=== PATIENT | female | born 1960 | race Asian ===

== ENCOUNTER 2016-10-27 13:00 | Inpatient (IN) | payer MEDICARE, OTHER ==
[~2016-10-27] VITALS: Ht 160 cm; Wt 74.8 kg
--- NOTE | 2016-10-27 13:10 | NUR ---
RICARDO FROM HOME DT CHEST TIGHTNESS/ PRESSURE LIKE- 09/22 SINCE THIS MORNING. PATIENT RECEIVED AA04. APPEARS IN NO APPARENT DISTRESS, RESPIRATION EVEN AND UNLABORED. PATIENT'S SKIN IS WARM TO TOUCH AND NON DIAPHORETIC. PATIENT IS AFEBRILE. VSS
[2016-10-27 13:18] LABS: BASOPHILS # (AUTO) 0.2 /CMM (0.0-0.2); BASOPHILS % (AUTO) 2.6 % (0.0-2.0); EOSINOPHILS # (AUTO) 0.3 /CMM (0.0-0.7); EOSINOPHILS % (AUTO) 4.9 % (0.0-6.0); HEMATOCRIT 38 % (33-45); HEMOGLOBIN 12.6 g/dL (11.5-14.8); LYMPHOCYTES # (AUTO) 1.3 /CMM (0.8-4.8); LYMPHOCYTES % (AUTO) 22.8 % (20.0-44.0); MEAN CORPUSCULAR HEMOGLOBIN 33 PG (26.0-33.0); MEAN CORPUSCULAR HGB CONC 33 g/dl (31.0-36.0); MEAN CORPUSCULAR VOLUME 98 fL (82-100); MONOCYTES # (AUTO) 0.3 /CMM (0.1-1.30); MONOCYTES % (AUTO) 5.7 % (2.0-12.0); NEUTROPHILS # (AUTO) 3.7 /CMM (1.8-8.9); PLATELET COUNT (AUTO) 95 /CMM (150-450); RDW COEFFICIENT OF VARIATION 13.3 (11.5-15.0); RED BLOOD CELL COUNT(AUTO) 3.86 MIL/uL (4.0-5.2); WHITE BLOOD COUNT (AUTO) 5.8 K/uL (4.3-11.0)
--- NOTE | 2016-10-27 13:20 | NUR ---
PATIENT WAS TAKEN TO CT
[2016-10-27 13:27] LABS: CALCIUM, SERUM 8.6 mg/dL (8.5-10.1); CARBON DIOXIDE 28 mmol/L (21-32); CHLORIDE 106 mmol/L (98-107); CREATININE 1.3 mg/dL (0.6-1.3); GLUCOSE 181 mg/dL (74-106); POTASSIUM 4.1 mmol/L (3.5-5.1); SODIUM SERUM 140 mmol/L (136-145); UREA NITROGEN, BLOOD 19 mg/dL (7-18)
[2016-10-27] MEDS ORDERED: IV NS 0.9% 500 ML BAG IV ONE (13:30)
--- NOTE | 2016-10-27 13:30 | NUR ---
PT IS BACK FROM CT
[2016-10-27 13:32] LABS: INR 1.06 (0.87-1.13)
[2016-10-27 13:34] LABS: TROPONIN I < 0.017 ng/mL (0.00-0.056)
[2016-10-27 13:38] LABS: ALANINE AMINOTRANSFERASE 55 U/L (12-78); ALBUMIN 2.5 g/dL (3.4-5.0); ALKALINE PHOSPHATASE 128 U/L (46-116); ASPARTATE AMINOTRANSFERASE 84 U/L (15-37); BILIRUBIN,DIRECT 0.3 mg/dL (0.0-0.2); BILIRUBIN,TOTAL 0.9 mg/dL (0.2-1.0); LIPASE 225 U/L (73-393); TOTAL PROTEIN, SERUM 6.9 g/dL (6.4-8.2)
--- NOTE | 2016-10-27 13:52 | NUR ---
PATIENT WILL BE ADMITTED INTO ROOM 312-2.
--- NOTE | 2016-10-27 14:15 | NUR ---
REPORT GIVEN TO EVELYN ALBERTO FOR CONTINUITY OF CARE
[2016-10-27 14:17] LABS: APPEARANCE,URINE Clear (CLEAR); BILIRUBIN,URINE Negative (NEGATIVE); BLOOD, URINE Moderate Ery/uL (NEGATIVE); COLOR,URINE Yellow (YELLOW); KETONES,URINE Negative (NEGATIVE); LEUKOCYTE ESTERASE ,URINE Negative (NEGATIVE); NITRITE, URINE Negative (NEGATIVE); PROTEIN,URINE >=300 mg/dl (NEGATIVE); UGLUCOSE Negative (NEGATIVE)
[2016-10-27 14:23] LABS: BACTERIA,URINE Rare /HPF (None Seen); SQUAMOUS EPITHELIAL CELL,UR Moderate /HPF (None Seen)
--- NOTE | 2016-10-27 14:23 | NUR ---
CALLED [employer], BUTTON DECORATING MACHINE OPERATOR WAS PAGED.
[2016-10-27] MEDS ORDERED: DULO30CA2 PO (14:42)
[2016-10-27] MEDS ORDERED: TOPI50TA21 PO (14:42)
[2016-10-27] MEDS ORDERED: GABA-534 PO (14:42)
[2016-10-27] MEDS ORDERED: FLUT16SP BNOSTRILS (14:42)
[2016-10-27] MEDS ORDERED: CARV3.122 PO (14:42)
[2016-10-27] MEDS ORDERED: TEMA30CA PO (14:42)
[2016-10-27] MEDS ORDERED: FURO40TA5 PO (14:42)
[2016-10-27] MEDS ORDERED: AMLO2.5T PO (14:42)
[2016-10-27] MEDS ORDERED: INSU3INS6 SQ (14:42)
[2016-10-27] MEDS ORDERED: ROSU10TA PO (14:42)
[2016-10-27] MEDS ORDERED: SUCR1TAB PO (14:42)
[2016-10-27] MEDS ORDERED: LIRA0.6P SQ (14:42)
[2016-10-27] MEDS ORDERED: LORA1TAB PO (14:42)
[2016-10-27] MEDS ORDERED: ESOM40CA PO (14:42)
[2016-10-27] MEDS ORDERED: CALC667C6 PO (14:42)
[2016-10-27] MEDS ORDERED: FLUT1BLS IH (14:42)
[2016-10-27] MEDS ORDERED: FEBU40TA PO (14:42)
[2016-10-27] MEDS ORDERED: LEVO5TAB13 PO (14:42)
[2016-10-27] MEDS ORDERED: METRONIDAZOLE 500MG/ NS 100ML 100 ML IV ONE ×2 (14:58→15:00)
[2016-10-27] MEDS ORDERED: LEVOFLOXACIN 750 MG /D5W 150ML 150 ML IV ONE ×2 (14:58→15:00)
[2016-10-27] MEDS ORDERED: ASPIRIN 325 MG TABLET PO ONE (15:00)
[2016-10-27] MEDS ORDERED: FLUTICASONE PROPIONATE 16 GM BOTTLE NS PRN (15:00)
[2016-10-27] MEDS ORDERED: Z GUARD REMEDY 2 OZ OINT TP PRN (15:00)
[2016-10-27] MEDS ORDERED: ZOLPIDEM TARTRATE 5 MG TABLET PO PRN (15:00)
[2016-10-27] MEDS ORDERED: LORAZEPAM 1 MG TABLET PO PRN (15:00)
[2016-10-27] MEDS ORDERED: ACETAMINOPHEN 325 MG TABLET PO PRN (15:00)
[2016-10-27] MEDS ORDERED: MAG HYDROX/AL HYDROX/SIMETH 30 ML UDC PO PRN (15:00)
[2016-10-27] MEDS ORDERED: HYDROMORPHONE INJ 2 MG/ML DISP.SYRIN IV PRN (15:00)
[2016-10-27] MEDS ORDERED: MAGNESIUM HYDROXIDE 30 ML UDC PO PRN (15:00)
[2016-10-27] MEDS ORDERED: ASPIRIN 325 MG TABLET ONE (15:11)
--- NOTE | 2016-10-27 15:23 | NUR ---
PT TRANSPORTED TO [address] [place] [address]
[2016-10-27 15:30] VITALS: BP 166/95
--- NOTE | 2016-10-27 15:30 | NUR ---
APPLIANCE REPAIR TECHNICIAN NOTES 55 YEARS OLD BROUGHT IN FROM ER, ADMITTED FOR CHEST PAIN FROM HOME. PATIENT IS A/O X4, AMBULATORY. IV IN LEFT HAND G20. MADE COMFORTABLE IN BED, LEADS APPLIED. V/S TAKEN AND RECORDED. PATIENT IS COOPERATIVE. LEVAQUIN 750MG IV AND METRONIDAZOLE 500MG CURRENTLY INFUSING DURING TRANSFERRED FROM ER, NO S/S OF ADVERSE REACTION. PLACE CALL LIGHT WITHIN REACH. WILL CONT TO MONITOR.
[2016-10-27 15:48] LABS: BAND % (MANUAL) 2 % (0.0-5.0); LYMPHOCYTES % (MANUAL) 17 % (16-48); MONOCYTES % (MANUAL) 3 % (0-11.0); NEUTROPHILS % (MANUAL) 78 (42-76)
[2016-10-27 16:00] VITALS: BP 153/94
[2016-10-27] MEDS: IV NS 0.9% 1,000 ML IV PRN (16:21)
--- NOTE | 2016-10-27 16:52 | NUR ---
PATIENT IS REQUESTING DILAUDID MEDICATION, PATIENT IS ON TYLENOL PO PRN. LISTED PATIENT ALLERGY TO MORPHINE. PATIENT STATED SHE IS TAKING DILAUDID WITHOUT PROBLEM OR ANY SIDE EFFECT, WITNESSED BY SHARATH. NOTIFIED DR. BAEZ, ORDERED DILAUDID 0.5MG IV Q 6HR PRN, NOTED AND ACKNOWLEDGED.
--- NOTE | 2016-10-27 17:22 | NUR ---
ELEVATED LACTIC ACID 2.[address] BAEZ.
[2016-10-27] MEDS: HYDROMORPHONE 1 MG/1 ML DISP.SYRIN IV PRN (18:21)
--- NOTE | 2016-10-27 18:49 | NUR ---
ARCHITECTURAL REPRESENTATIVE CLOSING NOTES PATIENT IN BED, ON ROOM AIR, NO SOB. ON TELE MONITOR SINUS RHYTHM WITH BBB HR 91. NO EPISODE OF CHEST PAIN DURING THE SHIFT. APPEARS COMFORTABLE IN BED. IV IN LEFT HAND G20 PATENT AND INTACT, IV NS INFUSING AT 75ML/HR. CALL LIGHT WITHIN REACH. WILL ENDORSE TO PERFUMER RN FOR CONTINUITY OF CARE.
--- NOTE | 2016-10-27 19:30 | NUR ---
MS CHRISTOPHER INITIAL NOTES GOT REPORT FROM AN NURSE DOLLY. SEEN PT IN BED AWAKE AND ALERT WATCHING TV WITH IV INFUSING AT THIS TIME. DENIES ANY PAIN OR ANY DISCOMFORT.TELE SR PER MONITOR. SHE ALSO WITH DVT PUMP ON BILATERAL LOWER LEGS . NO EDEMA NOTED. ENCOURAGE HER TO USED THE CALL LIGHT SYSTEM IF SHE NEEDS SOME HELP OR ASSISTANCE WILL CONTINUE TO MONITOR. PLACE CALL LIGHT AT REACH.
[2016-10-27 20:04] VITALS: BP 136/80
--- NOTE | 2016-10-27 20:11 | NUR ---
MANAGER BRAND/CLOSING NOTES' ENDORSE TO ANOTHER NURSE FOR CONTINUITY OF CARE.
--- NOTE | 2016-10-27 20:12 | NUR ---
RN NOTES RECEIVED PT AWAKE, HOB ELEVATED, NO SOB, NOT IN DISTRESS, ON ROOM AIR AND TOLERATED WELL. PT ALERT AND ORIENTED X4, DENIES PAIN, NAUSEA AND VOMITING AT THIS TIME. TELE MONITOR READS SINUS RHYTHM WITH HEART RATE AT 90. IV ACCESS ON LEFT HAND PATENT AND INTACT WITH ONGOING IVF INFUSING WELL. DVT PUMP ON AND TOLERATED WELL. KEPT COMFORTABLE AND ATTENDED. KEPT BED IN THE LOWEST POSITION, LOCKED, SIDE RAILS X2 UP WITH CALL LIGHT WITH IN REACH. WILL CONTINUE TO MONITOR PT.
[2016-10-27 22:00] VITALS: BP 136/80
[2016-10-27] MEDS: GABAPENTIN 300 MG CAPSULE PO SCH (22:09)
[2016-10-27] MEDS: INSULIN DETEMIR 100 UNIT/ML CARTRIDGE SQ SCH (22:10)
[2016-10-27] MEDS: TEMAZEPAM 15 MG CAPSULE PO PRN (22:11)
[2016-10-27] MEDS: ONDANSETRON HCL/PF 4 MG/2 ML VIAL IVP PRN (22:12)
--- NOTE | 2016-10-27 22:12 | NUR ---
RN NOTES PT VERBALIZED DIFFICULTY IN SLEEPING AND FEELS NAUSEATED. RESTORIL 30 MGS TAB AND ZOFRAN 4 MG IV GIVEN. WILL CONTINUE TO MONITOR PT.
--- NOTE | 2016-10-27 23:15 | NUR ---
RN NOTES RECEIVED NEW ORDER FROM DR BAEZ, PT FOR FNA OF ABDOMINAL FLUID WITH US GUIDANCE AND US GUIDED CYST ASPIRATION. PT MADE AWARE AND WILL PLACE PT ON NPO AFTER MIDNIGHT. PT WILL SIGN CONSENT IN AM.
[2016-10-27] MEDS ORDERED: PIPERACILLIN /TAZOBACTAM 2.25 G VIAL IV ONE (23:49)
[2016-10-28] VITALS (9 sets, daily range): BP systolic 136–157; BP diastolic 75–99
[2016-10-28] MEDS: HYDROMORPHONE 1 MG/1 ML DISP.SYRIN IV PRN ×3 (00:16→16:50)
--- NOTE | 2016-10-28 00:16 | NUR ---
RN NOTES PT COMPLAINS OF ABDOMINAL PAIN 10/23, DILAUDID 0.5 MG GIVEN IV. WILL CONTINUE TO MONITOR.
[2016-10-28] MEDS: PIPERACILLIN /TAZOBACTAM 4.5 G in IV D5W 50 ML IV SCH ×2 (00:25→05:31)
[2016-10-28] MEDS: ONDANSETRON HCL/PF 4 MG/2 ML VIAL IVP PRN ×2 (04:56→13:42)
--- NOTE | 2016-10-28 04:56 | NUR ---
RN NOTES PT FEELS NAUSEATED, ZOFRAN 4 MG GIVEN IV. WILL CONTINUE TO MONITOR PT.
[2016-10-28] MEDS ORDERED: PIPERACILLIN /TAZOBACTAM 2.25 G VIAL IV ONE ×2 (05:13→05:17)
[2016-10-28] MEDS: IV NS 0.9% 1,000 ML IV PRN (05:20)
--- NOTE | 2016-10-28 06:39 | NUR ---
RN NOTES PT AWAKE, NO SOB, NOT IN DISTRESS ON ROOM AIR WITH GOOD SATURATION. VITAL SIGNS STABLE, AFEBRILE. TELEMONITOR READS SINUS RHYTHM WITH HEART RATE AT 90. NO COMPLAIN OF CHEST PAIN, NO EPISODE OF VOMITING, NAUSEATED X2 CONTROLLED BY ZOFRAN IV. PT FOR FNA OF ABDOMINAL FLUID WITH ULTRASOUND GUIDANCE AND ULTRA SOUND GUIDED CYST ASPIRATION. PLACED PT ON NPO SINCE MIDNIGHT. KEPT PAIN AT TOLERABLE LEVEL. ALL NEEDS ATTENDED. WILL ENDORSE TO MORNING RN FOR CONTINUITY OF CARE.
[2016-10-28 07:00] LABS: BASOPHILS % (AUTO) 0.5 % (0.0-2.0); EOSINOPHILS # (AUTO) 0.6 /CMM (0.0-0.7); EOSINOPHILS % (AUTO) 11.5 % (0.0-6.0); HEMATOCRIT 35 % (33-45); HEMOGLOBIN 12.1 g/dL (11.5-14.8); LYMPHOCYTES # (AUTO) 1.6 /CMM (0.8-4.8); LYMPHOCYTES % (AUTO) 29.6 % (20.0-44.0); MEAN CORPUSCULAR HEMOGLOBIN 34 PG (26.0-33.0); MEAN CORPUSCULAR HGB CONC 34 g/dl (31.0-36.0); MEAN CORPUSCULAR VOLUME 98 fL (82-100); MONOCYTES # (AUTO) 0.4 /CMM (0.1-1.30); MONOCYTES % (AUTO) 7.2 % (2.0-12.0); NEUTROPHILS # (AUTO) 2.8 /CMM (1.8-8.9); NEUTROPHILS % (AUTO) 51.2 % (43.0-81.0); RDW COEFFICIENT OF VARIATION 14.4 (11.5-15.0); RED BLOOD CELL COUNT(AUTO) 3.59 MIL/uL (4.0-5.2); WHITE BLOOD COUNT (AUTO) 5.5 K/uL (4.3-11.0)
[2016-10-28 07:17] LABS: CALCIUM, SERUM 8.1 mg/dL (8.5-10.1); CREATININE 1.1 mg/dL (0.6-1.3); MAGNESIUM 1.7 mg/dL (1.8-2.4); PHOSPHORUS 3.9 mg/dL (2.5-4.9); POTASSIUM 4.1 mmol/L (3.5-5.1)
[2016-10-28 07:43] LABS: PLATELET COUNT (AUTO) 40 /CMM (150-450)
--- NOTE | 2016-10-28 08:00 | NUR ---
AUTOMOBILE RELOCATION ENGINEER AM NOTES RECEIVED PT AWAKE, HOB ELEVATED, NO SOB, NOT IN DISTRESS, ON ROOM AIR AND TOLERATED WELL. PT ALERT AND ORIENTED X4, DENIES PAIN, NAUSEA AND VOMITING AT THIS TIME. TELE MONITOR READS SINUS RHYTHM WITH HEART RATE AT 73. IV ACCESS ON LEFT HAND PATENT AND INTACT WITH ONGOING IVF INFUSING WELL TO RFA. DVT PUMP ON AND TOLERATED WELL. KEPT COMFORTABLE AND ATTENDED. KEPT BED IN THE LOWEST POSITION, LOCKED, SIDE RAILS X2 UP WITH CALL LIGHT WITH IN REACH. WILL CONTINUE TO MONITOR PT.
[2016-10-28 08:13] LABS: EOSINOPHILS % (MANUAL) 15 % (0-4); LYMPHOCYTES % (MANUAL) 33 % (16-48); MONOCYTES % (MANUAL) 7 % (0-11.0); NEUTROPHILS % (MANUAL) 45 (42-76)
[2016-10-28] MEDS: ATORVASTATIN 10 MG TABLET PO SCH (09:00)
[2016-10-28] MEDS ORDERED: LEVOCETIRIZINE DIHYDROCHLORIDE 5 MG PO PRN (09:00)
[2016-10-28] MEDS: DULOXETINE HCL 30 MG CAPSULE.DR PO SCH (09:00)
[2016-10-28] MEDS ORDERED: FLUTICASONE/VILANTEROL 1 EACH BLST.W.DEV IH PRN (09:00)
[2016-10-28] MEDS: TOPIRAMATE 25 MG TABLET PO SCH (09:00)
[2016-10-28] MEDS: SUCRALFATE 1 G TABLET PO SCH (09:00)
[2016-10-28] MEDS: Magnesium 1GM/D5W 100ML PREMIX 100 ML IV SCH ×4 (09:54→17:54)
--- NOTE | 2016-10-28 10:17 | NUR ---
WOUND CARE CONSULT: PT PRESENTS WITH INTACT SKIN AND SOME STAINING OF SKIN AT COCCYX AREA WITH BLANCHABLE REDNESS AND SMALL SCAR. PT ABLE TO TURN AND REPOSITION HERSELF IN BED. PT IS CONTINENT. YOSEPH SCORE IS 19. WILL SEE PRN. Addendum: 10/28/16 at 1019 by FRITZ JAMES WNDNU Amended: Links added.
[2016-10-28] MEDS ORDERED: FEE PK DOSING 1 MIN EA MC ONE (10:32)
--- NOTE | 2016-10-28 11:30 | NUR ---
PT WAS BROUGHT DOWN FOR HIDA SCAN PROCEDURE.STABLE V/S DENYING PAIN OR DISTRESS.
[2016-10-28 13:17] LABS: THYROID STIMULATING HORMONE 2.114 uIU/mL (0.358-3.74); URIC ACID 6.7 mg/dL (2.6-7.2)
--- NOTE | 2016-10-28 13:24 | NUR ---
PT CAME BACK FROM HIDA SCAN PROCEDURE.
[2016-10-28] MEDS: AMLODIPINE BESYLATE 2.5 MG TABLET PO SCH (13:50)
[2016-10-28] MEDS: CARVEDILOL 3.125 MG TABLET PO SCH (13:51)
[2016-10-28] MEDS: PANTOPRAZOLE 40 MG TABLET.DR PO SCH (13:51)
[2016-10-28] MEDS: FUROSEMIDE 40 MG TABLET PO SCH (13:52)
[2016-10-28] MEDS: VANCOMYCIN 1 GM in IV D5W 250 ML IV SCH ×2 (13:53→23:04)
[2016-10-28] MEDS: PIPERACILLIN /TAZOBACTAM 3.375 G in IV D5W 50 ML IV SCH ×2 (15:18→18:00)
[2016-10-28] MEDS: BOOST GLUCOSE CONTROL VANILLA 237 ML BOX PO SCH (17:54)
--- NOTE | 2016-10-28 18:00 | NUR ---
ZOSYN IV SCHEDULED FOR 1800 HELD DUE TO BEING JUST ADMINISTERED 3 HRS AGO BECAUSE OF THE HIDA SCAN PROCEDURE DELAYING THE ADMINISTRATION OF ZOSYN IV. NOTIFIED THE PHARMACIST WHO STATED TO HOLD THE 1800 DOSE SINCE IT'S TOO SOON.
[2016-10-28] MEDS: ONDANSETRON HCL/PF 4 MG/2 ML VIAL IV PRN ×2 (18:08→23:31)
[2016-10-28] MEDS ORDERED: IV NS 0.9% 250 ML IV ONE (19:05)
[2016-10-28] MEDS ORDERED: IOHEXOL-300 100 ML VIAL IV ONE (19:05)
[2016-10-28] MEDS ORDERED: BARIUM SULFATE SUSP 450 ML BOTTLE PO ONE (19:06)
--- NOTE | 2016-10-28 19:20 | NUR ---
RN NOTES RECEIVED PT AWAKE, HOB ELEVATED, NO SOB, NOT IN DISTRESS, ON ROOM AIR AND TOLERATED WELL. PT ALERT AND ORIENTED X4, DENIES PAIN, NAUSEA AND VOMITING AT THIS TIME. TELE MONITOR READS SINUS RHYTHM WITH HEART RATE AT 78. IV ACCESS ON LEFT HAND PATENT AND INTACT WITH ONGOING IVF INFUSING WELL. DVT PUMP ON AND TOLERATED WELL. KEPT COMFORTABLE AND ATTENDED. KEPT BED IN THE LOWEST POSITION, LOCKED, SIDE RAILS X2 UP WITH CALL LIGHT WITH IN REACH. WILL CONTINUE TO MONITOR PT.
--- NOTE | 2016-10-28 19:23 | NUR ---
FORESTRY TECHNICAL OFFICER ATTEMPTED TO ADMINISTER ORAL CONTRAST FOR CT PELVIS/ABD SCAN. PATIENT UNABLE TO KEEP ORAL CONTRAST IN AND VOMITED THE CONTRAST. NOTIFIED VARSHA RETIREMENT ASSISTANT AND LEFT AND MESSAGE IN VOICEMAIL ABOUT SITUATION. AWAITING CALL BACK.
--- NOTE | 2016-10-28 19:30 | NUR ---
RN NOTES PT FOR CT OF ABDOMEN AND PELVIS WITH PO AND IV CONTRAST. UNABLE TO DO CT WITH PO BECAUSE PT FEELS NAUSEATED WITH THE CONTRAST. NEW IV ACCESS STARTED ON RIGHT WRIST WITH GAUGE [address] WITH IV CONTRAST. PT WAS PICKED UP FOR CT OF ABDOMEN WITH IV CONTRAST IN STABLE CONDITION.
[2016-10-28] MEDS: GABAPENTIN 300 MG CAPSULE PO SCH (22:53)
--- NOTE | 2016-10-28 22:53 | NUR ---
RN NOTES PT FEELS ANXIOUS, PT IS VERBALIZING REGARDING HEALTH CONDITION. ATIVAN 1 MG TAB GIVEN PO AND TOLERATED WELL. WILL CONTINUE TO MONITOR PT.
[2016-10-28] MEDS: INSULIN DETEMIR 100 UNIT/ML CARTRIDGE SQ SCH (23:03)
--- NOTE | 2016-10-28 23:03 | NUR ---
RN NOTES BLOOD SUGAR CHECKED 215MG/DL, LEVEMIR 20 UNITS GIVEN SUBCU. WILL CONTINUE TO MONITOR PT.
--- NOTE | 2016-10-28 23:31 | NUR ---
RN NOTES PT FEELS NAUSEATED, ZOFRAN 4 MG GIVEN IV. WILL CONTINUE TO MONITOR PT.
[2016-10-29] VITALS (13 sets, daily range): BP systolic 113–162; BP diastolic 59–97
[2016-10-29] MEDS: PIPERACILLIN /TAZOBACTAM 3.375 G in IV D5W 50 ML IV SCH ×5 (00:38→23:19)
--- NOTE | 2016-10-29 03:00 | NUR ---
RN NOTES CALLED BLOOD BANK TO FOLLOW UP FOR THE PLATELET 2 UNITS THAT WAS ORDERED, PER QA LEAD ITS READY BUT IT NEEDS TO BE PROCESSED. WILL CALL WHEN ITS READY.
--- NOTE | 2016-10-29 04:15 | NUR ---
RN NOTES 1ST UNIT OF PLATELET TAKEN BUT UNABLE TO SCAN, IT SAYS SCANNED PRODUCT DOES NOT MATCH THE SELECTED UNIT, TRIED SEVERAL TIMES BUT UNABLE TO GO THROUGH. CALLED BLOOD BANK, PER MACHINE MAINTENANCE REPAIRER RETURN THE PLATELET AND WILL TRY TO RESOLVE THE PROBLEM.
--- NOTE | 2016-10-29 05:00 | NUR ---
RN NOTES ON HAND PLATELET BAG RETURNED TO BLOOD BANK, TRIED TO RESOLVE THE PROBLEM BY THE BIOINFORMATICS ASSISTANT BUT UNABLE TO DO SO. PER BIOINFORMATICS ASSISTANT TO COME BACK AT 0530 FOR THE OTHER BIOINFORMATICS ASSISTANT TO RESOLVE THE PROBLEM.
--- NOTE | 2016-10-29 05:30 | NUR ---
RN NOTES CAME BACK TO BLOOD BANK, ANOTHER INSTRUCTIONAL COACH TRIED TO RESOLVE THE ISSUE. IT WAS FOUND OUT THAT THE PLATELET UNIT THAT WAS ISSUED IS THE 2ND BAG. TRIED TO RESOLVE THE PROBLEM IN THE SYSTEM BUT UNABLE TO DO SO. IT NEEDS THE IT TO RESET IT IN THE SYSTEM. I ASK FOR THE OTHER UNIT OF PLATELET SO IT CAN BE TRANSFUSE TO THE PT WHILE RESOLVING THE ISSUE.
--- NOTE | 2016-10-29 06:05 | NUR ---
RN NOTES FIRST UNIT OF PLATELET STARTED. VITAL SIGNS STABLE. PT DENIES ANY DISCOMFORT. WILL CONTINUE TO MONITOR PT.
--- NOTE | 2016-10-29 06:35 | NUR ---
RN NOTES FIRST UNIT ABOUT TO FINISH, WENT TO BLOOD BANK TO GET THE SECOND UNIT BUT ITS NOT FIXED YET IN THE SYSTEM. IT WAS PLACED A PRIORITY FOR THE IT TO FIXED AND WILL GIVE A CALL WHEN ITS READY. CHARGE NURSE MADE AWARE.
--- NOTE | 2016-10-29 06:39 | NUR ---
RN NOTES FIRST UNIT OF PLATELET TRANSFUSED. VITAL SIGNS STABLE. PT DENIES ANY DISCOMFORT. WILL CONTINUE TO MONITOR PT.
--- NOTE | 2016-10-29 07:20 | NUR ---
RN NOTES PT AWAKE, NO SOB, NOT IN DISTRESS, ON ROOM AIR AND TOLERATED WELL. VITAL SIGNS STABLE, AFEBRILE. DENIES CHEST PAIN, NO EPISODE OF VOMITING. HAD 1 EPISODE OF NAUSEA. PLACED ON NPO AFTER MIDNIGHT FOR TODAY'S PROCEDURE. NO REACTION TO PLATELET TRANSFUSION. TELEMONITOR READS SINUS RHYTHM AT 78. ALL NEEDS ATTENDED. ENDORSED TO MORNING RN TO FOLLOW UP WITH BLOOD BANK FOR THE SECOND UNIT OF PLATELET AND FOR CONTINUITY OF CARE.
[2016-10-29] MEDS: PANTOPRAZOLE 40 MG TABLET.DR PO SCH (07:30)
--- NOTE | 2016-10-29 08:00 | NUR ---
HOST/HOSTESS AM NOTES: RECEIVED PATIENT AWAKE IN BED. LOC X4. NO DISTRESS NOTED. PATIENT NPO PRIOR TO SURGERY. AMBULATORY. ON 2L NC SATING AT 99%. NO SOB NOTED. NO PAIN NOTED. VS STABLE. RESTING IN BED COMFORTABLY. CALL LIGHT WITHIN REACH.
[2016-10-29] MEDS: ONDANSETRON HCL/PF 4 MG/2 ML VIAL IV PRN (08:19)
[2016-10-29] MEDS: DULOXETINE HCL 30 MG CAPSULE.DR PO SCH (09:00)
[2016-10-29] MEDS: SUCRALFATE 1 G TABLET PO SCH (09:00)
[2016-10-29] MEDS: ATORVASTATIN 10 MG TABLET PO SCH (09:00)
[2016-10-29] MEDS: BOOST GLUCOSE CONTROL VANILLA 237 ML BOX PO SCH ×3 (09:00→15:50)
[2016-10-29] MEDS: TOPIRAMATE 25 MG TABLET PO SCH (09:00)
[2016-10-29 09:16] LABS: BASOPHILS % (AUTO) 0.3 % (0.0-2.0); EOSINOPHILS # (AUTO) 0.9 /CMM (0.0-0.7); HEMATOCRIT 36 % (33-45); HEMOGLOBIN 12.1 g/dL (11.5-14.8); LYMPHOCYTES # (AUTO) 1.4 /CMM (0.8-4.8); LYMPHOCYTES % (AUTO) 22.5 % (20.0-44.0); MEAN CORPUSCULAR HEMOGLOBIN 33 PG (26.0-33.0); MEAN CORPUSCULAR HGB CONC 34 g/dl (31.0-36.0); MEAN CORPUSCULAR VOLUME 98 fL (82-100); MONOCYTES # (AUTO) 0.5 /CMM (0.1-1.30); MONOCYTES % (AUTO) 7.3 % (2.0-12.0); NEUTROPHILS # (AUTO) 3.6 /CMM (1.8-8.9); NEUTROPHILS % (AUTO) 55.9 % (43.0-81.0); PLATELET COUNT (AUTO) 99 /CMM (150-450); RDW COEFFICIENT OF VARIATION 13.9 (11.5-15.0); RED BLOOD CELL COUNT(AUTO) 3.65 MIL/uL (4.0-5.2); WHITE BLOOD COUNT (AUTO) 6.4 K/uL (4.3-11.0)
--- NOTE | 2016-10-29 09:25 | NUR ---
PLATELETS VERIFIED WITH CO-RN WITH PROBLEM IN SCANNER,CALLED AND CLARIFIED WITH BLOOD BANK AND SPOKE TO TANYA WHO STATED THAT THEY ARE HAVING A PROBLEM WITH THE COMPUTER SYSTEM AND STATED THAT THE BLOOD PRODUCT(PLATELETS) IS MADE TO GO AND IS OK TO BE TRANSFUSED.
[2016-10-29 09:30] LABS: CALCIUM, SERUM 8.4 mg/dL (8.5-10.1); CREATININE 1.3 mg/dL (0.6-1.3); PHOSPHORUS 3.6 mg/dL (2.5-4.9); POTASSIUM 3.7 mmol/L (3.5-5.1)
[2016-10-29] MEDS ORDERED: NALOXONE PREFILLED SYRINGE 2 MG/2 ML SYRINGE IV ONE (09:30)
[2016-10-29] MEDS ORDERED: MIDAZOLAM HCL 5MG/ML VIAL 25 MG/5 ML VIAL IV ONE (09:30)
[2016-10-29] MEDS ORDERED: FENTANYL PF 250MCG/5ML AMPUL IV ONE (09:30)
--- NOTE | 2016-10-29 09:31 | NUR ---
STARTED PLATELETS TRANSFUSION AT 0931. PATIENT STABLE. NO DISTRESS NOTED. VS STABLE. MONITORING FOR ANY ADVERSE REACTIONS. STARTED PLATELETS AFTER VERIFYING WITH ANOTHER RN.
[2016-10-29 09:36] LABS: INR 1.09 (0.87-1.13); PROTHROMBIN TIME 11.7 SECS (9.5-12.7)
--- NOTE | 2016-10-29 09:46 | NUR ---
REASSESSED PATIENT VS AFTER 15MINTUES OF STARTING TRANSFUSION. NO DISTRESS NOTED. NO PAIN NOTED. NO SOB NOTED. NO ADVERSE REACTIONS NOTED. VS STABLE. IV LINE PATENT. WILL CONTINUE TO MONITOR.
[2016-10-29 09:50] LABS: EOSINOPHILS % (MANUAL) 9 % (0-4); LYMPHOCYTES % (MANUAL) 22 % (16-48); MONOCYTES % (MANUAL) 5 % (0-11.0); NEUTROPHILS % (MANUAL) 64 (42-76)
[2016-10-29] MEDS ORDERED: LIDOCAINE HCL/PF 1% 30 ML SDV ONE (09:56)
--- NOTE | 2016-10-29 10:00 | NUR ---
AT 1000 PATIENT TRANSFERRED VIA BED TO RADIOLOGY FOR CT SCAN AND DRAINAGE OF ADALBERTO-RENAL FLUID. PLATELETS INFUSION CONTINUED. PATIENT STABLE UPON TRANSFER.
--- NOTE | 2016-10-29 10:30 | NUR ---
PLATELET UNIT #2 COMPLETED. VSS. NO EVIDENCE OF ANY ADVERSE REACTIONS.,
--- NOTE | 2016-10-29 10:30 | NUR ---
PT TAKEN TO RADIOLOGY DEPT FOR A PROCEDURE, RT PERCUTANEOUS DRAINAGE (ADALBERTO-RENAL). CONSENT WAS SIGNED BY PT AFTER MD EXPLAINED PROCEDURE WITNESSED BY PRIMARY NURSE.PT VERBALIZED UNDERSTANDIN. PT HAS BEEN NPO SINCE MIDNITE. VSS. AIRWAY PATENT.
--- NOTE | 2016-10-29 10:51 | NUR ---
TIME OUT INITIATED AND COMPLETED WITH (DR BOOKER) AND RN INTO WHICH ALL CONCURRED , VERIFICATIONS CHECKED OUT. PT ON MONITOR WITH 02 VIA [employer].
--- NOTE | 2016-10-29 11:00 | NUR ---
MD AT BEDSIDE PREPPING SITE WITH COMPLETE STERILE TECHNIQUE/ FIELD OBSERVED.
--- NOTE | 2016-10-29 11:05 | NUR ---
VERSED ADMINSITERED. PT REMAINS ON MONITOR, AIRWAY PATENT AND PROTECTED WITH VISIBLE CHEST RISE/FALL.
--- NOTE | 2016-10-29 11:10 | NUR ---
NO CHANGE IN MENTAL STATUS. VSS REMAINS STABLE WITH SP02 100% , VISIBLE CHEST RIST/FALL.
--- NOTE | 2016-10-29 11:15 | NUR ---
STERILE FIELD/TECHNIQUE BEING MAINTAINED BY
--- NOTE | 2016-10-29 11:30 | NUR ---
AIRWAY REMAINS PATENT AND PROTECTED. VISIBLE CHEST RISE/FALL. VSS.
--- NOTE | 2016-10-29 11:38 | NUR ---
MENTAL STATUS REMAINS INTACT, DENIES PAIN. REPORTS SHE IS COMFORTABLE.
--- NOTE | 2016-10-29 11:47 | NUR ---
PROCEDURE STILL IN PROGRESS WITH APPROX 5 ML BRB ASPIRATED. NO CHANGE IN CONDITION. PT CONT TO DENY PAIN.
--- NOTE | 2016-10-29 11:51 | NUR ---
PROCEDURE COMPLETED. NO BREAK IN STERILFE FIELD/TECHNIQUE OBSERVED. AIRWAY REMAINS PATENT AND PROTECTED.
--- NOTE | 2016-10-29 12:08 | NUR ---
PT BACK INTO HER ROOM. SBAR TO PRIMARY RN.NO COMPLICATIONS FROM PROCEDURE.
--- NOTE | 2016-10-29 12:20 | NUR ---
POST OP CT ADALBERTO-RENAL DRAINAGE NOTE: PATIENT RETURNED FROM RADIOLOGY POST CT ADALBERTO-RENAL DRAINAGE. VS UPON ARRIVAL 158/86, PULSE 84, RR20, TEMP 98.4, O2 100% ON 2L NC. PATIENT PLATELETS TRANSFUSION CONTINUED AND COMPLETED DURING PROCEDURE. NO DISTRESS NOTED. NO PAIN NOTED. NO SOB. NO N/V NOTED AFTER ATE LUNCH IN ROOM. ADMINISTERED ALL MEDICATIONS ORDERED. RESTING COMFORTABLY IN BED. CALL LIGHT WITHIN REACH. WILL CONTINUE TO MONITOR.
[2016-10-29] MEDS: VANCOMYCIN 1 GM in IV D5W 250 ML IV SCH (12:38)
[2016-10-29] MEDS: IV NS 0.9% 1,000 ML IV PRN (12:39)
[2016-10-29] MEDS: FUROSEMIDE 40 MG TABLET PO SCH (12:47)
[2016-10-29] MEDS: AMLODIPINE BESYLATE 2.5 MG TABLET PO SCH (12:47)
[2016-10-29] MEDS: CARVEDILOL 3.125 MG TABLET PO SCH (12:47)
--- NOTE | 2016-10-29 13:10 | NUR ---
NARCAN IV,SUBLIMAZE IV AND VERSED IV MEDS WERE GIVEN IN RADIOLOGY DURING CT PERCUTANEOUS DRAINAGE OF RT PERIRENAL FLUID COLLECTION PROCEDURE.
[2016-10-29 14:16] LABS: *SPE A/G RATIO 0.8 (0.7-1.7); *SPE ALBUMIN 2.6 g/dL (2.9-4.4); *SPE ALPHA-1-GLOBULIN 0.2 g/dL (0.0-0.4); *SPE ALPHA-2-GLOBULIN 0.4 g/dL (0.4-1.0); *SPE BETA GLOBULIN 0.8 g/dL (0.7-1.3); *SPE GLOBULIN, TOTAL 3.4 g/dL (2.2-3.9); *SPE M-SPIKE Not Observed g/dL (Not Observed); *SPEGAMMA GLOBULIN 2.1 g/dL (0.4-1.8)
--- NOTE | 2016-10-29 17:43 | NUR ---
CREW DISPATCHER CLOSING NOTE: PATIENT A&OX4. PT STABLE. NO DISTRESS NOTED. NO PAIN NOTED. ADMINISTERED ALL MEDICATIONS. NO ADVERSE REACTIONS NOTED. NO SOB NOTED. ON 2L NC. SAT AT 99%. ATE DINNER IN ROOM DURING SHIFT. NO N/V NOTED. RESTING COMFORTABLY IN BED. CALL LIGHT WITHIN REACH.
[2016-10-29] MEDS: ALPRAZOLAM 0.25 MG TABLET PO PRN (18:04)
--- NOTE | 2016-10-29 19:00 | NUR ---
MS TELE NOTES RECEIVED PT IN BED, A/O X3, NOT IN ACUTE DISTRESS, IV SITE INTACT NO S/S OF INFILTRATION. CALL LIGHT WITHIN REACH. SAFETY MEASURES IN PLACE, ON LOW BED, WILL CONTINUE TO MONITOR PT.
[2016-10-29] MEDS: GABAPENTIN 300 MG CAPSULE PO SCH (21:22)
[2016-10-29] MEDS: INSULIN DETEMIR 100 UNIT/ML CARTRIDGE SQ SCH (21:23)
[2016-10-29] MEDS: TEMAZEPAM 15 MG CAPSULE PO PRN (21:28)
[2016-10-29] MEDS: VANCOMYCIN 0.75 GM in IV D5W 250 ML IV SCH (23:00)
--- NOTE | 2016-10-29 23:21 | NUR ---
VANCO ON HOLD PER LEVEL HOLD DOSE IF LEVEL IS > 20MCG/ML PHARMACY WILL CONTINUE TO FOLLOW DAILY AND ADJUST DOSE NEEDED
[2016-10-30] MEDS: IV NS 0.9% 1,000 ML IV PRN (05:04)
[2016-10-30] MEDS: PIPERACILLIN /TAZOBACTAM 3.375 G in IV D5W 50 ML IV SCH ×3 (05:04→17:26)
--- NOTE | 2016-10-30 06:38 | NUR ---
MS RN NOTES PATIENT COMFORTABLY ASLEEP AND EASILY AWAKEN, A/O X3, HEAD OF BED ELEVATED FOR BETTER LUNG EXPANSION. TOLERATING ROOM AIR 02 SAT 98%, IV SITE NO S/S OF INFILTRATED PATENT AND FLUSHED, NOT IN ACUTE DISTRESS. RESPIRATIONS EVEN AND UNLABORED, NURSING CARE RENDERED, NEEDS ATTENDED AND ANTICIPATED, KEPT CLEAN AND DRY AND COMFORTABLE, GOOD SKIN CARE PROVIDED. FREQUENT VISUAL CHECK DONE FOR SAFETY EVERY 2 HOURS. NO S/S OF BLEEDING NOTED. SAFE HAZARD FREE ENVIRONMENT PROVIDED. CALL LIGHT WITHIN EASY TO REACH, ON LOW BED AT ALL TIMES TO ENSURE SAFETY, WILL ENDORSE TO THE NEXT SHIFT CONTINUE PLAN OF CARE.
[2016-10-30 08:00] VITALS: BP_SYST 121; BP_SYST 148; BP_DIAS 52; BP_DIAS 78
--- NOTE | 2016-10-30 08:00 | NUR ---
RECEIVED PT A&O X3. NO DISTRESS NOTED. NO SOB NOTED. SLIGHT PAIN IN ABDOMEN AREA DUE TO POST SURGERY. SITE CLEAR. CARDIAC DIET. ATTACHED TO 0.9NS RUNNING AT 75ML/HR. IV SITE CLEAR. PATENT. NO REDNESS. NO INFILTRATION NOTED. ATE BREAKFAST IN ROOM. NO N/V NOTED. RESTING COMFORTABLY IN BED. CALL LIGHT WITHIN REACH.
[2016-10-30 08:23] LABS: CALCIUM, SERUM 8.4 mg/dL (8.5-10.1); CREATININE 1.6 mg/dL (0.6-1.3); PHOSPHORUS 3.4 mg/dL (2.5-4.9); POTASSIUM 4.4 mmol/L (3.5-5.1)
[2016-10-30] MEDS: PANTOPRAZOLE 40 MG TABLET.DR PO SCH (09:05)
[2016-10-30] MEDS: SUCRALFATE 1 G TABLET PO SCH (09:05)
[2016-10-30] MEDS: AMLODIPINE BESYLATE 2.5 MG TABLET PO SCH (09:05)
[2016-10-30] MEDS: DULOXETINE HCL 30 MG CAPSULE.DR PO SCH (09:05)
[2016-10-30] MEDS: TOPIRAMATE 25 MG TABLET PO SCH (09:05)
[2016-10-30] MEDS: FUROSEMIDE 40 MG TABLET PO SCH (09:05)
[2016-10-30] MEDS: ATORVASTATIN 10 MG TABLET PO SCH (09:05)
[2016-10-30] MEDS: CARVEDILOL 3.125 MG TABLET PO SCH (09:06)
[2016-10-30] MEDS: BOOST GLUCOSE CONTROL VANILLA 237 ML BOX PO SCH ×3 (09:10→17:23)
[2016-10-30] MEDS: HYDROMORPHONE 1 MG/1 ML DISP.SYRIN IV PRN (09:51)
[2016-10-30] MEDS ORDERED: IV NS 0.9% 1,000 ML IV PRN (10:30)
[2016-10-30] MEDS: ONDANSETRON HCL/PF 4 MG/2 ML VIAL IV PRN (10:58)
[2016-10-30] MEDS: VANCOMYCIN 0.75 GM in IV D5W 250 ML IV SCH ×2 (11:00→18:15)
--- NOTE | 2016-10-30 11:00 | NUR ---
CONTACTED PHARMACY DUE TO A HIGH LEVEL OF TROPH OF 23. PHARMACY STATED TO HOLD VANCOMYCIN AND A NEW ORDER/ DOSAGE WILL BE SENT FOR THE NEXT DOSE. VANCOMYCIN HELD.
[2016-10-30 16:00] VITALS: BP 112/70
[2016-10-30 16:37] VITALS: BP 112/90
--- NOTE | 2016-10-30 17:52 | NUR ---
EVELYN FOREMAN [facility] NOTE: PT A&OX3. NO DISTRESS NOTED. PAIN MEDICATIONS ADMINISTERED FOR PAIN CONTROL. NO SOB NOTED. ATE LUNCH AND DINNER IN ROOM. NO N/V NOTED. REFUSED SOME MORNING AND EVENING MEDICATIONS. ALL RISKS AND BENEFITS EXPLAINED. RESIDENT IS NON-COMPLIANT. NO CHANGES IN CONDITIONS. RESTING COMFORTABLY IN BED. CALL LIGHT WITHIN REACH. Addendum: 10/30/16 at 1807 by PATRICIA HERNANDEZ RN DISCARD NOTE. DOCUMENTED THE WRONG PT.
--- NOTE | 2016-10-30 17:55 | NUR ---
RN MED SURGE NOTE: PT A&OX3. NO DISTRESS NOTED. NO PAIN NOTED. NO SOB NOTED. ATE LUNCH AND DINNER IN ROOM. SLIGHT NAUSEA NOTED. NO EMESIS. ADMINISTERED ZOFRAN X1. NO N/V AT THIS TIME. TOOK ALL MEDICATIONS ON TIME. NO ADVERSE REACTIONS NOTED. INFUSING 0.9% NS RUNNING AT 75ML/HR. ADMINISTERED IV ZOSYN ATB X2. NO ADVERSE REACTIONS NOTED. RESTING COMFORTABLY IN BED. CALL LIGHT WITHIN REACH.
[2016-10-30] MEDS: ALPRAZOLAM 0.25 MG TABLET PO PRN (18:16)
--- NOTE | 2016-10-30 19:00 | NUR ---
DIRECTOR OF CATH LAB NOTES RECEIVED PT IN BED, A/O X3, PATIENT NOT IN ACUTE DISTRESS, IV SITE INTACT NO S/S OF INFILTRATION. CALL LIGHT WITHIN REACH. SAFETY MEASURES IN PLACE, ON LOW BED, WILL CONTINUE TO MONITOR PT.
[2016-10-30 20:00] VITALS: BP 129/77
[2016-10-30 20:33] VITALS: BP 129/77
[2016-10-30 20:41] LABS: CREATININE, URINE 96.2 MG/DL (30.0-125.0)
[2016-10-30] MEDS: GABAPENTIN 300 MG CAPSULE PO SCH (21:28)
[2016-10-30] MEDS: TEMAZEPAM 15 MG CAPSULE PO PRN (21:29)
[2016-10-30] MEDS: INSULIN DETEMIR 100 UNIT/ML CARTRIDGE SQ SCH (21:35)
[2016-10-31] MEDS: IV NS 0.9% 1,000 ML IV PRN ×2 (00:15→16:01)
[2016-10-31] MEDS: PIPERACILLIN /TAZOBACTAM 3.375 G in IV D5W 50 ML IV SCH ×5 (00:16→23:46)
--- NOTE | 2016-10-31 06:36 | NUR ---
MS RN CLOSING NOTES PATIENT COMFORTABLY ASLEEP AND EASILY AWAKEN, A/O X 4, HEAD OF BED ELEVATED FOR BETTER LUNG EXPANSION. TOLERATING ROOM AIR 02 SAT 98%, IV SITE NO S/S OF INFILTRATED PATENT AND FLUSHED, NS AT 75CC/HR RUNNING AND TOLERATED WELL, ON ATB WITH NO A/R NOTED. NOT IN ACUTE DISTRESS. RESPIRATIONS EVEN AND UNLABORED, NURSING CARE RENDERED, NEEDS ATTENDED AND ANTICIPATED, KEPT CLEAN AND DRY AND COMFORTABLE, GOOD SKIN CARE PROVIDED. FREQUENT VISUAL CHECK DONE FOR SAFETY EVERY 2 HOURS. NO COMPLAINS OF CHEST PAIN THROUGHOUT THE 12 HOUR SHIFT. SAFE HAZARD FREE ENVIRONMENT PROVIDED. CALL LIGHT WITHIN EASY TO REACH, ON LOW BED AT ALL TIMES TO ENSURE SAFETY, WILL ENDORSE TO THE NEXT SHIFT CONTINUE PLAN OF CARE.
[2016-10-31 07:15] LABS: HEMATOCRIT 35 % (33-45); HEMOGLOBIN 11.9 g/dL (11.5-14.8); MEAN CORPUSCULAR HEMOGLOBIN 34 PG (26.0-33.0); MEAN CORPUSCULAR HGB CONC 35 g/dl (31.0-36.0); MEAN CORPUSCULAR VOLUME 98 fL (82-100); PLATELET COUNT (AUTO) 79 /CMM (150-450); RDW COEFFICIENT OF VARIATION 13.9 (11.5-15.0); RED BLOOD CELL COUNT(AUTO) 3.53 MIL/uL (4.0-5.2); WHITE BLOOD COUNT (AUTO) 6.3 K/uL (4.3-11.0)
[2016-10-31 07:16] LABS: BASOPHILS % (AUTO) 0.7 % (0.0-2.0); EOSINOPHILS # (AUTO) 0.7 /CMM (0.0-0.7); EOSINOPHILS % (AUTO) 11.5 % (0.0-6.0); LYMPHOCYTES # (AUTO) 1.5 /CMM (0.8-4.8); LYMPHOCYTES % (AUTO) 23.4 % (20.0-44.0); MONOCYTES # (AUTO) 0.4 /CMM (0.1-1.30); MONOCYTES % (AUTO) 5.8 % (2.0-12.0); NEUTROPHILS # (AUTO) 3.7 /CMM (1.8-8.9); NEUTROPHILS % (AUTO) 58.6 % (43.0-81.0)
--- NOTE | 2016-10-31 07:16 | NUR ---
MS RN NOTES RECEIVED PT AWAKE IN BED IN NO ACUTE SIGNS OF DISTRESS. A/O X3, NO C/O PAIN OR DISCOMFORTS AT THIS TIME. ON ROOM AIR, RESPIRATION EVEN AND UNLABORED. MIDLINE ON REN INTACT AND PATENT WITH NS @ 75ML/HR, NO SIGNS OF INFILTRATION OR PHLEBITIS TO SITE NOTED. ATTACHED TO 0.9NS RUNNING AT 75ML/HR. BED LOW AND LOCKED WITH SIDE-RAILS UPX2. CALL LIGHT WITHIN REACH. WILL MAINTAIN ALL SAFETY MEASURES AND WILL CONTINUE TO MONITOR PT ACCORDINGLY.
[2016-10-31 07:56] LABS: CREATININE 1.4 mg/dL (0.6-1.3); MAGNESIUM 1.7 mg/dL (1.8-2.4); PHOSPHORUS 2.9 mg/dL (2.5-4.9)
[2016-10-31 08:00] VITALS: BP 144/82
[2016-10-31] MEDS: PANTOPRAZOLE 40 MG TABLET.DR PO SCH (08:12)
[2016-10-31] MEDS: SUCRALFATE 1 G TABLET PO SCH (08:12)
[2016-10-31] MEDS: TOPIRAMATE 25 MG TABLET PO SCH (08:12)
[2016-10-31] MEDS: AMLODIPINE BESYLATE 2.5 MG TABLET PO SCH (08:13)
[2016-10-31] MEDS: DULOXETINE HCL 30 MG CAPSULE.DR PO SCH (08:13)
[2016-10-31] MEDS: CARVEDILOL 3.125 MG TABLET PO SCH (08:14)
[2016-10-31] MEDS: ATORVASTATIN 10 MG TABLET PO SCH (08:14)
[2016-10-31] MEDS: ONDANSETRON HCL/PF 4 MG/2 ML VIAL IV PRN ×2 (08:20→13:17)
[2016-10-31] MEDS: BOOST GLUCOSE CONTROL VANILLA 237 ML BOX PO SCH ×3 (08:20→16:03)
[2016-10-31 08:37] LABS: EOSINOPHILS % (MANUAL) 13 % (0-4); LYMPHOCYTES % (MANUAL) 26 % (16-48); MONOCYTES % (MANUAL) 5 % (0-11.0); NEUTROPHILS % (MANUAL) 56 (42-76)
[2016-10-31] MEDS: Magnesium 1GM/D5W 100ML PREMIX 100 ML IV SCH ×2 (10:59→11:50)
[2016-10-31] MEDS: VANCOMYCIN 0.75 GM in IV D5W 250 ML IV SCH (12:10)
--- NOTE | 2016-10-31 13:24 | NUR ---
RN NOTES PATIENT NOTED WITH LOW MG LEVEL OF 1.7 TODAY, REPLACED WITH 1GM/100ML D5W X2 BAGS. WILL CONTINUE TO MONITOR.
[2016-10-31 15:40] VITALS: BP 141/87
[2016-10-31 16:00] VITALS: BP 141/87
[2016-10-31] MEDS: ALPRAZOLAM 0.25 MG TABLET PO PRN (17:21)
--- NOTE | 2016-10-31 18:53 | NUR ---
MS RN CLOSING NOTES PT IN BED AWAKE, A/O X3, NO C/O PAIN THROUGHOUT THE DAY. ON ROOM AIR, BREATHING EVEN AND UNLABORED WITH NO SOB NOTED. MIDLINE ON REN INTACT AND PATENT WITH NS @ 75ML/HR, NO SIGNS OF INFILTRATION NOTED. BED LOW AND LOCKED WITH SIDE-RAILS UPX2. CALL LIGHT WITHIN REACH. ALL DUE MEDS GIVEN ORDERED AND TOLERATED. ALL NEEDS AND CARE ATTENDED WELL. WILL ENDORSED TO INDUSTRIAL EDITOR NURSE FOR NILSA. .
--- NOTE | 2016-10-31 19:30 | NUR ---
MS RN OPENING NOTES: PATIENT IN BED, AOX4, ON O2 AT 2 LPM VIA NC, BREATHING EVEN AND UNLABORED. BREATH SOUNDS CLEAR TO AUSCULTATION. PATIENT APPEARS CALM AND IN NO DISTRESS AT THIS TIME, ALTHOUGH PATIENT STATED THAT SHE ASKED FOR XANAX EARLIER BECAUSE OF ANXIETY, BUT IT HAS SINCE BEEN RELIEVED. SHE DOES COMPLAIN OF 9/10 PAIN OVER HER R ABDOMINAL INCISION SITE AND IS ASKING FOR PAIN MEDICATION. REN MIDLINE INTACT AND PATENT, INFUSING WELL WITH NS RUNNING AT 75 ML/HR. PROVIDED FOR COMFORT AND SAFETY. WILL CONT TO MONITOR.
[2016-10-31] MEDS: HYDROMORPHONE 1 MG/1 ML DISP.SYRIN IV PRN (19:46)
--- NOTE | 2016-10-31 19:52 | NUR ---
RN NOTES: PATIENT COMPLAINED OF 9/10 PAIN OVER THE INCISION SITE OVER HER R ANTERIOR ABDOMEN. ADMINISTERED DILAUDID 0.5 MG IV PRN. WILL CONT TO MONITOR.
[2016-10-31 20:00] VITALS: BP_SYST 128; BP_SYST 131; BP_DIAS 72; BP_DIAS 76
[2016-10-31] MEDS: GABAPENTIN 300 MG CAPSULE PO SCH (21:02)
[2016-10-31] MEDS: INSULIN DETEMIR 100 UNIT/ML CARTRIDGE SQ SCH (21:03)
[2016-10-31] MEDS: TEMAZEPAM 15 MG CAPSULE PO PRN (23:46)
[2016-11-01] MEDS: VANCOMYCIN 0.75 GM in IV D5W 250 ML IV SCH (04:47)
[2016-11-01] MEDS: PIPERACILLIN /TAZOBACTAM 3.375 G in IV D5W 50 ML IV SCH ×2 (06:17→11:50)
--- NOTE | 2016-11-01 06:44 | NUR ---
MS RN CLOSING NOTES: PATIENT IN BED, AOX4, ON O2 AT 2 LPM VIA NC, BREATHING EVEN AND UNLABORED. APPEARS CALM AND IN NO DISTRESS. DENIES ABDOMINAL PAIN AT THIS TIME. REN MIDLINE INTACT AND INFUSING WELL WITH NS RUNNING AT 75 ML/HR. NO ACUTE CHANGE IN CONDITION NOTED THROUGH SHIFT. DUE MEDS GIVEN. PROVIDED FOR COMFORT AND SAFETY. BED IN LOWEST AND LOCKED POSITION, SIDERAILS UP X3. CALL LIGHT WITHIN REACH. WILL ENDORSE TO AM RN FOR NILSA.
[2016-11-01 07:09] LABS: CALCIUM, SERUM 8.1 mg/dL (8.5-10.1); CREATININE 1.3 mg/dL (0.6-1.3); POTASSIUM 3.8 mmol/L (3.5-5.1)
--- NOTE | 2016-11-01 07:35 | NUR ---
RN OPENING NOTES RECEIVED PT. IN BED A&OX4. BREATHING UNLABORED ON OXYGEN 2L/MIN WITH NASAL CANNULA. NO S/S OF ACUTE DISTRESS. IV FLUIDS RUNNING AT 75 ML/HR. BED IS IN LOW POSITION, 2 SIDE RAILS UP, AND INSTRUCTED PT. TO USE CALL LIGHT FOR ASSISTANCE..
[2016-11-01 08:00] VITALS: BP 130/70
[2016-11-01] MEDS: PANTOPRAZOLE 40 MG TABLET.DR PO SCH (08:09)
[2016-11-01] MEDS: BOOST GLUCOSE CONTROL VANILLA 237 ML BOX PO SCH ×3 (08:10→17:52)
[2016-11-01] MEDS: DULOXETINE HCL 30 MG CAPSULE.DR PO SCH (09:00)
[2016-11-01] MEDS: ATORVASTATIN 10 MG TABLET PO SCH (09:01)
[2016-11-01] MEDS: SUCRALFATE 1 G TABLET PO SCH (09:01)
[2016-11-01] MEDS: CARVEDILOL 3.125 MG TABLET PO SCH (09:02)
[2016-11-01] MEDS: TOPIRAMATE 25 MG TABLET PO SCH (09:02)
[2016-11-01] MEDS: AMLODIPINE BESYLATE 2.5 MG TABLET PO SCH (09:03)
[2016-11-01] MEDS: HYDROMORPHONE 1 MG/1 ML DISP.SYRIN IV PRN (09:34)
--- NOTE | 2016-11-01 09:41 | NUR ---
RN NOTES SILVANA CHARGE NURSE WITNESSED MEDICATION DILAUDID 0.5MG BEING WASTED.
[2016-11-01] MEDS ORDERED: CEPH-570 PO (10:13)
[2016-11-01] MEDS ORDERED: HYDR-552 PO (10:13)
[2016-11-01] MEDS: IV NS 0.9% 1,000 ML IV PRN (11:50)
[2016-11-01 16:00] VITALS: BP 101/62
--- NOTE | 2016-11-01 17:49 | NUR ---
RN NOTES DISCHARGE INSTRUCTIONS PT. IS IN MEDICALLY STABLE CONDITION. PROVIDED DISCHARGE INSTRUCTIONS, AND MEDICATION EDUCATION, PT. VERBALIZED UNDERSTANDING. BELONGINGS LIST WAS CHECKED AND SIGNED BY PT. AND NURSE. IV RIGHT UPPER MIDLINE REMOVED WITHOUT COMPLICATIONS, AND ID BAND REMOVED.
--- NOTE | 2016-11-01 17:52 | NUR ---
PICTURES TAKEN BEFORE DISCHARGE.
--- NOTE | 2016-11-01 18:08 | NUR ---
HOLE DIGGER OPERATOR PT. LEFT SOH IN WHEELCHAIR IN MEDICALLY STABLE CONDITION WITH FAMILY. PT. LEFT WITH DISCHARGE PACKET AND HER BELONGINGS.
== END 2016-11-01 17:50 | disposition home or self-care (01) | DRG 871 ==
LOC: ER 13:02 → TELE 14:25 → MED 10-29 10:37
PROVIDERS: ADMIT Internal Medicine; ATTEND Internal Medicine
PROC: 0W9G3ZZ Drainage of Peritoneal Cavity, Percutaneous Approach (ICD-10-PCS; 2016-10-29)
PROC: 30233R1 Transfusion of Nonautologous Platelets into Peripheral Vein, Percutaneous Approach (ICD-10-PCS; 2016-10-29)
PROC: 05H933Z Insertion of Infusion Device into Right Brachial Vein, Percutaneous Approach (ICD-10-PCS; principal; 2016-10-30)
DX: A41.9 Sepsis, unspecified organism (principal); N17.0 Acute kidney failure with tubular necrosis; E87.2 Acidosis; I13.0 Hypertensive heart and chronic kidney disease with heart failure and stage 1 through stage 4 chronic kidney disease, or unspecified chronic kidney disease; I50.32 Chronic diastolic (congestive) heart failure; D69.6 Thrombocytopenia, unspecified; E11.22 Type 2 diabetes mellitus with diabetic chronic kidney disease; K57.92 Diverticulitis of intestine, part unspecified, without perforation or abscess without bleeding; B19.10 Unspecified viral hepatitis B without hepatic coma; E83.51 Hypocalcemia; I25.10 Atherosclerotic heart disease of native coronary artery without angina pectoris; E78.5 Hyperlipidemia, unspecified; K21.9 Gastro-esophageal reflux disease without esophagitis; I70.90 Unspecified atherosclerosis; E66.9 Obesity, unspecified; Z68.29 Body mass index [BMI] 29.0-29.9, adult; B19.20 Unspecified viral hepatitis C without hepatic coma; N18.2 Chronic kidney disease, stage 2 (mild); Z95.1 Presence of aortocoronary bypass graft; K74.60 Unspecified cirrhosis of liver; K57.90 Diverticulosis of intestine, part unspecified, without perforation or abscess without bleeding; F41.9 Anxiety disorder, unspecified; E86.9 Volume depletion, unspecified
CPT/HCPCS: 36415; 36569; 71010-TC; 71250-TC; 75989-TC; 76942-TC; 78226; 80048-TC; 80061-TC; 80074; 80076-TC; 80202-TC; 81000-TC; 82306; 82378; 82570-TC; 82728-TC; 82962-TC; 83540-TC; 83605-TC; 83615-TC; 83690-TC; 83735-TC; 84100-TC; 84155; 84165; 84300-TC; 84443-TC; 84484-TC; 84550-TC; 85025-TC; 85045-TC; 85610-TC; 85730-TC; 86850-TC; 87040-TC; 87070-TC; 87081-TC; 89051-TC; 93307-TC; A4606; A9537; J1170; J1815; J1956; J2250; J2310; J2405; J2543; J3010; J3370; J3475; J3490; J7030; J7040; J7050; J7060; P9016-BL; P9034-BL; Q9967; Z7610

== ENCOUNTER 2016-11-10 09:56 | Emergency (ER) | payer MEDICARE, OTHER ==
[~2016-11-10] VITALS: Ht 160 cm; Wt 81.6 kg
[~2016-11-10 09:56] MED LIST: AMLO2.5T PO; CALC667C6 PO; CARV3.122 PO; CEPH-570 PO; DULO30CA2 PO; ESOM40CA PO; FEBU40TA PO; FLUT16SP BNOSTRILS; FLUT1BLS IH; FURO40TA5 PO; GABA-534 PO; HYDR-552 PO; INSU3INS6 SQ; LEVO5TAB13 PO; LIRA0.6P SQ; LORA1TAB PO; ROSU10TA PO; SUCR1TAB PO; TEMA30CA PO; TOPI50TA21 PO
--- NOTE | 2016-11-10 10:08 | NUR ---
AAOX3, CAME TO ER C/O RL ABD PAIN WITH NAUSEA AND VOMITING SINCE YESTERDAY. SKIN IS WARM AND DRY. RESP IS EVEN AND UNLABORED WITH NAD NOTED. AWAITING MD FOR EVAL.
--- NOTE | 2016-11-10 10:15 | NUR ---
PATIENT PRESENTS TO ER C/O ABOMDINAL PAIN AND NAUSEA AND VOMTING SINCE YESTERDAY. PATIENT IS BREATHING EVEN AND UNLABORED ON ROOM AIR. NO SOB. VITALS STABLE. SAFETY AND COMFORT MEASURES IN PLACE. AWAITING MD ORDERS.
[2016-11-10 10:33] LABS: BASOPHILS # (AUTO) 0.1 /CMM (0.0-0.2); BASOPHILS % (AUTO) 0.8 % (0.0-2.0); EOSINOPHILS # (AUTO) 0.3 /CMM (0.0-0.7); EOSINOPHILS % (AUTO) 4.6 % (0.0-6.0); HEMATOCRIT 41 % (33-45); HEMOGLOBIN 13.7 g/dL (11.5-14.8); LYMPHOCYTES # (AUTO) 1.8 /CMM (0.8-4.8); LYMPHOCYTES % (AUTO) 27.9 % (20.0-44.0); MEAN CORPUSCULAR HEMOGLOBIN 32 PG (26.0-33.0); MEAN CORPUSCULAR HGB CONC 33 g/dl (31.0-36.0); MEAN CORPUSCULAR VOLUME 97 fL (82-100); MONOCYTES # (AUTO) 0.5 /CMM (0.1-1.30); NEUTROPHILS # (AUTO) 3.9 /CMM (1.8-8.9); NEUTROPHILS % (AUTO) 58.7 % (43.0-81.0); PLATELET COUNT (AUTO) 79 /CMM (150-450); RED BLOOD CELL COUNT(AUTO) 4.22 MIL/uL (4.0-5.2); WHITE BLOOD COUNT (AUTO) 6.6 K/uL (4.3-11.0)
[2016-11-10 10:41] LABS: CALCIUM, SERUM 8.6 mg/dL (8.5-10.1); CREATININE 1.3 mg/dL (0.6-1.3)
[2016-11-10 10:46] LABS: ALBUMIN 2.7 g/dL (3.4-5.0); BILIRUBIN,DIRECT 0.3 mg/dL (0.0-0.2); BILIRUBIN,TOTAL 1.1 mg/dL (0.2-1.0); TOTAL PROTEIN, SERUM 7.2 g/dL (6.4-8.2)
[2016-11-10 11:00] LABS: APPEARANCE,URINE Hazy (CLEAR); BILIRUBIN,URINE MODERATE (NEGATIVE); BLOOD, URINE Moderate Ery/uL (NEGATIVE); COLOR,URINE Dark Yellow (YELLOW); KETONES,URINE Trace (NEGATIVE); LEUKOCYTE ESTERASE ,URINE Negative (NEGATIVE); NITRITE, URINE Negative (NEGATIVE); PH,URINE 5.5 (5.0-8.0); PROTEIN,URINE >=300 mg/dl (NEGATIVE); UGLUCOSE Negative (NEGATIVE)
[2016-11-10] MEDS ORDERED: HYDROMORPHONE 1 MG/1 ML DISP.SYRIN IV ONE (11:00)
[2016-11-10] MEDS ORDERED: ONDANSETRON HCL/PF - ER 4 MG/2 ML VIAL IV ONE (11:00)
[2016-11-10] MEDS ORDERED: HYDROMORPHONE 1 MG/1 ML DISP.SYRIN ONE (11:09)
[2016-11-10] MEDS ORDERED: ONDANSETRON HCL/PF 4 MG/2 ML VIAL ONE (11:09)
[2016-11-10 11:11] LABS: BACTERIA,URINE None seen /HPF (None Seen); MUCUS,URINE Few /LPF (None Seen); SQUAMOUS EPITHELIAL CELL,UR Few /HPF (None Seen)
--- NOTE | 2016-11-10 11:15 | NUR ---
PATIENT MEDICATED PER MD ORDERS.
[2016-11-10] MEDS ORDERED: IV NS 0.9% 250 ML IV ONE (11:20)
[2016-11-10] MEDS ORDERED: IOHEXOL-300 100 ML VIAL IV ONE (11:20)
--- NOTE | 2016-11-10 11:20 | NUR ---
PATIENT TAKEN TO CT VIA STRETCHER
[2016-11-10 11:23] LABS: EOSINOPHILS % (MANUAL) 4 % (0-4); LYMPHOCYTES % (MANUAL) 26 % (16-48); MONOCYTES % (MANUAL) 2 % (0-11.0); NEUTROPHILS % (MANUAL) 68 (42-76)
--- NOTE | 2016-11-10 11:35 | NUR ---
PATIENT RETURNED FROM CT.
[2016-11-10 12:33] VITALS: BP 128/85
--- NOTE | 2016-11-10 12:45 | NUR ---
Patient discharged to home in stable condition. Written and verbal after care instructions given. Patient verbalizes understanding of instruction.
== END 2016-11-10 12:45 | disposition home or self-care (01) ==
LOC: ER 09:57
DX: T81.9XXA Unspecified complication of procedure, initial encounter (principal); K76.9 Liver disease, unspecified; D69.6 Thrombocytopenia, unspecified; I11.0 Hypertensive heart disease with heart failure; I50.9 Heart failure, unspecified; E78.5 Hyperlipidemia, unspecified; E11.9 Type 2 diabetes mellitus without complications; E66.9 Obesity, unspecified; I25.10 Atherosclerotic heart disease of native coronary artery without angina pectoris; Z79.4 Long term (current) use of insulin; Z90.49 Acquired absence of other specified parts of digestive tract; Z90.6 Acquired absence of other parts of urinary tract; Z95.1 Presence of aortocoronary bypass graft; Z88.6 Allergy status to analgesic agent; Y92.89 Other specified places as the place of occurrence of the external cause
CPT/HCPCS: 36415; 80048-TC; 80076-TC; 81000-TC; 85025-TC; A4606; J1170; J2405; J7050; Q9967; Z7610

== ENCOUNTER 2016-11-19 15:01 | Inpatient (IN) | payer MEDICARE, OTHER ==
[~2016-11-19] VITALS: Ht 160 cm; Wt 81.6 kg
--- NOTE | 2016-11-19 15:01 | NUR ---
PT ALERT ORIENTED C/O CHEST PAIN STARTED 2 HRS EXTENDED DAY TEACHER, NO IMPROVEMENT WITH DILAUDID PO. GOWNED PT. PLACED ON MONITOR.
--- NOTE | 2016-11-19 15:25 | NUR ---
RAC #18 IV ACCESS. BLOOD SMAPLE COLLECTED SENT TO LAB
[2016-11-19] MEDS ORDERED: ASPIRIN 325 MG TABLET PO ONE (15:30)
[2016-11-19] MEDS ORDERED: ONDANSETRON HCL/PF 4 MG/2 ML VIAL IV ONE (15:30)
[2016-11-19] MEDS ORDERED: NITROGLYCERIN 0.4 MG/TAB BOTTLE SL ONE (15:30)
--- NOTE | 2016-11-19 15:30 | NUR ---
FRONT FACER AT BEDSIDE
[2016-11-19 15:34] LABS: BASOPHILS % (AUTO) 0.6 % (0.0-2.0); EOSINOPHILS # (AUTO) 0.3 /CMM (0.0-0.7); EOSINOPHILS % (AUTO) 3.9 % (0.0-6.0); HEMATOCRIT 45 % (33-45); HEMOGLOBIN 14.9 g/dL (11.5-14.8); LYMPHOCYTES # (AUTO) 1.4 /CMM (0.8-4.8); LYMPHOCYTES % (AUTO) 21.7 % (20.0-44.0); MEAN CORPUSCULAR HEMOGLOBIN 32 PG (26.0-33.0); MEAN CORPUSCULAR HGB CONC 34 g/dl (31.0-36.0); MEAN CORPUSCULAR VOLUME 97 fL (82-100); MONOCYTES # (AUTO) 0.4 /CMM (0.1-1.30); MONOCYTES % (AUTO) 6.2 % (2.0-12.0); NEUTROPHILS # (AUTO) 4.4 /CMM (1.8-8.9); NEUTROPHILS % (AUTO) 67.6 % (43.0-81.0); PLATELET COUNT (AUTO) 72 /CMM (150-450); RDW COEFFICIENT OF VARIATION 12.9 (11.5-15.0); RED BLOOD CELL COUNT(AUTO) 4.61 MIL/uL (4.0-5.2); WHITE BLOOD COUNT (AUTO) 6.5 K/uL (4.3-11.0)
[2016-11-19] MEDS ORDERED: NITROGLYCERIN 0.4 MG/TAB BOTTLE ONE (15:34)
[2016-11-19] MEDS ORDERED: ASPIRIN 325 MG TABLET ONE (15:34)
[2016-11-19] MEDS ORDERED: ONDANSETRON HCL/PF 4 MG/2 ML VIAL ONE (15:34)
[2016-11-19 15:42] LABS: CALCIUM, SERUM 9.1 mg/dL (8.5-10.1); CARBON DIOXIDE 30 mmol/L (21-32); CHLORIDE 104 mmol/L (98-107); CREATININE 1.3 mg/dL (0.6-1.3); GLUCOSE 130 mg/dL (74-106); POTASSIUM 4.1 mmol/L (3.5-5.1); SODIUM SERUM 139 mmol/L (136-145); UREA NITROGEN, BLOOD 23 mg/dL (7-18)
[2016-11-19 15:47] LABS: INR 1.06 (0.87-1.13)
[2016-11-19 15:51] LABS: TROPONIN I < 0.017 ng/mL (0.00-0.056)
[2016-11-19] MEDS ORDERED: ALPR2TAB2 PO (16:30)
[2016-11-19] MEDS ORDERED: ZOLP10TA2 PO (16:30)
--- NOTE | 2016-11-19 16:43 | NUR ---
ASSIGNED TELE BED 114-2. GIVE REPORT TO EVELYN TRINH
--- NOTE | 2016-11-19 16:57 | NUR ---
GAVE REPORT TO BLAZE RIVAS TELE ACUTE CHEST PAIN DR BAEZ. PLACED ON MONITOR. ACLS TRANSPORT
[2016-11-19] MEDS ORDERED: ACETAMINOPHEN 325 MG TABLET PO PRN (17:00)
[2016-11-19] MEDS ORDERED: MAGNESIUM HYDROXIDE 30 ML UDC PO PRN (17:00)
[2016-11-19] MEDS ORDERED: MAG HYDROX/AL HYDROX/SIMETH 30 ML UDC PO PRN (17:00)
[2016-11-19] MEDS ORDERED: Z GUARD REMEDY 2 OZ OINT TP PRN (17:00)
[2016-11-19 17:33] VITALS: BP 131/73
[2016-11-19 17:33] LABS: NEUTROPHILS % (MANUAL) 70 (42-76)
[2016-11-19 17:34] LABS: EOSINOPHILS % (MANUAL) 4 % (0-4); LYMPHOCYTES % (MANUAL) 21 % (16-48); MONOCYTES % (MANUAL) 5 % (0-11.0)
--- NOTE | 2016-11-19 17:50 | NUR ---
The patient, Jewell Estrada, 55 y/o,female admitted by GARETH BAEZ MD, was given written information regarding hospital policies, unit procedures and contact persons. Valuables were checked and inventoried. Belongings at bedside. Lower dentures left at home.
--- NOTE | 2016-11-19 18:38 | NUR ---
Patient says she takes IV dilauded for pain and something for nausea with it each time. Wants MD to prescribe. Says claude makes her nauseated.
[2016-11-19] MEDS: HYDROCODONE/APAP 5/325MG 1 EACH TABLET PO PRN (18:41)
--- NOTE | 2016-11-19 19:11 | NUR ---
Handoff report to night nurse.
[2016-11-19 20:00] VITALS: BP 109/75
[2016-11-19] MEDS: ONDANSETRON HCL/PF 4 MG/2 ML VIAL IVP PRN (21:25)
[2016-11-19] MEDS: FLUTICASONE/VILANTEROL 1 EACH BLST.W.DEV IH SCH (21:30)
[2016-11-19] MEDS ORDERED: FLUTICASONE PROPIONATE 16 GM BOTTLE NS PRN (21:30)
[2016-11-19] MEDS ORDERED: DEXTROSE 50%-WATER 50 ML DISP.SYRIN IV PRN (21:30)
[2016-11-19 22:00] VITALS: BP 109/75
[2016-11-19] MEDS: GABAPENTIN 300 MG CAPSULE PO SCH (22:00)
[2016-11-19] MEDS ORDERED: GABAPENTIN 300 MG CAPSULE ONE (22:41)
[2016-11-19] MEDS: BLOOD SUGAR DIAGNOSTIC 1 EACH STRIP VI SCH (23:04)
[2016-11-20] VITALS (7 sets, daily range): BP systolic 93–148; BP diastolic 52–95
[2016-11-20] MEDS ORDERED: HYDROMORPHONE INJ 2 MG/ML DISP.SYRIN ONE (00:18)
[2016-11-20] MEDS ORDERED: PIPERACILLIN /TAZOBACTAM 2.25 G VIAL IV ONE (00:54)
[2016-11-20] MEDS: PIPERACILLIN /TAZOBACTAM 4.5 G in IV D5W 50 ML IV SCH ×2 (01:16→05:00)
[2016-11-20] MEDS: HYDROMORPHONE 1 MG/1 ML DISP.SYRIN IV PRN (01:17)
[2016-11-20 03:19] LABS: BASOPHILS % (AUTO) 0.5 % (0.0-2.0); EOSINOPHILS # (AUTO) 0.2 /CMM (0.0-0.7); EOSINOPHILS % (AUTO) 4.4 % (0.0-6.0); HEMATOCRIT 40 % (33-45); HEMOGLOBIN 13.5 g/dL (11.5-14.8); LYMPHOCYTES # (AUTO) 1.7 /CMM (0.8-4.8); MEAN CORPUSCULAR HEMOGLOBIN 33 PG (26.0-33.0); MEAN CORPUSCULAR HGB CONC 34 g/dl (31.0-36.0); MEAN CORPUSCULAR VOLUME 98 fL (82-100); MONOCYTES # (AUTO) 0.4 /CMM (0.1-1.30); MONOCYTES % (AUTO) 7.3 % (2.0-12.0); NEUTROPHILS % (AUTO) 55.8 % (43.0-81.0); PLATELET COUNT (AUTO) 68 /CMM (150-450); RDW COEFFICIENT OF VARIATION 13.5 (11.5-15.0); RED BLOOD CELL COUNT(AUTO) 4.09 MIL/uL (4.0-5.2); WHITE BLOOD COUNT (AUTO) 5.4 K/uL (4.3-11.0)
[2016-11-20 03:37] LABS: CALCIUM, SERUM 8.4 mg/dL (8.5-10.1); CREATININE 1.4 mg/dL (0.6-1.3); MAGNESIUM 1.7 mg/dL (1.8-2.4); PHOSPHORUS 4.1 mg/dL (2.5-4.9); POTASSIUM 4.2 mmol/L (3.5-5.1)
[2016-11-20 03:43] LABS: EOSINOPHILS % (MANUAL) 3 % (0-4); LYMPHOCYTES % (MANUAL) 33 % (16-48); MONOCYTES % (MANUAL) 7 % (0-11.0); NEUTROPHILS % (MANUAL) 57 (42-76)
[2016-11-20] MEDS: ONDANSETRON HCL/PF 4 MG/2 ML VIAL IVP PRN (03:55)
--- NOTE | 2016-11-20 05:12 | NUR ---
RN NOTE ZOSYN NOT GIVEN BECAUSE LAST DOSE WAS AT 0030 AND IT WOULD BE TOO CLOSE. ZOSYN IS Q8H
--- NOTE | 2016-11-20 06:00 | NUR ---
DROP WIRE HANGER NOTES PATIENT STILL WITH C/O FEELING N/V. PER PATIENT SHE CAN'T KEEP ANYTHING DOWN AND ZOFRAN ONLY WORKS FOR HER FOR A COUPLE HOURS. NOTED WITH MG LEVEL OF 1.7. DR. SPRING PAGED. WILL CONTINUE TO MONITOR.
--- NOTE | 2016-11-20 06:09 | NUR ---
ROLLER LEVELER OPERATOR NOTES INFORMED DR. SANDOVAL REGARDING LACTIC ACID RESULT AND MAGNESIUM RESULT. ALSO INFORMED REGARDING PATIENTS COMPLAINT OF STILL FEELING NAUSEATED AND PactSHERLYN WORKS ONLY FOR A COUPLE HOURS. NEW ORDERS RECEIVED FOR REGLAN 10MG Q8 PRN, AND 2GM OF MAGNESIUM. NOTED, PRIMARY NURSE INFORMED.
[2016-11-20] MEDS ORDERED: METOCLOPRAMIDE HCL 10 MG/2 ML VIAL ONE (06:11)
[2016-11-20] MEDS ORDERED: Magnesium 1GM/D5W 100ML PREMIX 100 ML IV ONE (06:12)
[2016-11-20] MEDS ORDERED: METOCLOPRAMIDE HCL 10 MG/2 ML VIAL IV PRN (06:30)
[2016-11-20] MEDS ORDERED: Magnesium 1GM/D5W 100ML PREMIX PIGGYBACK IV ONE (06:30)
[2016-11-20] MEDS: Magnesium 1GM/D5W 100ML PREMIX 100 ML IV SCH ×2 (06:52→08:30)
--- NOTE | 2016-11-20 07:00 | NUR ---
RN NOTES RECEIVED PT ON BED, RESPIRATION EVEN AND UNLABORED, ON 2L 02 N/C FOR COMFORT, ON TELE SR IN 80'S, PT C/O ANXIETY AND PT STATED TAKES XANAX 2 MG TWICE A DAY AT HOME , DR BAEZ PAGED BY NIGHT RN, WAITING FOR CALL BACK , L FA AND R AC IV SITES CDI, SR UP x3, CALL LIGHT WITHIN EASY REACH, CONTINUITY TO MONITOR PT CLOSELY AND FOLLOW MDS ORDER
[2016-11-20] MEDS: BLOOD SUGAR DIAGNOSTIC 1 EACH STRIP VI SCH ×4 (07:11→21:41)
--- NOTE | 2016-11-20 07:51 | NUR ---
RN CLOSING NOTE PT HAD SLIGHT ANXIETY AT END OF SHIFT. SPOKE WITH DR BAEZ AND RECEIVED ORDERS FOR 1MG ATIVAN IV ONE TIME DOSE AND 10MG PO REGLAN TID. READBACK ORDERS PERFORMED. ENDORSED TO AM RN FOR CONTINUITY OF CARE.
[2016-11-20] MEDS ORDERED: ALPRAZOLAM 1 MG TABLET PO PRN (08:00)
[2016-11-20] MEDS ORDERED: LORAZEPAM INJ 2 MG/ML VIAL IV PRN (08:00)
[2016-11-20] MEDS: SUCRALFATE 1 G TABLET PO SCH (08:31)
[2016-11-20] MEDS: AMLODIPINE BESYLATE 2.5 MG TABLET PO SCH (08:31)
[2016-11-20] MEDS: PANTOPRAZOLE 40 MG TABLET.DR PO SCH (08:31)
[2016-11-20] MEDS: METOCLOPRAMIDE HCL 10 MG TABLET PO SCH ×3 (08:34→17:39)
[2016-11-20] MEDS ORDERED: FUROSEMIDE 40 MG TABLET PO SCH (09:00)
[2016-11-20] MEDS: FLUTICASONE/VILANTEROL 1 EACH BLST.W.DEV IH SCH (09:00)
--- NOTE | 2016-11-20 09:00 | NUR ---
RN NOTES PT MEDICATED PER MD FOR ANXIETY, PT RESTING WELL , STATED FEELS BETTER , CONTINUE TO MONITOR .
[2016-11-20] MEDS: CARVEDILOL 6.25 MG TABLET PO SCH ×2 (10:25→21:00)
[2016-11-20 10:43] LABS: ALBUMIN 2.6 g/dL (3.4-5.0); BILIRUBIN,DIRECT 0.3 mg/dL (0.0-0.2); TOTAL PROTEIN, SERUM 6.8 g/dL (6.4-8.2)
--- NOTE | 2016-11-20 12:00 | NUR ---
RN NOTES VSS STABLE , RESPIRATION EVEN AND UNLABORED, MARY ANY DISTRESS AT THIS TIME .
[2016-11-20] MEDS: PIPERACILLIN /TAZOBACTAM 2.25 G in IV D5W 50 ML IV SCH ×2 (12:04→17:41)
[2016-11-20] MEDS: INSULIN REGULAR, HUMAN 100 UNIT/ML 3 ML VIAL SQ PRN (12:05)
--- NOTE | 2016-11-20 18:22 | NUR ---
RN NOTES VSS STABLE , NO DISTRESS NOTED, SR UP x3, CALL LIGHT WITHIN EASY REACH, TOLERATING CLEAR LIQUID DIET WELL, NO SIGNIFICANT CHANGES NOTED ON THIS SHIFT .
[2016-11-20 18:23] LABS: APPEARANCE,URINE CLEAR (CLEAR); BILIRUBIN,URINE NEGATIVE (NEGATIVE); BLOOD, URINE 2+ Ery/uL (NEGATIVE); COLOR,URINE YELLOW (YELLOW); KETONES,URINE NEGATIVE (NEGATIVE); LEUKOCYTE ESTERASE ,URINE NEGATIVE (NEGATIVE); NITRITE, URINE NEGATIVE (NEGATIVE); PH,URINE 5.5 (5.0-8.0); PROTEIN,URINE 2+ mg/dl (NEGATIVE); UGLUCOSE NEGATIVE (NEGATIVE); UROBILINOGEN,URINE 0.2 EU/dL (0.2)
[2016-11-20 18:36] LABS: BACTERIA,URINE None seen /HPF (None Seen); SQUAMOUS EPITHELIAL CELL,UR Few /HPF (None Seen); WBC,URINE 0-2 /HPF (0-3)
--- NOTE | 2016-11-20 19:20 | NUR ---
RN INITIAL NOTE RECEIVED PT IN NO ACUTE DISTRESS IN BED. PT IS A/O X 4 AND ABLE TO MAKE NEEDS KNOWN. PT IS ON RA AND TOLERATING WELL WITH O2 SAT @ 98%. PT IS ON TELE WITH SR ON THE MONITOR. PT NOT C/O ANY SOB DIFFICULTY BREATHING OR PAIN AT THIS TIME. WILL CONTINUE TO MONITOR. PT NOT C/O ANY NAUSEA OR VOMITING CURRENTLY. PT HAS LFA 22G THAT IS CLEAN DRY INTACT AND PATENT WITH NS @ TKO. PT HAS RAC 18G THAT IS CLEAN DRY INTACT AND PATENT WITH SALINE FLUSH. BED IN LOW LOCK POSITION WITH RIALS UP X 2 WITH CALL LIGHT WITHIN REACH. ALL NEEDS MET ALL ORDERS CARRIED OUT. WILL CONTINUE TO MONITOR FOR ANY CHANGES IN CONDITION.
[2016-11-20] MEDS: GABAPENTIN 300 MG CAPSULE PO SCH (21:38)
[2016-11-20] MEDS: INSULIN DETEMIR 100 UNIT/ML CARTRIDGE SQ SCH (21:41)
[2016-11-20] MEDS ORDERED: ROSUVASTATIN CALCIUM 10 MG PO SCH (22:00)
[2016-11-21] VITALS (7 sets, daily range): BP systolic 96–132; BP diastolic 67–77
[2016-11-21] MEDS: PIPERACILLIN /TAZOBACTAM 2.25 G in IV D5W 50 ML IV SCH ×5 (00:57→23:28)
[2016-11-21] MEDS ORDERED: HYDROMORPHONE INJ 2 MG/ML DISP.SYRIN ONE (04:23)
--- NOTE | 2016-11-21 04:25 | NUR ---
RN NOTE OMNICELL CURRENTLY OUT OF 1MG DILAUDID IV. CHARGE NURSE OMERO PULLED 2MG DILAUDID IV BY OVERRIDING ON OMNICELL.
[2016-11-21] MEDS: ONDANSETRON HCL/PF 4 MG/2 ML VIAL IVP PRN (04:31)
[2016-11-21] MEDS: HYDROMORPHONE 1 MG/1 ML DISP.SYRIN IV PRN (04:32)
--- NOTE | 2016-11-21 06:25 | NUR ---
RN CLOSING NOTE PT REMAINS IN NO ACUTE DISTRESS IN BED. PT DID NOT HAVE ANY SIGNIFICANT CHANGE IN CONDITION DURING SHIFT. ALL NEEDS MET, ALL ORDERS CARRIED OUT. WILL ENDORSE CARE TO AM RN FOR CONTINUITY OF CARE.
[2016-11-21 06:39] LABS: CALCIUM, SERUM 8.5 mg/dL (8.5-10.1); CREATININE 1.7 mg/dL (0.6-1.3); POTASSIUM 4.1 mmol/L (3.5-5.1)
[2016-11-21] MEDS: BLOOD SUGAR DIAGNOSTIC 1 EACH STRIP VI SCH ×4 (06:39→22:20)
[2016-11-21 06:59] LABS: BASOPHILS % (AUTO) 0.4 % (0.0-2.0); EOSINOPHILS # (AUTO) 0.2 /CMM (0.0-0.7); EOSINOPHILS % (AUTO) 4.5 % (0.0-6.0); HEMATOCRIT 40 % (33-45); HEMOGLOBIN 13.5 g/dL (11.5-14.8); LYMPHOCYTES # (AUTO) 1.4 /CMM (0.8-4.8); MEAN CORPUSCULAR HEMOGLOBIN 33 PG (26.0-33.0); MEAN CORPUSCULAR HGB CONC 34 g/dl (31.0-36.0); MEAN CORPUSCULAR VOLUME 98 fL (82-100); MONOCYTES # (AUTO) 0.4 /CMM (0.1-1.30); MONOCYTES % (AUTO) 7.8 % (2.0-12.0); NEUTROPHILS # (AUTO) 2.9 /CMM (1.8-8.9); NEUTROPHILS % (AUTO) 59.3 % (43.0-81.0); RDW COEFFICIENT OF VARIATION 13.4 (11.5-15.0); WHITE BLOOD COUNT (AUTO) 4.9 K/uL (4.3-11.0)
[2016-11-21 07:04] LABS: PLATELET COUNT (AUTO) 36 /CMM (150-450)
[2016-11-21 07:29] LABS: BILIRUBIN,DIRECT 0.4 mg/dL (0.0-0.2); PHOSPHORUS 4.2 mg/dL (2.5-4.9)
[2016-11-21 07:30] LABS: ALBUMIN 2.4 g/dL (3.4-5.0); MAGNESIUM 2.1 mg/dL (1.8-2.4); TOTAL PROTEIN, SERUM 6.5 g/dL (6.4-8.2)
[2016-11-21] MEDS: CARVEDILOL 6.25 MG TABLET PO SCH ×2 (08:32→21:08)
[2016-11-21] MEDS: PANTOPRAZOLE 40 MG TABLET.DR PO SCH (08:32)
[2016-11-21] MEDS: SUCRALFATE 1 G TABLET PO SCH (08:32)
[2016-11-21] MEDS: METOCLOPRAMIDE HCL 10 MG TABLET PO SCH ×3 (08:33→17:33)
[2016-11-21] MEDS: AMLODIPINE BESYLATE 2.5 MG TABLET PO SCH (08:33)
[2016-11-21] MEDS: FLUTICASONE/VILANTEROL 1 EACH BLST.W.DEV IH SCH (08:34)
[2016-11-21] MEDS: IV NS 0.9% 1,000 ML IV PRN ×3 (08:40→21:06)
[2016-11-21 09:14] LABS: EOSINOPHILS % (MANUAL) 3 % (0-4); LYMPHOCYTES % (MANUAL) 19 % (16-48); MONOCYTES % (MANUAL) 6 % (0-11.0); NEUTROPHILS % (MANUAL) 72 (42-76)
[2016-11-21] MEDS: FEBUXOSTAT 40 MG PO SCH (13:06)
--- NOTE | 2016-11-21 20:00 | NUR ---
SECURITIES TELLER NOTES RECEIVED PTS ON BED AWAKE ALERT AND RESPONSIVE , AMBULATORY , ON TELE SR ON THE MONITOR , NO SOB NO DISTRESS , NO COMPLAIN OF PAIN AT THIS TIME . V/S STABLE AFEBRILE ,ALL DUE MEDS GIVEN ORDERED. ALL NEEDS ATTENDED TOO CALL LIGHT WITHIN REACH KEPT PTS CLEAN DRY AND COMFORTABLE .
[2016-11-21] MEDS: HYDROMORPHONE INJ 2 MG/ML DISP.SYRIN IV PRN (20:24)
[2016-11-21] MEDS: GABAPENTIN 300 MG CAPSULE PO SCH (21:09)
[2016-11-21] MEDS: ATORVASTATIN 10 MG TABLET PO SCH (21:13)
[2016-11-21] MEDS ORDERED: ATORVASTATIN 10 MG TABLET PO SCH (22:00)
--- NOTE | 2016-11-21 22:00 | NUR ---
WING SCORER NOTES BLOOD SUGAR FOR 10PM IS 119 MG/DL NO COVERAGE GIVEN FOR SLIDING SCALE BUT LEVEMIR 20 UNITS SQ GIVEN ORDERED. PTS ON PO DIET, OFFER SNACK , WILL CHECK BS AGAIN AT 730AM
[2016-11-21] MEDS: INSULIN DETEMIR 100 UNIT/ML CARTRIDGE SQ SCH (22:19)
[2016-11-21] MEDS: *INSULIN REGULAR(HUMULIN R)HUM 100 UNIT/ML VIAL SQ PRN (22:20)
[2016-11-22] VITALS: BP 105/49
[2016-11-22] MEDS: IV NS 0.9% 1,000 ML IV PRN (02:43)
[2016-11-22 04:00] VITALS: BP 126/74
[2016-11-22] MEDS: PIPERACILLIN /TAZOBACTAM 2.25 G in IV D5W 50 ML IV SCH (05:59)
[2016-11-22] MEDS: HYDROMORPHONE INJ 2 MG/ML DISP.SYRIN IV PRN (06:18)
[2016-11-22] MEDS: ONDANSETRON HCL/PF 4 MG/2 ML VIAL IVP PRN ×3 (06:19→20:14)
[2016-11-22 06:37] LABS: BASOPHILS % (AUTO) 0.7 % (0.0-2.0); EOSINOPHILS # (AUTO) 0.3 /CMM (0.0-0.7); EOSINOPHILS % (AUTO) 8.3 % (0.0-6.0); HEMATOCRIT 38 % (33-45); HEMOGLOBIN 12.9 g/dL (11.5-14.8); LYMPHOCYTES # (AUTO) 1.1 /CMM (0.8-4.8); LYMPHOCYTES % (AUTO) 31.8 % (20.0-44.0); MEAN CORPUSCULAR HEMOGLOBIN 33 PG (26.0-33.0); MEAN CORPUSCULAR HGB CONC 34 g/dl (31.0-36.0); MEAN CORPUSCULAR VOLUME 98 fL (82-100); MONOCYTES # (AUTO) 0.4 /CMM (0.1-1.30); MONOCYTES % (AUTO) 10.2 % (2.0-12.0); NEUTROPHILS # (AUTO) 1.7 /CMM (1.8-8.9); RDW COEFFICIENT OF VARIATION 13.3 (11.5-15.0); RED BLOOD CELL COUNT(AUTO) 3.92 MIL/uL (4.0-5.2); WHITE BLOOD COUNT (AUTO) 3.5 K/uL (4.3-11.0)
[2016-11-22 06:46] LABS: APPEARANCE,URINE CLEAR (CLEAR); BILIRUBIN,URINE NEGATIVE (NEGATIVE); BLOOD, URINE TRACE-INTA Ery/uL (NEGATIVE); COLOR,URINE YELLOW (YELLOW); KETONES,URINE NEGATIVE (NEGATIVE); LEUKOCYTE ESTERASE ,URINE NEGATIVE (NEGATIVE); NITRITE, URINE NEGATIVE (NEGATIVE); PH,URINE 5.5 (5.0-8.0); PROTEIN,URINE NEGATIVE (NEGATIVE); UGLUCOSE NEGATIVE (NEGATIVE)
[2016-11-22 06:54] LABS: BACTERIA,URINE Rare /HPF (None Seen); SQUAMOUS EPITHELIAL CELL,UR 0-2 /HPF (None Seen); WBC,URINE 0-2 /HPF (0-3)
[2016-11-22 06:58] LABS: ALBUMIN 2.4 g/dL (3.4-5.0); BILIRUBIN,TOTAL 0.6 mg/dL (0.2-1.0); CALCIUM, SERUM 7.8 mg/dL (8.5-10.1); CREATININE 1.5 mg/dL (0.6-1.3); MAGNESIUM 1.7 mg/dL (1.8-2.4); PHOSPHORUS 2.8 mg/dL (2.5-4.9); POTASSIUM 3.7 mmol/L (3.5-5.1); TOTAL PROTEIN, SERUM 6.5 g/dL (6.4-8.2)
[2016-11-22 06:59] LABS: CREATININE, URINE 25.3 MG/DL (30.0-125.0); URINE TOTAL PROTEIN 24.6 mg/dL (0-11.9)
--- NOTE | 2016-11-22 07:06 | NUR ---
technician telecommunication systems notes pts in bed awake and responsive v/s astable afebrile no significant change noted ,will endorse to rn day shift for continuity of care.
--- NOTE | 2016-11-22 07:30 | NUR ---
RN NOTES RECEIVED PATIENT IN BED ALERT, AWAKE, ORIENTED X3 WITH BREATHING NORMAL, EVEN AND UNLABORED. NO SOB NOTED. NO ACUTE DISTRESS NOTED. ON ROOM AIR, SATURATING WELL. NO ACUTE DISTRESS NOTED. IV IS PATENT AND INTACT, NO INFILTRATION NOTED. BOWEL SOUND PRESENT. PULSES PRESENT. KEPT CLEAN, DRY AND COMFORTABLE. ALL NEEDS ATTENDED. SAFETY MEASURE OBSERVED. CALL LIGHT WITH IN REACH. WILL CONT TO MONITOR.
[2016-11-22 07:44] LABS: PLATELET COUNT (AUTO) 45 /CMM (150-450)
[2016-11-22] MEDS ORDERED: Magnesium 1GM/D5W 100ML PREMIX 100 ML IV SCH ×3 (07:45→09:37)
--- NOTE | 2016-11-22 07:45 | NUR ---
RN NOTES RELAYED PLATELETS RESULTS TO DR BAEZ WITH NNO. WILL CONT TO MONITOR.
[2016-11-22 07:54] LABS: BAND % (MANUAL) 2 % (0.0-5.0); EOSINOPHILS % (MANUAL) 7 % (0-4); LYMPHOCYTES % (MANUAL) 30 % (16-48); MONOCYTES % (MANUAL) 6 % (0-11.0); NEUTROPHILS % (MANUAL) 55 (42-76)
[2016-11-22 08:00] VITALS: BP 124/67
[2016-11-22] MEDS: FEBUXOSTAT 40 MG PO SCH (08:15)
[2016-11-22] MEDS: PANTOPRAZOLE 40 MG TABLET.DR PO SCH (08:15)
[2016-11-22] MEDS: METOCLOPRAMIDE HCL 10 MG TABLET PO SCH ×3 (08:15→17:13)
[2016-11-22] MEDS: BLOOD SUGAR DIAGNOSTIC 1 EACH STRIP VI SCH ×4 (08:18→21:31)
[2016-11-22] MEDS: AMLODIPINE BESYLATE 2.5 MG TABLET PO SCH (08:19)
[2016-11-22] MEDS: CARVEDILOL 6.25 MG TABLET PO SCH ×2 (08:19→20:16)
[2016-11-22] MEDS: FLUTICASONE/VILANTEROL 1 EACH BLST.W.DEV IH SCH (09:11)
[2016-11-22 09:15] LABS: EOSINOPHIL,URINE None Seen
[2016-11-22] MEDS: SUCRALFATE 1 G TABLET PO SCH (09:45)
[2016-11-22 16:00] VITALS: BP 121/75
--- NOTE | 2016-11-22 16:34 | NUR ---
RN NOTES PER DR BAEZ NO D/C TODAY, AWAIT FOR GI CONSULT. PATIENT MADE AWARE BY DR BAEZ.
--- NOTE | 2016-11-22 18:56 | NUR ---
RN NOTES PATIENT ENDORSED TO NEXT SHIFT IN STABLE CONDITION WITH BREATHING NORMAL, EVEN AND UNLABORED. NO SOB NOTED. NO ACUTE DISTRESS NOTED. KEPT CLEAN, DRY AND COMFORTABLE. ALL NEEDS ATTENDED. SAFETY MEASURE OBSERVED. CALL LIGHT WITH IN REACH. WILL CONT TO MONITOR.
[2016-11-22 20:00] VITALS: BP 124/69
[2016-11-22] MEDS: ZOLPIDEM TARTRATE 5 MG TABLET PO PRN ×2 (20:15→21:30)
[2016-11-22] MEDS: LORAZEPAM 1 MG TABLET PO PRN (20:15)
--- NOTE | 2016-11-22 20:23 | NUR ---
RN NOTES RECEIVED PATIENT SLEEPING WITH NO DISTRESS NOTED, WOKE UP AND COMPLAINED OF NAUSEA AND ANXIOUSNESSS. GAVE ZOFRAN 4MG AND ATIVAN 1.5MG, WITH RELIEF. ALERT AND ORIENTED. AMBULATING TO THE BATHROOM. COMPLAINED OF PAIN BUT DOES NOT WANT TO TAKE NORCO. WANTS SLEEPING PILLS. GAVE AMBIEN 5MG, WITH HELP. KEPT CLEAN AND DRY. WILL CONTINUE TO MONITOR.
[2016-11-22] MEDS: ATORVASTATIN 10 MG TABLET PO SCH (21:04)
[2016-11-22] MEDS: GABAPENTIN 300 MG CAPSULE PO SCH (21:05)
[2016-11-22] MEDS: INSULIN DETEMIR 100 UNIT/ML CARTRIDGE SQ SCH (21:12)
[2016-11-22] MEDS: *INSULIN REGULAR(HUMULIN R)HUM 100 UNIT/ML VIAL SQ PRN (21:31)
[2016-11-23 04:00] VITALS: BP 128/62
[2016-11-23] MEDS: ONDANSETRON HCL/PF 4 MG/2 ML VIAL IVP PRN ×4 (05:56→20:42)
--- NOTE | 2016-11-23 06:42 | NUR ---
rn closing notes AWAKE, IN BED. FEELS NAUSEAUS, ADMINISTERED ZOFRAN 4MG, WITH RELIEF. ALERT AND ORIENTED. VERBALLY ABLE TO COMMUNICATE NEED. REMAINS AFEBRILE. VITAL SIGNS WNL. KEPT CLEAN AND DRY. WILL ENDORSE TO AM SHIFT FOR CONTINUITY OF CARE
[2016-11-23 06:47] LABS: ALBUMIN 2.2 g/dL (3.4-5.0); BILIRUBIN,TOTAL 0.6 mg/dL (0.2-1.0); CALCIUM, SERUM 8.2 mg/dL (8.5-10.1); CREATININE 1.2 mg/dL (0.6-1.3); MAGNESIUM 1.9 mg/dL (1.8-2.4); PHOSPHORUS 2.3 mg/dL (2.5-4.9)
[2016-11-23 07:03] LABS: BASOPHILS % (AUTO) 0.6 % (0.0-2.0); EOSINOPHILS # (AUTO) 0.2 /CMM (0.0-0.7); EOSINOPHILS % (AUTO) 5.6 % (0.0-6.0); HEMATOCRIT 36 % (33-45); LYMPHOCYTES # (AUTO) 1.4 /CMM (0.8-4.8); LYMPHOCYTES % (AUTO) 33.4 % (20.0-44.0); MEAN CORPUSCULAR HEMOGLOBIN 33 PG (26.0-33.0); MEAN CORPUSCULAR HGB CONC 34 g/dl (31.0-36.0); MEAN CORPUSCULAR VOLUME 97 fL (82-100); MONOCYTES # (AUTO) 0.3 /CMM (0.1-1.30); MONOCYTES % (AUTO) 7.9 % (2.0-12.0); NEUTROPHILS # (AUTO) 2.1 /CMM (1.8-8.9); NEUTROPHILS % (AUTO) 52.5 % (43.0-81.0); RDW COEFFICIENT OF VARIATION 13.3 (11.5-15.0); RED BLOOD CELL COUNT(AUTO) 3.66 MIL/uL (4.0-5.2); WHITE BLOOD COUNT (AUTO) 4.1 K/uL (4.3-11.0)
[2016-11-23 07:09] LABS: PLATELET COUNT (AUTO) 40 /CMM (150-450)
[2016-11-23] MEDS: BLOOD SUGAR DIAGNOSTIC 1 EACH STRIP VI SCH ×4 (07:30→21:09)
--- NOTE | 2016-11-23 07:34 | NUR ---
RN NOTES RECEIVED PT FROM UPHOLSTERY HANDLER IN STABLE CONDITION. A&OX3 ON ROOM AIR NO SOB OR DISTRESS NOTED. LFA 22 GAUGE IV SITE DRY AND INTACT NO IVF RUNNING. CALL LIGHT WITHIN REACH, SIDE RAILS UPX3, BED LOCKED AND IN LOWEST POSITION, BED ALARM ON WILL CONT TO MONITOR
[2016-11-23 08:00] VITALS: BP 134/73
--- NOTE | 2016-11-23 08:00 | NUR ---
RN NOTES MILK ROUTE DELIVERER RN RECEIVED CRITICAL LAB RESULT PLATELET OF 40. DR BAEZ NOTIFIED NO FURTHER ORDERS.
[2016-11-23 08:22] LABS: EOSINOPHILS % (MANUAL) 6 % (0-4); LYMPHOCYTES % (MANUAL) 24 % (16-48); MONOCYTES % (MANUAL) 7 % (0-11.0); NEUTROPHILS % (MANUAL) 63 (42-76)
[2016-11-23] MEDS: SUCRALFATE 1 G TABLET PO SCH (08:26)
[2016-11-23] MEDS: METOCLOPRAMIDE HCL 10 MG TABLET PO SCH ×3 (08:27→16:03)
[2016-11-23] MEDS: AMLODIPINE BESYLATE 2.5 MG TABLET PO SCH (08:27)
[2016-11-23] MEDS: PANTOPRAZOLE 40 MG TABLET.DR PO SCH (08:27)
[2016-11-23] MEDS: CARVEDILOL 6.25 MG TABLET PO SCH ×2 (08:27→20:55)
[2016-11-23] MEDS: FLUTICASONE/VILANTEROL 1 EACH BLST.W.DEV IH SCH (08:28)
[2016-11-23] MEDS: FEBUXOSTAT 40 MG PO SCH (08:28)
--- NOTE | 2016-11-23 10:45 | NUR ---
RN NOTES DR SMITH AT BEDSIDE SPOKE WITH PT, ORDERED EGD FOR TOMORROW. CONSENT OBTAINED.
[2016-11-23] MEDS: INSULIN REGULAR, HUMAN 100 UNIT/ML 3 ML VIAL SQ PRN ×2 (12:05→21:12)
--- NOTE | 2016-11-23 13:20 | NUR ---
RN NOTES PT IV SITE PAINFUL AND SWOLLEN SO TAKEN OUT. CHARGE NURSE MARTÍN TRIED TO START IV, UNSUCCESSFUL. MIDLINE ORDERED PLACED BY ROHIT RIVAS.
[2016-11-23] MEDS: HYDROCODONE/APAP 5/325MG 1 EACH TABLET PO PRN (14:42)
[2016-11-23 16:00] VITALS: BP 149/86
--- NOTE | 2016-11-23 18:45 | NUR ---
RN NOTES PT RESTING COMFORTABLY IN BED, NPO AFTER MIDNIGHT SIGN POSTED ON DOOR. ALL NEEDS MET, NO SIGNIFICANT CHANGES THROUGHOUT MY SHIFT. CONSENT FOR EGD IN CHART. MIDLINE DRESSING DRY AND INTACT. CALL LIGHT WITHIN REACH, SIDE RAILS UPX3, WILL ENDORSE TO ONCOMING SHIFT.
[2016-11-23 20:00] VITALS: BP 116/71
[2016-11-23] MEDS: LORAZEPAM 1 MG TABLET PO PRN (21:13)
[2016-11-23] MEDS: GABAPENTIN 300 MG CAPSULE PO SCH (21:14)
[2016-11-23] MEDS: ATORVASTATIN 10 MG TABLET PO SCH (21:14)
[2016-11-23] MEDS: ZOLPIDEM TARTRATE 5 MG TABLET PO PRN (21:14)
[2016-11-23] MEDS: INSULIN DETEMIR 100 UNIT/ML CARTRIDGE SQ SCH (22:00)
--- NOTE | 2016-11-23 22:00 | NUR ---
RN NOTES IN BED, AWAKE NO COMPLAINT OF PAIN, NO DISTRESS NOTED. BREATHING EVEN AND UNLABORED. ON ROOM AIR WITH O2SAT OF 96-98%. COMPLAINED OF NAUSEA AND ANXIETY. GAVE ATIVAN 1.5MG AND ZOFRAN 4MG WITH HELP. NPO AFTER MIDNIGHT WITH PROCEDURE EGD IN AM. INSTRUCTED PATIENT NOT EAT ANYTHING AFTER MIDNIGHT, PATIENT VERBALIZES UNDERSTANDING. COMPLAINED OF SLEEPLESSNESS, AMBIEN GIVEN FOR SLEEP WITH HELP. KEPT CLEAN AND DRY AND COMFORTABLE. WILL CONTINUE TO MONITOR.
[2016-11-24 04:00] VITALS: BP 105/48
--- NOTE | 2016-11-24 06:16 | NUR ---
RN NOTES AWAKE IN BED, TALKING OVER THE PHONE. NO DISTRESS NOTED. READY FOR PROCEDURE EGD. CONSENT IN THE CHART. NO COMPLAINT OF PAIN. ALERT AND ORIENTED. NPO MIDNIGHT. WILL ENDORSE TO AM SHIFT FOR CONTINUITY OF CARE
[2016-11-24 06:35] LABS: BASOPHILS % (AUTO) 0.3 % (0.0-2.0); EOSINOPHILS # (AUTO) 0.2 /CMM (0.0-0.7); EOSINOPHILS % (AUTO) 6.4 % (0.0-6.0); HEMATOCRIT 36 % (33-45); HEMOGLOBIN 12.3 g/dL (11.5-14.8); LYMPHOCYTES # (AUTO) 1.2 /CMM (0.8-4.8); LYMPHOCYTES % (AUTO) 31.5 % (20.0-44.0); MEAN CORPUSCULAR HEMOGLOBIN 33 PG (26.0-33.0); MEAN CORPUSCULAR HGB CONC 35 g/dl (31.0-36.0); MEAN CORPUSCULAR VOLUME 96 fL (82-100); MONOCYTES # (AUTO) 0.3 /CMM (0.1-1.30); MONOCYTES % (AUTO) 7.3 % (2.0-12.0); NEUTROPHILS # (AUTO) 2.1 /CMM (1.8-8.9); NEUTROPHILS % (AUTO) 54.5 % (43.0-81.0); RDW COEFFICIENT OF VARIATION 13.1 (11.5-15.0); RED BLOOD CELL COUNT(AUTO) 3.69 MIL/uL (4.0-5.2); WHITE BLOOD COUNT (AUTO) 3.9 K/uL (4.3-11.0)
[2016-11-24 06:39] LABS: PLATELET COUNT (AUTO) 34 /CMM (150-450)
--- NOTE | 2016-11-24 06:55 | NUR ---
RN NOTES LAB CALLED FOR PLATELET COUNT OF 34 @ 6:45. RELAYED TO DR. CUELLAR WITH NO NEW ORDER.
[2016-11-24 06:56] LABS: CALCIUM, SERUM 8.1 mg/dL (8.5-10.1); CREATININE 1.2 mg/dL (0.6-1.3); MAGNESIUM 1.5 mg/dL (1.8-2.4); PHOSPHORUS 2.8 mg/dL (2.5-4.9)
[2016-11-24] MEDS: PANTOPRAZOLE 40 MG TABLET.DR PO SCH (07:30)
--- NOTE | 2016-11-24 07:30 | NUR ---
RN NOTES Received pt. in bed.no c/o pain,no s/s of distress,breathing even and unlabored.on NPO status for EGD procedure.pt is aware of this and complies well.i.v cdi and patent.will continue to monitor for changes.
[2016-11-24 08:00] VITALS: BP 146/76
[2016-11-24] MEDS: BLOOD SUGAR DIAGNOSTIC 1 EACH STRIP VI SCH ×4 (08:23→22:17)
[2016-11-24] MEDS: CARVEDILOL 6.25 MG TABLET PO SCH ×2 (09:00→22:26)
[2016-11-24] MEDS: FLUTICASONE/VILANTEROL 1 EACH BLST.W.DEV IH SCH (09:00)
[2016-11-24] MEDS: METOCLOPRAMIDE HCL 10 MG TABLET PO SCH ×3 (09:00→17:00)
[2016-11-24] MEDS: SUCRALFATE 1 G TABLET PO SCH (09:00)
[2016-11-24] MEDS: FEBUXOSTAT 40 MG PO SCH (09:00)
[2016-11-24] MEDS: AMLODIPINE BESYLATE 2.5 MG TABLET PO SCH (09:00)
[2016-11-24] MEDS: LORAZEPAM 1 MG TABLET PO PRN ×2 (10:33→22:15)
[2016-11-24] MEDS: Magnesium 1GM/D5W 100ML PREMIX 100 ML IV SCH ×2 (10:33→11:50)
[2016-11-24] MEDS: ONDANSETRON HCL/PF 4 MG/2 ML VIAL IVP PRN ×2 (10:34→20:27)
[2016-11-24 12:00] VITALS: BP 146/76
[2016-11-24] MEDS: HEPARIN SODIUM, PORCINE 5000 UNITS/1 ML VIAL SQ SCH ×2 (13:05→22:12)
[2016-11-24 16:00] VITALS: BP 151/97
--- NOTE | 2016-11-24 19:05 | NUR ---
MS RN OPENING NOTES RECEIVED REPORT FROM GRIFFIN RIVAS. PATIENT A/A/O X3-4. BREATHING EVEN AND UNLABORED, ON ROOM AIR. DENIES SOB OR DIFFICULTY BREATHING. PULSES PRESENT. SKIN WARM TO TOUCH. BOWEL SOUNDS PRESENT IN ALL QUADRANTS. LEFT UPPER ARM MIDLINE INTACT AND PATENT W/ DRESSING CDI, ON TKO. DENIES ANY PAIN OR DISCOMFORT @ THIS TIME. AMBULATORY W/ BATHROOM PRIVILEGES. SAFETY MEASURES IN PLACE W/ SIDE RAILS UP, BED LOCKED IN LOWEST POSITION, CALL LIGHT WITHIN REACH. WILL CONTINUE TO MONITOR.
[2016-11-24 20:00] VITALS: BP 143/82
[2016-11-24] MEDS: ATORVASTATIN 10 MG TABLET PO SCH (22:11)
[2016-11-24] MEDS: INSULIN DETEMIR 100 UNIT/ML CARTRIDGE SQ SCH (22:13)
[2016-11-24] MEDS: GABAPENTIN 300 MG CAPSULE PO SCH (22:14)
[2016-11-24] MEDS: ZOLPIDEM TARTRATE 5 MG TABLET PO PRN (22:14)
[2016-11-24] MEDS: *INSULIN REGULAR(HUMULIN R)HUM 100 UNIT/ML VIAL SQ PRN (22:14)
[2016-11-24] MEDS ORDERED: HEPARIN SODIUM, PORCINE 5000 UNITS/1 ML VIAL ONE (22:30)
--- NOTE | 2016-11-24 23:56 | NUR ---
RN NOTES PATIENT C/O ITCHING ALL OVER HER BODY AND REQUESTS FOR ANTI-ITCH MEDICINE. CALLED [facility] AND SPOKE W/ DR SPRING. RECEIVED ORDER FOR BENADRYL 25 MG PO Q6H PRN. ORDER CARRIED OUT.
[2016-11-25] VITALS (9 sets, daily range): BP systolic 97–156; BP diastolic 54–84
[2016-11-25] MEDS ORDERED: diphenhydrAMINE HCL 25 MG CAPSULE PO PRN
[2016-11-25] MEDS ORDERED: diphenhydrAMINE HCL 25 MG CAPSULE ONE (00:26)
--- NOTE | 2016-11-25 00:45 | NUR ---
RN NOTES 1ST UNIT OF PLATELETS STARTED. CHECKED AND VERIFIED W/ 2ND RN. NO INITIAL REACTIONS NOTED.
--- NOTE | 2016-11-25 01:56 | NUR ---
RN NOTES 1ST UNIT OF PLATELETS TRANSFUSED. NO ADVERSE REACTIONS NOTED. PATIENT TOLERATED WELL.
--- NOTE | 2016-11-25 03:23 | NUR ---
RN NOTES 2ND UNIT OF PLATELETS STARTED. NO INITIAL REACTIONS NOTED.
[2016-11-25] MEDS: ONDANSETRON HCL/PF 4 MG/2 ML VIAL IVP PRN (05:03)
[2016-11-25] MEDS: HYDROCODONE/APAP 5/325MG 1 EACH TABLET PO PRN (05:03)
[2016-11-25 06:10] LABS: *SPE A/G RATIO 0.9 (0.7-1.7); *SPE ALBUMIN 2.8 g/dL (2.9-4.4); *SPE ALPHA-1-GLOBULIN 0.2 g/dL (0.0-0.4); *SPE ALPHA-2-GLOBULIN 0.4 g/dL (0.4-1.0); *SPE BETA GLOBULIN 0.7 g/dL (0.7-1.3); *SPE GLOBULIN, TOTAL 3.1 g/dL (2.2-3.9); *SPE M-SPIKE Not Observed g/dL (Not Observed); *SPE PROTEIN TOTAL 5.9 g/dL (6.0-8.5); *SPEGAMMA GLOBULIN 1.8 g/dL (0.4-1.8)
[2016-11-25 06:34] LABS: BASOPHILS % (AUTO) 0.2 % (0.0-2.0); EOSINOPHILS % (AUTO) 0.9 % (0.0-6.0); HEMATOCRIT 36 % (33-45); HEMOGLOBIN 12.2 g/dL (11.5-14.8); LYMPHOCYTES # (AUTO) 0.2 /CMM (0.8-4.8); LYMPHOCYTES % (AUTO) 7.2 % (20.0-44.0); MEAN CORPUSCULAR HEMOGLOBIN 33 PG (26.0-33.0); MEAN CORPUSCULAR HGB CONC 34 g/dl (31.0-36.0); MEAN CORPUSCULAR VOLUME 97 fL (82-100); MONOCYTES % (AUTO) 0.4 % (2.0-12.0); NEUTROPHILS # (AUTO) 2.8 /CMM (1.8-8.9); NEUTROPHILS % (AUTO) 91.3 % (43.0-81.0); RDW COEFFICIENT OF VARIATION 13.1 (11.5-15.0); RED BLOOD CELL COUNT(AUTO) 3.71 MIL/uL (4.0-5.2); WHITE BLOOD COUNT (AUTO) 3.1 K/uL (4.3-11.0)
[2016-11-25 06:50] LABS: PLATELET COUNT (AUTO) 31 /CMM (150-450)
[2016-11-25 06:53] LABS: CALCIUM, SERUM 8.1 mg/dL (8.5-10.1); CREATININE 1.3 mg/dL (0.6-1.3); MAGNESIUM 1.4 mg/dL (1.8-2.4); PHOSPHORUS 2.2 mg/dL (2.5-4.9); POTASSIUM 3.6 mmol/L (3.5-5.1)
[2016-11-25] MEDS: FEBUXOSTAT 40 MG PO SCH (08:12)
[2016-11-25] MEDS: SUCRALFATE 1 G TABLET PO SCH (08:13)
[2016-11-25] MEDS: CARVEDILOL 6.25 MG TABLET PO SCH (08:13)
[2016-11-25] MEDS: AMLODIPINE BESYLATE 2.5 MG TABLET PO SCH (08:13)
[2016-11-25] MEDS: METOCLOPRAMIDE HCL 10 MG TABLET PO SCH ×3 (08:13→16:41)
[2016-11-25] MEDS: PANTOPRAZOLE 40 MG TABLET.DR PO SCH (08:13)
[2016-11-25] MEDS: BLOOD SUGAR DIAGNOSTIC 1 EACH STRIP VI SCH ×2 (08:14→12:39)
[2016-11-25] MEDS: FLUTICASONE/VILANTEROL 1 EACH BLST.W.DEV IH SCH (08:14)
[2016-11-25] MEDS: HEPARIN SODIUM, PORCINE 5000 UNITS/1 ML VIAL SQ SCH (08:22)
[2016-11-25 08:34] LABS: BAND % (MANUAL) 5 % (0.0-5.0); EOSINOPHILS % (MANUAL) 1 % (0-4); LYMPHOCYTES % (MANUAL) 5 % (16-48); MONOCYTES % (MANUAL) 3 % (0-11.0); NEUTROPHILS % (MANUAL) 86 (42-76)
[2016-11-25] MEDS: Magnesium 1GM/D5W 100ML PREMIX 100 ML IV SCH ×3 (11:31→13:47)
[2016-11-25] MEDS ORDERED: IV NS 0.9% 250 ML BAG IV PRN (12:00)
[2016-11-25] MEDS ORDERED: POTASSIUM PHOSPHATE MM 15 MMOL in IV D5W 250 ML IV SCH (13:00)
[2016-11-25] MEDS ORDERED: Magnesium 1GM/D5W 100ML PREMIX 100 ML IV SCH (13:00)
[2016-11-25] MEDS: INSULIN REGULAR, HUMAN 100 UNIT/ML 3 ML VIAL SQ PRN ×2 (13:31→17:25)
[2016-11-25] MEDS ORDERED: POTASSIUM PHOSPHATE MM 7.5 MMOL in IV D5W 100 ML IV SCH (14:00)
[2016-11-25 14:15] LABS: PTH, INTACT 50 pg/mL (15-65)
--- NOTE | 2016-11-25 18:38 | NUR ---
RN CLOSING NOTE PATIENT DISCHARGED HOME. PAPERWORK COMPLETED AND SIGNED. IV SITE AND ID BAND REMOVED. PATIENT TRANSPORTED [facility]IA WHEELCHAIR TO [facility]
== END 2016-11-25 18:32 | disposition home or self-care (01) | DRG 441 ==
LOC: ER 15:02 → TELE1 17:16 → MEDSG1 11-22 08:36
PROVIDERS: ADMIT Internal Medicine; ATTEND Internal Medicine
PROC: 30233R1 Transfusion of Nonautologous Platelets into Peripheral Vein, Percutaneous Approach (ICD-10-PCS; principal; 2016-11-23)
PROC: 05H633Z Insertion of Infusion Device into Left Subclavian Vein, Percutaneous Approach (ICD-10-PCS; 2016-11-23)
DX: B19.10 Unspecified viral hepatitis B without hepatic coma (principal); N17.0 Acute kidney failure with tubular necrosis; E11.22 Type 2 diabetes mellitus with diabetic chronic kidney disease; D69.6 Thrombocytopenia, unspecified; I13.0 Hypertensive heart and chronic kidney disease with heart failure and stage 1 through stage 4 chronic kidney disease, or unspecified chronic kidney disease; I50.32 Chronic diastolic (congestive) heart failure; E83.42 Hypomagnesemia; R07.9 Chest pain, unspecified; N18.2 Chronic kidney disease, stage 2 (mild); E78.5 Hyperlipidemia, unspecified; E86.9 Volume depletion, unspecified; F41.9 Anxiety disorder, unspecified; I25.10 Atherosclerotic heart disease of native coronary artery without angina pectoris; K21.9 Gastro-esophageal reflux disease without esophagitis; K27.9 Peptic ulcer, site unspecified, unspecified as acute or chronic, without hemorrhage or perforation; K74.60 Unspecified cirrhosis of liver; K57.30 Diverticulosis of large intestine without perforation or abscess without bleeding; Z79.4 Long term (current) use of insulin; Z79.899 Other long term (current) drug therapy; Z83.3 Family history of diabetes mellitus; Z95.1 Presence of aortocoronary bypass graft; Z90.49 Acquired absence of other specified parts of digestive tract; Z88.5 Allergy status to narcotic agent; E66.9 Obesity, unspecified; Z68.31 Body mass index [BMI] 31.0-31.9, adult; B19.20 Unspecified viral hepatitis C without hepatic coma; D73.2 Chronic congestive splenomegaly; I35.8 Other nonrheumatic aortic valve disorders; M77.9 Enthesopathy, unspecified; M48.00 Spinal stenosis, site unspecified; M25.78 Osteophyte, vertebrae
CPT/HCPCS: 36415; 36569; 71010-TC; 71250-TC; 80048-TC; 80053-TC; 80076-TC; 81000-TC; 82550-TC; 82570-TC; 82962-TC; 83605-TC; 83735-TC; 83970; 84100-TC; 84155; 84155-TC; 84165; 84300-TC; 84484-TC; 85025-TC; 85730-TC; 86850-TC; 87081-TC; 88305-TC; 88313-TC; 88342; 93970-TC; A4606; J1170; J1644; J1815; J2060; J2405; J2543; J2765; J3475; J3490; J7030; J7050; J7060; J8597; P9016-BL; P9034-BL; Q0163; Z7610

== ENCOUNTER → 2017-03-20 | Emergency (ER) | payer MEDICARE, OTHER ==
[~2017-03-20] VITALS: Ht 160 cm; Wt 75.7 kg
[~2017-03-20] MED LIST changes: +ALPR2TAB2 PO; -CALC667C6 PO; -CARV3.122 PO; -CEPH-570 PO; -DULO30CA2 PO; -HYDR-552 PO; -LORA1TAB PO; -TEMA30CA PO; -TOPI50TA21 PO; +ZOLP10TA2 PO
[2017-03-20 15:00] VITALS: BP 175/89
[2017-03-20 17:14] LABS: BASOPHILS % (AUTO) 0.7 % (0.0-2.0); EOSINOPHILS # (AUTO) 0.3 /CMM (0.0-0.7); EOSINOPHILS % (AUTO) 5.1 % (0.0-6.0); HEMATOCRIT 38 % (33-45); HEMOGLOBIN 13.3 g/dL (11.5-14.8); LYMPHOCYTES # (AUTO) 1.5 /CMM (0.8-4.8); LYMPHOCYTES % (AUTO) 30.2 % (20.0-44.0); MEAN CORPUSCULAR HEMOGLOBIN 33 PG (26.0-33.0); MEAN CORPUSCULAR HGB CONC 35 g/dl (31.0-36.0); MEAN CORPUSCULAR VOLUME 96 fL (82-100); MONOCYTES # (AUTO) 0.3 /CMM (0.1-1.30); MONOCYTES % (AUTO) 6.9 % (2.0-12.0); NEUTROPHILS # (AUTO) 2.9 /CMM (1.8-8.9); NEUTROPHILS % (AUTO) 57.1 % (43.0-81.0); PLATELET COUNT (AUTO) 55 /CMM (150-450); RDW COEFFICIENT OF VARIATION 12.4 (11.5-15.0); RED BLOOD CELL COUNT(AUTO) 4.01 MIL/uL (4.0-5.2)
[2017-03-20 17:22] LABS: CALCIUM, SERUM 8.5 mg/dL (8.5-10.1); CREATININE 1.3 mg/dL (0.6-1.3); POTASSIUM 4.7 mmol/L (3.5-5.1)
[2017-03-20 17:27] LABS: INR 0.93 (0.87-1.13); PROTHROMBIN TIME 9.7 SECS (9.5-12.7)
[2017-03-20 17:29] LABS: ALBUMIN 2.1 g/dL (3.4-5.0); BILIRUBIN,DIRECT 0.2 mg/dL (0.0-0.2); BILIRUBIN,TOTAL 0.7 mg/dL (0.2-1.0); TOTAL PROTEIN, SERUM 6.7 g/dL (6.4-8.2)
[2017-03-20 18:08] LABS: BAND % (MANUAL) 2 % (0.0-5.0); LYMPHOCYTES % (MANUAL) 24 % (16-48); NEUTROPHILS % (MANUAL) 66 (42-76)
[2017-03-20 18:09] LABS: EOSINOPHILS % (MANUAL) 2 % (0-4); MONOCYTES % (MANUAL) 6 % (0-11.0)
== END | disposition home or self-care (01) ==
LOC: ER 14:41
DX: E88.09 Other disorders of plasma-protein metabolism, not elsewhere classified (principal); R18.8 Other ascites; K72.90 Hepatic failure, unspecified without coma; I11.0 Hypertensive heart disease with heart failure; I50.9 Heart failure, unspecified; E11.9 Type 2 diabetes mellitus without complications; Z90.49 Acquired absence of other specified parts of digestive tract; Z88.6 Allergy status to analgesic agent; Z79.4 Long term (current) use of insulin; Z79.899 Other long term (current) drug therapy
CPT/HCPCS: 36415; 71045; 76700; 80048; 80076; 83690; 85025; 85730; 99285; A4606; Z7610

== ENCOUNTER 2017-08-24 15:33 | Emergency (ER) | payer MEDICARE, OTHER ==
[~2017-08-24] VITALS: Ht 160 cm; Wt 89.4 kg
[~2017-08-24 15:33] MED LIST changes: -AMLO2.5T PO; +AMLO2.5T3 PO
--- NOTE | 2017-08-24 15:58 | NUR ---
PATIENT TO ED DT RIGHT SIDE FLANK PAIN, DIARRHEA, NAUSEA x 3 DAYS. VSS
[2017-08-24] MEDS ORDERED: hydrOXYzine HCL INJ 50 MG/ML VIAL IM ONE (16:00)
[2017-08-24 16:03] LABS: BASOPHILS % (AUTO) 0.6 % (0.0-2.0); HEMATOCRIT 42 % (33-45); HEMOGLOBIN 14.5 g/dL (11.5-14.8); LYMPHOCYTES # (AUTO) 1.7 /CMM (0.8-4.8); LYMPHOCYTES % (AUTO) 33.9 % (20.0-44.0); MEAN CORPUSCULAR HGB CONC 35 g/dl (31.0-36.0); MEAN CORPUSCULAR VOLUME 92 fL (82-100); MONOCYTES # (AUTO) 0.2 /CMM (0.1-1.30); NEUTROPHILS # (AUTO) 2.9 /CMM (1.8-8.9); NEUTROPHILS % (AUTO) 56.5 % (43.0-81.0); PLATELET COUNT (AUTO) 53 /CMM (150-450); RDW COEFFICIENT OF VARIATION 12.3 (11.5-15.0); RED BLOOD CELL COUNT(AUTO) 4.59 MIL/uL (4.0-5.2)
[2017-08-24 16:11] LABS: CALCIUM, SERUM 8.9 mg/dL (8.5-10.1); CREATININE 2.1 mg/dL (0.6-1.3); POTASSIUM 3.4 mmol/L (3.5-5.1)
[2017-08-24 16:15] LABS: INR 0.97 (0.85-1.15)
--- NOTE | 2017-08-24 16:15 | NUR ---
VISTARIL 25 IM - NOT GIVEN- CANCELLED BY NON DESTRUCTIVE EVALUATION MANAGER DUE TO MEDS NOT CARRIED BY YULIYA
[2017-08-24 16:17] LABS: ALBUMIN 2.4 g/dL (3.4-5.0); BILIRUBIN,DIRECT 0.3 mg/dL (0.0-0.2); TOTAL PROTEIN, SERUM 6.7 g/dL (6.4-8.2)
[2017-08-24] MEDS ORDERED: hydrOXYzine 10 MG TABLET ONE (16:39)
[2017-08-24 16:44] LABS: LYMPHOCYTES % (MANUAL) 38 % (16-48); MONOCYTES % (MANUAL) 5 % (0-11.0); NEUTROPHILS % (MANUAL) 57 (42-76)
[2017-08-24] MEDS ORDERED: HYDROMORPHONE INJ 2 MG/ML DISP.SYRIN ONE ×2 (16:53→18:10)
[2017-08-24] MEDS ORDERED: ONDANSETRON HCL/PF 4 MG/2 ML VIAL ONE (16:53)
[2017-08-24] MEDS ORDERED: ONDANSETRON HCL/PF 4 MG/2 ML VIAL IV ONE (17:00)
[2017-08-24] MEDS ORDERED: hydrOXYzine 10 MG TABLET PO ONE (17:00)
[2017-08-24] MEDS ORDERED: HYDROMORPHONE 1 MG/1 ML DISP.SYRIN IV ONE ×2 (17:00→18:00)
[2017-08-24] MEDS ORDERED: IV NS 0.9% 500 ML BAG IV ONE (17:00)
[2017-08-24 17:04] LABS: APPEARANCE,URINE CLEAR (CLEAR); BILIRUBIN,URINE 1+ (NEGATIVE); BLOOD, URINE 3+ Ery/uL (NEGATIVE); COLOR,URINE YELLOW (YELLOW); KETONES,URINE NEGATIVE (NEGATIVE); LEUKOCYTE ESTERASE ,URINE NEGATIVE (NEGATIVE); NITRITE, URINE NEGATIVE (NEGATIVE); PH,URINE 5.5 (5.0-8.0); PROTEIN,URINE 3+ mg/dl (NEGATIVE); UGLUCOSE 2+ mg/dL (NEGATIVE)
[2017-08-24 17:14] LABS: BACTERIA,URINE Moderate /HPF (None Seen); HYALINE CASTS, URINE Few /LPF (None Seen); RBC,URINE 21-50 /HPF (0-2); SQUAMOUS EPITHELIAL CELL,UR Many /HPF (None Seen)
[2017-08-24] MEDS ORDERED: diphenhydrAMINE HCL 50 MG/ML VIAL IV ONE (18:00)
[2017-08-24] MEDS ORDERED: diphenhydrAMINE HCL 50 MG/ML VIAL ONE (18:10)
[2017-08-24] MEDS ORDERED: METOCLOPRAMIDE HCL 10 MG/2 ML VIAL ONE (18:30)
[2017-08-24] MEDS ORDERED: METOCLOPRAMIDE HCL 10 MG/2 ML VIAL IV ONE (18:30)
[2017-08-24] MEDS ORDERED: MAGN400T6 PO (18:35)
[2017-08-24] MEDS ORDERED: ONDA4TAB5 PO (18:35)
[2017-08-24] MEDS ORDERED: PREG75CA PO (18:35)
[2017-08-24] MEDS ORDERED: MULT-213 PO (18:35)
[2017-08-24] MEDS ORDERED: LOSA50TA21 PO (18:35)
[2017-08-24] MEDS ORDERED: URSO500T9 PO (18:35)
[2017-08-24] MEDS ORDERED: TOPI50TA PO (18:35)
[2017-08-24] MEDS ORDERED: OMEP40CA37 PO (18:35)
[2017-08-24] MEDS ORDERED: POTA20TA83 PO (18:35)
[2017-08-24] MEDS ORDERED: TENO25TA PO (18:35)
[2017-08-24] MEDS ORDERED: MECL-102 PO (18:35)
[2017-08-24] MEDS ORDERED: HYDR-3028 PO (18:35)
[2017-08-24] MEDS ORDERED: CLON0.5T12 PO (18:35)
[2017-08-24] MEDS ORDERED: CARV3.122 PO (18:35)
[2017-08-24] MEDS ORDERED: CALC667C6 PO (18:35)
[2017-08-24] MEDS ORDERED: PROC10TA13 PO (18:35)
[2017-08-24] MEDS ORDERED: SPIR50TA5 PO (18:35)
--- NOTE | 2017-08-24 18:55 | NUR ---
REPORT GIVEN TO SILVANA RIVAS FOR CONT OF CARE.
--- NOTE | 2017-08-24 19:03 | NUR ---
CALLED [employer] SCRUFF WORKER WAS PAGED.
--- NOTE | 2017-08-24 19:13 | NUR ---
assumed care. received report from am shift rn shira. pt asleep, no acute distress noted, resp even and unlabored. no acute distress noted, resp even and unlabored. er MEDICATION TECHNICIAN spoke to jackelyn kidd dnp regarding pt admission.
[2017-08-24] MEDS ORDERED: hydrOXYzine HCL INJ 50 MG/ML VIAL IM STA (21:07)
[2017-08-24] MEDS ORDERED: DEXAMETHASONE SOD PHOSPHATE 10 MG/ML VIAL ONE (21:15)
[2017-08-24] MEDS ORDERED: CHOLESTYRAMINE/ASPARTAME 4 G/PKT PACKET PO ONE (21:30)
[2017-08-24] MEDS ORDERED: DEXAMETHASONE SOD PHOSPHATE 4 MG/ML VIAL IM ONE (21:30)
--- NOTE | 2017-08-24 21:38 | NUR ---
IV removed. Catheter intact and site benign. Pressure and 4x4 applied to site. No bleeding noted. Patient discharged to home in stable condition. Written and verbal after care instructions given. Patient verbalizes understanding of instruction. ambulatory with a steady gait noted. pt aaox4 no acute distres noted, resp even and unlabored.
--- NOTE | 2017-08-24 21:38 | NUR ---
pt family members at bedside to take pt home.
[2017-08-24 21:39] VITALS: BP 132/79
== END 2017-08-24 21:39 | disposition home or self-care (01) ==
LOC: ER 15:37 → TELE 19:11 → UNDOADMIN 19:11 → TELE 19:51 → ER 21:39
DX: D69.6 Thrombocytopenia, unspecified (principal); N28.9 Disorder of kidney and ureter, unspecified; R31.9 Hematuria, unspecified; K74.60 Unspecified cirrhosis of liver; I11.0 Hypertensive heart disease with heart failure; I50.9 Heart failure, unspecified; Z95.1 Presence of aortocoronary bypass graft; Z88.6 Allergy status to analgesic agent; Z98.890 Other specified postprocedural states; Z90.49 Acquired absence of other specified parts of digestive tract; Z79.4 Long term (current) use of insulin
CPT/HCPCS: 36415; 71045-TC; 76770-TC; 80048-TC; 80076-TC; 81000-TC; 83690-TC; 84484-TC; 85025-TC; 85730-TC; 87081-TC; 87086-TC; A4606; J1100; J1170; J1200; J2405; J2765; J3410; J7040; Q0177; Z7610

== ENCOUNTER 2018-09-20 13:19 | Emergency (ER) | payer MEDICARE, OTHER ==
[~2018-09-20] VITALS: Ht 160 cm; Wt 102.3 kg
[~2018-09-20 13:19] MED LIST changes: -ALPR2TAB2 PO; -AMLO2.5T3 PO; +AMLO2.5T4 PO; +CALC667C6 PO; +CARV3.122 PO; +CLON0.1T PO; +CLON0.5T12 PO; +COLC0.6T67 PO; +DOCU250C89 PO; -ESOM40CA PO; -FLUT16SP BNOSTRILS; +HYDR-4077 PO; +LOSA50TA39 PO; +MAGN400T6 PO; +MECL-102 PO; +MULT-213 PO; +OMEP40CA37 PO; +ONDA4TAB5 PO; +POTA20TA83 PO; +PREG75CA PO; +PROC10TA13 PO; -ROSU10TA PO; +ROSU10TA2 PO; +SPIR50TA5 PO; -SUCR1TAB PO; +TENO25TA PO; +TOPI50TA PO; +TRAM50TA2 PO; +URSO500T10 PO
--- NOTE | 2018-09-20 13:30 | NUR ---
BIBSELF FOR ABD PAIN RAD TO BACK x 2 DAYS, ALSO C/O NAUSEA, GENERALIZED ITCH AND RASHES. PATIENT A/OX4, BREATHING EVEN AND UNLABORED, NO SOB NOTED, NO EPISODE OF VOMITING AT THIS TIME. NEEDS ATTENDED. ATTACHED TO THE MONITOR.
[2018-09-20] MEDS ORDERED: FAMOTIDINE/PF INJ 20 MG/2 ML VIAL IV ONE (14:00)
[2018-09-20] MEDS ORDERED: IV NS 0.9% 1,000 ML BAG IV ONE ×2 (14:00→15:00)
[2018-09-20] MEDS ORDERED: ONDANSETRON HCL/PF 4 MG/2 ML VIAL IVP ONE (14:00)
[2018-09-20 14:40] LABS: BASOPHILS % (AUTO) 0.6 % (0.0-2.0); EOSINOPHILS % (AUTO) 2.3 % (0.0-6.0); HEMATOCRIT 34 % (33-45); HEMOGLOBIN 11.6 g/dL (11.5-14.8); LYMPHOCYTES % (AUTO) 23.4 % (20.0-44.0); MEAN CORPUSCULAR HGB CONC 34 g/dl (31.0-36.0); MEAN CORPUSCULAR VOLUME 94 fL (82-100); MONOCYTES # (AUTO) 0.3 /CMM (0.1-1.30); MONOCYTES % (AUTO) 6.4 % (2.0-12.0); NEUTROPHILS # (AUTO) 2.9 /CMM (1.8-8.9); NEUTROPHILS % (AUTO) 67.3 % (43.0-81.0); RED BLOOD CELL COUNT(AUTO) 3.64 MIL/uL (4.0-5.2); WHITE BLOOD COUNT (AUTO) 4.2 K/uL (4.3-11.0)
[2018-09-20 14:41] LABS: PLATELET COUNT (AUTO) 39 /CMM (150-450)
[2018-09-20 14:47] LABS: ALANINE AMINOTRANSFERASE 17 U/L (12-78); ALBUMIN 2.3 g/dL (3.4-5.0); ALKALINE PHOSPHATASE 233 U/L (46-116); ASPARTATE AMINOTRANSFERASE 8 U/L (15-37); BILIRUBIN,DIRECT 0.1 mg/dL (0.0-0.2); BILIRUBIN,TOTAL 0.3 mg/dL (0.2-1.0); CALCIUM, SERUM 8.5 mg/dL (8.5-10.1); CARBON DIOXIDE 24 mmol/L (21-32); CHLORIDE 105 mmol/L (98-107); CREATININE 2.5 mg/dL (0.6-1.3); LIPASE 418 U/L (73-393); POTASSIUM 4.5 mmol/L (3.5-5.1); SODIUM SERUM 136 mmol/L (136-145); UREA NITROGEN, BLOOD 37 mg/dL (7-18)
[2018-09-20 14:52] LABS: GLUCOSE 420 mg/dL (74-106)
[2018-09-20 14:56] LABS: BILIRUBIN,URINE Negative (NEGATIVE); BLOOD, URINE Moderate Ery/uL (NEGATIVE); COLOR,URINE Yellow (YELLOW); KETONES,URINE Negative (NEGATIVE); LEUKOCYTE ESTERASE ,URINE Negative (NEGATIVE); NITRITE, URINE Negative (NEGATIVE); PH,URINE 6.5 (5.0-8.0); PROTEIN,URINE >=300 mg/dl (NEGATIVE); UGLUCOSE 500 MG/DL mg/dL (NEGATIVE); UROBILINOGEN,URINE 0.2 EU/dL (0.2)
[2018-09-20 14:58] LABS: APPEARANCE,URINE Hazy (CLEAR)
[2018-09-20] MEDS ORDERED: INSULIN REGULAR, HUMAN 100 UNIT/ML 10 ML VIAL IV ONE (15:00)
[2018-09-20 15:02] LABS: BACTERIA,URINE Rare /HPF (None Seen); RBC,URINE 20-50 /HPF (0-2); SQUAMOUS EPITHELIAL CELL,UR Few /HPF (None Seen); WBC,URINE 0-3 /HPF (0-3)
[2018-09-20 15:15] LABS: EOSINOPHILS % (MANUAL) 3 % (0-4); LYMPHOCYTES % (MANUAL) 23 % (16-48); MONOCYTES % (MANUAL) 6 % (0-11.0); NEUTROPHILS % (MANUAL) 68 (42-76)
[2018-09-20] MEDS ORDERED: INSULIN REGULAR, HUMAN 100 UNIT/ML 10 ML VIAL ONE (15:17)
[2018-09-20] MEDS ORDERED: INSULIN REGULAR, HUMAN 100 UNIT/ML 10 ML VIAL SQ ONE (15:30)
--- NOTE | 2018-09-20 15:37 | NUR ---
PATIENT WENT TO CT. UNABLE TO INSERT A PERIPHERAL IV, ATTEMPTED MULTIPLE TIMES, INFORMED DR. SYLVESTER.
[2018-09-20] MEDS ORDERED: LIDOCAINE VISCOUS 2% UD 15 ML UDC ONE (16:29)
[2018-09-20] MEDS ORDERED: MAG HYDROX/AL HYDROX/SIMETH 30 ML UDC ONE (16:29)
[2018-09-20] MEDS ORDERED: MAG HYDROX/AL HYDROX/SIMETH 30 ML UDC PO ONE (16:30)
[2018-09-20] MEDS ORDERED: LIDOCAINE VISCOUS 2% UD 15 ML UDC MM ONE (16:30)
[2018-09-20] MEDS ORDERED: FAMOTIDINE (20 MG) 20 MG TABLET PO ONE (16:30)
[2018-09-20] MEDS ORDERED: FAMOTIDINE (20 MG) 20 MG TABLET ONE (16:30)
--- NOTE | 2018-09-20 16:38 | NUR ---
Patient discharged to home in stable condition. Written and verbal after care instructions given. Patient verbalizes understanding of instruction.
[2018-09-20 16:40] VITALS: BP 145/78
[2018-09-27] MEDS ORDERED: METO5TAB87 PO (14:18)
== END 2018-09-20 16:47 | disposition home or self-care (01) ==
LOC: ER 13:19
DX: R10.13 Epigastric pain (principal); R10.11 Right upper quadrant pain; I11.0 Hypertensive heart disease with heart failure; I50.9 Heart failure, unspecified; E66.9 Obesity, unspecified; E86.0 Dehydration; E11.65 Type 2 diabetes mellitus with hyperglycemia; Z90.49 Acquired absence of other specified parts of digestive tract; Z98.890 Other specified postprocedural states; Z95.1 Presence of aortocoronary bypass graft; Z88.5 Allergy status to narcotic agent; Z79.4 Long term (current) use of insulin
CPT/HCPCS: 36415; 71045; 74176; 80048; 80076; 81001; 82962 ×2; 83690; 84443; 84484; 85025; 93005; 96372; 99284; J1815; 81000-TC

== ENCOUNTER 2018-09-22 12:57 | Inpatient (IN) | payer MEDICARE, OTHER ==
[~2018-09-22] VITALS: Ht 160 cm; Wt 91.6 kg
--- NOTE | 2018-09-22 12:57 | NUR ---
CAME IN FOR PERSISTENT ABDOMINAL PAIN,SEEN HERE 2 DAYS AGO RX AFFORDED NO RELIEF. TO ER BED 4, HOOKED TO MONITOR, CHANGED TO GOWN, PROVIDED W WARM BLANKET, PT AOX4 , NOT IN DISTRESS, AWAITING MD NANCE
--- NOTE | 2018-09-22 14:10 | NUR ---
TOLU GORMAN AT BEDSIDE
[2018-09-22] MEDS ORDERED: ONDANSETRON HCL/PF 4 MG/2 ML VIAL ONE (14:20)
[2018-09-22] MEDS ORDERED: FAMOTIDINE/PF INJ 20 MG/2 ML VIAL IV ONE ×2 (14:20→14:30)
[2018-09-22 14:24] LABS: BASOPHILS % (AUTO) 0.4 % (0.0-2.0); EOSINOPHILS % (AUTO) 2.5 % (0.0-6.0); HEMATOCRIT 37 % (33-45); HEMOGLOBIN 12.6 g/dL (11.5-14.8); LYMPHOCYTES # (AUTO) 1.3 /CMM (0.8-4.8); LYMPHOCYTES % (AUTO) 25.2 % (20.0-44.0); MEAN CORPUSCULAR HGB CONC 34 g/dl (31.0-36.0); MEAN CORPUSCULAR VOLUME 94 fL (82-100); MONOCYTES # (AUTO) 0.3 /CMM (0.1-1.30); MONOCYTES % (AUTO) 6.2 % (2.0-12.0); NEUTROPHILS # (AUTO) 3.3 /CMM (1.8-8.9); NEUTROPHILS % (AUTO) 65.7 % (43.0-81.0); RED BLOOD CELL COUNT(AUTO) 3.89 MIL/uL (4.0-5.2)
[2018-09-22 14:25] LABS: APPEARANCE,URINE Clear (CLEAR); BILIRUBIN,URINE Negative (NEGATIVE); BLOOD, URINE Small Ery/uL (NEGATIVE); CALCIUM, SERUM 8.2 mg/dL (8.5-10.1); COLOR,URINE Yellow (YELLOW); CREATININE 2.5 mg/dL (0.6-1.3); KETONES,URINE Negative (NEGATIVE); LEUKOCYTE ESTERASE ,URINE Negative (NEGATIVE); NITRITE, URINE Negative (NEGATIVE); PLATELET COUNT (AUTO) 44 /CMM (150-450); POTASSIUM 4.3 mmol/L (3.5-5.1); PROTEIN,URINE >=300 mg/dl (NEGATIVE); UGLUCOSE 500 MG/DL mg/dL (NEGATIVE); UROBILINOGEN,URINE 0.2 EU/dL (0.2)
[2018-09-22] MEDS ORDERED: ONDANSETRON HCL/PF 4 MG/2 ML VIAL IVP ONE (14:30)
[2018-09-22] MEDS ORDERED: DICYCLOMINE HCL INJ 20 MG/2 ML AMPUL IM ONE ×2 (14:30→14:44)
[2018-09-22] MEDS ORDERED: IV NS 0.9% 1,000 ML BAG IV ONE (14:30)
[2018-09-22 14:32] LABS: ALBUMIN 2.5 g/dL (3.4-5.0); BILIRUBIN,DIRECT 0.1 mg/dL (0.0-0.2); BILIRUBIN,TOTAL 0.5 mg/dL (0.2-1.0); TOTAL PROTEIN, SERUM 6.3 g/dL (6.4-8.2)
[2018-09-22 14:46] LABS: BACTERIA,URINE Rare /HPF (None Seen); SQUAMOUS EPITHELIAL CELL,UR Rare /HPF (None Seen)
[2018-09-22 14:47] LABS: WBC,URINE 0-2 /HPF (0-3); YEAST,URINE Rare /HPF (None Seen)
[2018-09-22 15:16] LABS: EOSINOPHILS % (MANUAL) 1 % (0-4); LYMPHOCYTES % (MANUAL) 21 % (16-48); MONOCYTES % (MANUAL) 1 % (0-11.0); NEUTROPHILS % (MANUAL) 77 (42-76)
[2018-09-22] MEDS ORDERED: HYDROMORPHONE INJ 0.5 MG/0.5 ML SYRINGE IV ONE (16:30)
[2018-09-22] MEDS ORDERED: HYDROMORPHONE 1 MG/1 ML DISP.SYRIN ONE (16:32)
[2018-09-22] MEDS ORDERED: hydrOXYzine 10 MG TABLET ONE (16:47)
--- NOTE | 2018-09-22 16:49 | NUR ---
BP OF 185/124, MADE TOLU CARTER AWARE, RECEIVED VERBAL ORDER OF HYDRALAZINE 50MG PO. CALLED PHARMACY FOR DOSE.
[2018-09-22] MEDS ORDERED: hydrALAZINE HCL 50 MG TABLET PO ONE (17:00)
[2018-09-22] MEDS ORDERED: hydrOXYzine 10 MG TABLET PO ONE (17:00)
[2018-09-22] MEDS ORDERED: hydrALAZINE HCL 10 MG TABLET PO ONE (17:00)
[2018-09-22] MEDS ORDERED: OXYC-133 PO (17:15)
[2018-09-22] MEDS ORDERED: NITR0.4T48 SL (17:15)
[2018-09-22] MEDS ORDERED: ALBU18HF2 IH (17:24)
[2018-09-22] MEDS ORDERED: BETA45CR3 TP (17:40)
[2018-09-22] MEDS ORDERED: FLUT16SP16 NS (17:40)
[2018-09-22] MEDS ORDERED: DULO30CA2 PO (17:40)
[2018-09-22] MEDS ORDERED: CHOL500052 PO (17:40)
[2018-09-22] MEDS ORDERED: HYDR-3028 PO (17:40)
[2018-09-22] MEDS ORDERED: ESCI20TA PO (17:40)
[2018-09-22] MEDS ORDERED: SUVO20TA PO (17:40)
[2018-09-22] MEDS ORDERED: MULT1TAB73 PO (17:40)
[2018-09-22] MEDS ORDERED: ISOS30TA6 PO (17:40)
[2018-09-22] MEDS ORDERED: diphenhydrAMINE HCL 25 MG CAPSULE ONE (18:47)
--- NOTE | 2018-09-22 18:47 | NUR ---
PT C/O GENERALIZED ITSCHING, RECEIVED VERBAL ORDER OF BENADRYL 25MG PO FROM TOLU GORMAN, CARRIED OUT Addendum: 09/22/18 at 1852 by JOSE ANTONIO PT C/O GENERALIZED ITCHING, RECEIVED VERBAL ORDER OF BENADRYL 25MG PO FROM TOLU GORMAN, CARRIED OUT
--- NOTE | 2018-09-22 18:53 | NUR ---
BP OF 188/134 AND PT VOMITING, REPORTED TO TOLU GORMAN, RECEIVED ORDER OF REGLAN 10MG IVPB, AND CLONIDINE 0.1MG PO. CARRIED OUT
[2018-09-22] MEDS ORDERED: CLONIDINE HCL 0.1 MG TABLET ONE (18:55)
[2018-09-22] MEDS ORDERED: METOCLOPRAMIDE HCL 10 MG/2 ML VIAL ONE (18:55)
[2018-09-22] MEDS ORDERED: METOCLOPRAMIDE HCL 10 MG/2 ML VIAL IV ONE (19:00)
[2018-09-22] MEDS ORDERED: diphenhydrAMINE HCL ELIX 25 MG/10 ML UDC PO ONE (19:00)
[2018-09-22] MEDS ORDERED: CLONIDINE HCL 0.1 MG TABLET PO ONE (19:00)
--- NOTE | 2018-09-22 19:29 | NUR ---
REPORT GIVEN TO PAIGE RIVAS FOR NILSA
[2018-09-22] MEDS ORDERED: MAGNESIUM HYDROXIDE 30 ML UDC PO PRN (19:30)
[2018-09-22] MEDS ORDERED: ACETAMINOPHEN 325 MG TABLET PO PRN (19:30)
[2018-09-22] MEDS ORDERED: ENOXAPARIN SODIUM 40 MG/0.4 ML DISP.SYRIN SQ SCH (19:30)
[2018-09-22] MEDS ORDERED: MORPHINE SULFATE INJ 2 MG/ML DISP.SYRIN IV PRN (19:30)
[2018-09-22] MEDS ORDERED: Z GUARD REMEDY 2 OZ OINT TP PRN (19:30)
[2018-09-22] MEDS ORDERED: MAG HYDROX/AL HYDROX/SIMETH 30 ML UDC PO PRN (19:30)
--- NOTE | 2018-09-22 20:06 | NUR ---
REPORT GIVEN TO LEONARDO ON 2ND FLOOR
[2018-09-22 20:12] VITALS: BP 101/56
--- NOTE | 2018-09-22 20:12 | NUR ---
PT WAS TRANSFERRED TO 204 IN STABLE CONDITION .
[2018-09-22] MEDS: FAMOTIDINE/PF INJ 20 MG/2 ML VIAL IV SCH (20:37)
[2018-09-22] MEDS: ONDANSETRON HCL/PF 4 MG/2 ML VIAL IVP PRN (20:37)
[2018-09-22] MEDS: HYDROMORPHONE 1 MG/1 ML DISP.SYRIN IV PRN (20:37)
[2018-09-22] MEDS: IV NS 0.9% 1,000 ML IV PRN (20:52)
[2018-09-22] MEDS: DIPHENHYDRAMINE HCL 12.5 MG/5 ML UDC PO PRN (21:12)
[2018-09-23] MEDS: HYDROMORPHONE 1 MG/1 ML DISP.SYRIN IV PRN ×3 (01:52→21:10)
[2018-09-23] MEDS: ONDANSETRON HCL/PF 4 MG/2 ML VIAL IVP PRN ×4 (02:07→22:08)
--- NOTE | 2018-09-23 06:52 | NUR ---
MS RN NOTES AWAKE & RESPONSIVE. NOT IN ANY DISTRESS. NO SOB NOTED. DENIES ANY PAIN OR DISCOMFORT AT THIS TIME. WITH IVF INFUSING WELL. MONITORED ACCORDINGLY. CALL LIGHT WITHIN REACH. BED IN LOWEST POSITION. SR UP X 2 FOR SAFETY. WILL ENDORSE TO NEXT SHIFT.
[2018-09-23 07:01] LABS: BASOPHILS % (AUTO) 0.3 % (0.0-2.0); EOSINOPHILS % (AUTO) 1.5 % (0.0-6.0); HEMATOCRIT 35 % (33-45); HEMOGLOBIN 11.6 g/dL (11.5-14.8); LYMPHOCYTES # (AUTO) 1.1 /CMM (0.8-4.8); MEAN CORPUSCULAR HGB CONC 34 g/dl (31.0-36.0); MEAN CORPUSCULAR VOLUME 95 fL (82-100); MONOCYTES # (AUTO) 0.3 /CMM (0.1-1.30); MONOCYTES % (AUTO) 5.9 % (2.0-12.0); NEUTROPHILS % (AUTO) 72.3 % (43.0-81.0); RED BLOOD CELL COUNT(AUTO) 3.65 MIL/uL (4.0-5.2); WHITE BLOOD COUNT (AUTO) 5.5 K/uL (4.3-11.0)
[2018-09-23 07:10] LABS: PLATELET COUNT (AUTO) 40 /CMM (150-450)
[2018-09-23 07:24] LABS: ALBUMIN 2.3 g/dL (3.4-5.0); BILIRUBIN,DIRECT 0.1 mg/dL (0.0-0.2); BILIRUBIN,TOTAL 0.5 mg/dL (0.2-1.0); CALCIUM, SERUM 8.1 mg/dL (8.5-10.1); CREATININE 2.8 mg/dL (0.6-1.3); MAGNESIUM 1.3 mg/dL (1.8-2.4); PHOSPHORUS 5.2 mg/dL (2.5-4.9); POTASSIUM 4.7 mmol/L (3.5-5.1); TOTAL PROTEIN, SERUM 5.9 g/dL (6.4-8.2)
[2018-09-23 07:27] LABS: THYROID STIMULATING HORMONE 3.892 uIU/mL (0.358-3.74)
[2018-09-23 08:00] VITALS: BP 149/90
--- NOTE | 2018-09-23 08:00 | NUR ---
MS RN NOTES AWAKE & RESPONSIVE. NOT IN ANY DISTRESS. NO SOB NOTED. C/O ABD PAIN AND NAUSEA-ADMINISTERED DILAUDID 0.5 MG IV AND ZOFRAN IV. WILL MONITOR.WITH IVF NS AT 50 ML/HR INFUSING WELL. MONITORED ACCORDINGLY. CALL LIGHT WITHIN REACH. BED IN LOWEST POSITION. SR UP X 2 FOR SAFETY.
[2018-09-23] MEDS: FAMOTIDINE/PF INJ 20 MG/2 ML VIAL IV SCH ×2 (08:48→18:09)
[2018-09-23] MEDS: FLUCONAZOLE (100 MG) 100 MG TABLET PO SCH (08:49)
[2018-09-23] MEDS ORDERED: PANTOPRAZOLE 40 MG VIAL IV SCH (09:00)
[2018-09-23 09:13] LABS: BAND % (MANUAL) 2 % (0.0-5.0); LYMPHOCYTES % (MANUAL) 19 % (16-48); MONOCYTES % (MANUAL) 7 % (0-11.0); NEUTROPHILS % (MANUAL) 72 (42-76)
--- NOTE | 2018-09-23 14:00 | NUR ---
PT WAS SEEN BY BRYANT MCKEON AND ADALID,RN AND MADE AWARE OF PT'S LOW PLATELETS OF 40 AND C/O ITCHINESS IN THE BODY.ALSO INFORMED THEM OF PT'S LOW MG 1.3 WELL.NOTIFIED PHARMACY OF LOW MG 1.3 AND SPOKE TO LORE,PHARMACIST WHO STATED TO HOLD MG REPLACEMENT SINCE PT'S CREATININE LEVEL IS 2.8.
[2018-09-23] MEDS ORDERED: diphenhydrAMINE HCL/ZINC ACET CREAM 28.3 GM TUBE TP PRN (14:30)
[2018-09-23] MEDS: DIPHENHYDRAMINE HCL 12.5 MG/5 ML UDC PO PRN (14:51)
--- NOTE | 2018-09-23 15:01 | NUR ---
TOOK BENADRYL PO AND OPENED FROM THE MED ROOM CASSETTE BY ACCIDENT BUT HELD THE ADMINISTRATION DUE TO NPO STATUS.
[2018-09-23 16:00] VITALS: BP 134/84
[2018-09-23 16:59] LABS: APPEARANCE,URINE Clear (CLEAR); BILIRUBIN,URINE Negative (NEGATIVE); BLOOD, URINE Moderate Ery/uL (NEGATIVE); COLOR,URINE Yellow (YELLOW); KETONES,URINE Negative (NEGATIVE); LEUKOCYTE ESTERASE ,URINE Negative (NEGATIVE); NITRITE, URINE Negative (NEGATIVE); PH,URINE 5.5 (5.0-8.0); PROTEIN,URINE >=300 mg/dl (NEGATIVE); UGLUCOSE 250 MG/DL mg/dL (NEGATIVE); UROBILINOGEN,URINE 0.2 EU/dL (0.2)
[2018-09-23 17:08] LABS: CREATININE, URINE 131.2 MG/DL (30.0-125.0); URINE TOTAL PROTEIN 1793.1 mg/dL (0-11.9)
[2018-09-23 17:36] LABS: BACTERIA,URINE Rare /HPF (None Seen); SQUAMOUS EPITHELIAL CELL,UR Few /HPF (None Seen); WBC,URINE 0-2 /HPF (0-3)
[2018-09-23] MEDS: IV NS 0.9% 1,000 ML IV PRN ×2 (18:05→18:10)
--- NOTE | 2018-09-23 19:00 | NUR ---
RESTING IN BED WITH ONGOING IVF NS INFUSING WELL.DENIES ANY PAIN OR NAUSEA/VOMITING DURING THE SHIFT.WILL MONITOR.CALL LIGHT PLACED WITHIN REACH.
--- NOTE | 2018-09-23 19:30 | NUR ---
MS/RN OPENING NOTES PT AWAKE. RESTING COMFORTABLY IN BED. A/OX3. ON ROOM AIR, BREATHING EVEN AND UNLABORED. DENIES SOB BUT NOTES 5/10 RIGHT SIDE ABDOMINAL PAIN AT THIS TIME, BUT WILLING TO WAIT A WHILE FOR PAIN MEDS. IV TO RAC PATENT AND INTACT RUNNING IVF ORDERED. BED IN LOW/LOCKED POSITION WITH CALL LIGHT IN REACH. HOB ELEVATED. BILAT. UPPER SIDE RAILS IN PLACE. BED IN LOW/LOCKED POSITION WITH CALL LIGHT IN REACH. WILL CONTINUE TO MONITOR
[2018-09-23 20:00] VITALS: BP 154/82
[2018-09-23 20:15] VITALS: BP 154/82
[2018-09-23 20:28] LABS: EOSINOPHIL,URINE None Seen
--- NOTE | 2018-09-23 21:13 | NUR ---
MS/RN NOTES PT C/O RIGHT ABDOMINAL PAIN 10/23. REQUESTING IV PAIN MEDICATION. ADMINISTERED ORDERED. PLACED ON 2L SUPPLEMENTAL O2. HOB ELEVATED. NO ADDITIONAL NEEDS EXPRESSED AT THIS TIME. WILL CONTINUE TO MONITOR
[2018-09-24] MEDS: HYDROMORPHONE 1 MG/1 ML DISP.SYRIN IV PRN ×4 (02:55→20:08)
[2018-09-24] MEDS: ONDANSETRON HCL/PF 4 MG/2 ML VIAL IVP PRN ×2 (04:47→10:48)
--- NOTE | 2018-09-24 04:51 | NUR ---
MS/RN NOTES PT WITH X1 EPISODE OF EMESIS AND DRY HEAVING. ADMINISTERED PRN ZOFRAN ORDERED. NO OTHER NEEDS EXPRESSED AT THIS TIME.
[2018-09-24 06:24] LABS: BASOPHILS % (AUTO) 0.5 % (0.0-2.0); EOSINOPHILS % (AUTO) 1.7 % (0.0-6.0); HEMATOCRIT 33 % (33-45); HEMOGLOBIN 10.9 g/dL (11.5-14.8); LYMPHOCYTES # (AUTO) 1.5 /CMM (0.8-4.8); LYMPHOCYTES % (AUTO) 30.7 % (20.0-44.0); MEAN CORPUSCULAR HGB CONC 34 g/dl (31.0-36.0); MEAN CORPUSCULAR VOLUME 95 fL (82-100); MONOCYTES # (AUTO) 0.3 /CMM (0.1-1.30); MONOCYTES % (AUTO) 7.1 % (2.0-12.0); NEUTROPHILS # (AUTO) 2.9 /CMM (1.8-8.9); RED BLOOD CELL COUNT(AUTO) 3.43 MIL/uL (4.0-5.2); WHITE BLOOD COUNT (AUTO) 4.8 K/uL (4.3-11.0)
[2018-09-24 06:40] LABS: ALBUMIN 2.2 g/dL (3.4-5.0); BILIRUBIN,TOTAL 0.6 mg/dL (0.2-1.0); CALCIUM, SERUM 8.1 mg/dL (8.5-10.1); CREATININE 2.9 mg/dL (0.6-1.3); MAGNESIUM 1.4 mg/dL (1.8-2.4); PHOSPHORUS 4.8 mg/dL (2.5-4.9); POTASSIUM 4.7 mmol/L (3.5-5.1); TOTAL PROTEIN, SERUM 5.5 g/dL (6.4-8.2)
[2018-09-24 06:51] LABS: PLATELET COUNT (AUTO) 36 /CMM (150-450)
--- NOTE | 2018-09-24 06:51 | NUR ---
MS/RN CLOSING NOTES PT ASLEEP, RESPONSIVE TO NAME. A/OX3. REMAINS ON 2L SUPPLEMENTAL O2, BREATHING EVEN AND UNLABORED. DENIES SOB AND PAIN AT THIS TIME. NO SIGNIFICANT CHANGES OVERNIGHT. PAIN MANAGED WITH IV DILAUDID. X1 EPISODE OF SMALL AMOUNT OF EMESIS PER PT. IV TO RAC PATENT AND INTACT RUNNING IVF ORDERED. ALL NEEDS MET. BED IN LOW/LOCKED POSITION WITH CALL LIGHT IN REACH. HOB ELEVATED. REMAINS NPO. BILAT. UPPER SIDE RAILS IN PLACE. BED IN LOW/LOCKED POSITION WITH CALL LIGHT IN REACH. WILL ENDORSE TO DAY SHIFT RN NILSA.
--- NOTE | 2018-09-24 07:31 | NUR ---
MS/RN OPENING NOTE PATIENT IN BED IN STABLE CONDITION. A/O X 4. NO SIGNS OF ACUTE DISTRESS. NO COMPLAIN OF PAIN OR DISCOMFORT. ALL NEEDS ATTENDED TO. CALL LIGHT WITHIN REACH. WILL CONTINUE TO MONITOR TO ENSURE SAFETY.
[2018-09-24 08:00] VITALS: BP 170/89
[2018-09-24] MEDS: FLUCONAZOLE (100 MG) 100 MG TABLET PO SCH (08:21)
[2018-09-24] MEDS: FAMOTIDINE/PF INJ 20 MG/2 ML VIAL IV SCH ×2 (08:21→16:08)
[2018-09-24 09:33] VITALS: BP 155/74
[2018-09-24 09:50] LABS: LYMPHOCYTES % (MANUAL) 37 % (16-48); MONOCYTES % (MANUAL) 3 % (0-11.0); NEUTROPHILS % (MANUAL) 59 (42-76)
[2018-09-24 09:51] LABS: BAND % (MANUAL) 1 % (0.0-5.0)
--- NOTE | 2018-09-24 10:00 | NUR ---
MS/RN PATIENT SEEN AND EXAMINED BY DR CASIANO.
--- NOTE | 2018-09-24 10:24 | NUR ---
MS/RN SPOKE WITH BRYANT MCKEON AND NOTIFIED, PER ANOOP PHARMACIST UNABLE TO PUT MG REPLACEMENT ORDER SECONDARY TO PATIENT BUN/CR IS 43/2.9H AND MG IS 1.4L. PER BRYANT MCKEON ORDERS OKAY TO GIVE MG 4GM IVPB.
[2018-09-24] MEDS: Magnesium 1GM/D5W 100ML PREMIX 100 ML IV SCH ×4 (10:46→13:46)
[2018-09-24] MEDS: IV NS 0.9% 1,000 ML IV PRN (14:00)
--- NOTE | 2018-09-24 18:10 | NUR ---
MS/RN CLOSING NOTE PATIENT IN BED IN STABLE CONDITION. A/O X 4. NO SIGNS OF ACUTE DISTRESS. NO COMPLAIN OF PAIN OR DISCOMFORT. NPO STATUS SECONDARY TO ACUTE PANCREATITIS. ALL NEEDS ATTENDED TO. CALL LIGHT WITHIN REACH. WILL ENDORSE TO NEXT SHIFT FOR CONTINUITY OF CARE.
[2018-09-24] MEDS ORDERED: DEXTROSE 50%-WATER 50 ML DISP.SYRIN IV PRN (18:30)
--- NOTE | 2018-09-24 19:30 | NUR ---
MS/RN OPENING NOTES PT RECEIVED AWAKE, RESTING COMFORTABLY IN BED. ON 2L O2 VIA NC, BREATHING EVEN AND UNLABORED. DENIES SOB, NOTES 09/22 ABDOMINAL PAIN, REQUESTING IV PAIN MEDS WHEN DUE. IV TO RAC PATENT AND INTACT RUNNING IVF ORDERED. HOB ELEVATED. BED IN LOW/LOCKED POSITION WITH CALL LIGHT IN REACH. BILAT. UPPER SIDE RAILS IN PLACE. WILL CONTINUE TO MONITOR
[2018-09-24] MEDS: ONDANSETRON HCL/PF 4 MG/2 ML VIAL IVP SCH (19:57)
[2018-09-24 20:00] VITALS: BP 162/90
--- NOTE | 2018-09-24 20:19 | NUR ---
MS/RN NOTES PT C/O NAUSEA AND 8/10 ABDOMINAL PAIN TO RIGHT SIDE. ADMINISTERED SCHEDULED ZOFRAN AND PRN DILAUDID ORDERED.
[2018-09-24] MEDS: INSULIN REGULAR, HUMAN 100 UNIT/ML 3 ML VIAL SQ PRN (21:40)
[2018-09-24] MEDS: BLOOD SUGAR DIAGNOSTIC 1 EACH STRIP IN SCH (21:40)
[2018-09-25] MEDS: ONDANSETRON HCL/PF 4 MG/2 ML VIAL IVP SCH ×2 (01:50→07:04)
[2018-09-25] MEDS: HYDROMORPHONE 1 MG/1 ML DISP.SYRIN IV PRN ×4 (01:57→21:11)
--- NOTE | 2018-09-25 02:01 | NUR ---
MS/RN NOTES PT C/O 10/23 RIGHT SIDE ABDOMINAL PAIN. ADMINISTERED PRN DILAUDID AND GAVE SCHEDULED IV ZOFRAN. NO NEEDS EXPRESSED AT THIS TIME. NO EPISODES OF VOMITING DURING SHIFT. WILL CONTINUE TO MONITOR
[2018-09-25] MEDS: INSULIN REGULAR, HUMAN 100 UNIT/ML 3 ML VIAL SQ PRN ×4 (06:37→21:26)
[2018-09-25] MEDS: BLOOD SUGAR DIAGNOSTIC 1 EACH STRIP IN SCH ×4 (06:37→21:25)
[2018-09-25 06:40] LABS: BASOPHILS % (AUTO) 0.3 % (0.0-2.0); EOSINOPHILS % (AUTO) 1.7 % (0.0-6.0); HEMATOCRIT 32 % (33-45); LYMPHOCYTES # (AUTO) 1.5 /CMM (0.8-4.8); LYMPHOCYTES % (AUTO) 27.8 % (20.0-44.0); MEAN CORPUSCULAR HGB CONC 34 g/dl (31.0-36.0); MEAN CORPUSCULAR VOLUME 94 fL (82-100); MONOCYTES # (AUTO) 0.4 /CMM (0.1-1.30); MONOCYTES % (AUTO) 6.8 % (2.0-12.0); NEUTROPHILS # (AUTO) 3.5 /CMM (1.8-8.9); NEUTROPHILS % (AUTO) 63.4 % (43.0-81.0); WHITE BLOOD COUNT (AUTO) 5.5 K/uL (4.3-11.0)
[2018-09-25 06:58] LABS: PLATELET COUNT (AUTO) 35 /CMM (150-450)
[2018-09-25 07:01] LABS: ALBUMIN 2.2 g/dL (3.4-5.0); BILIRUBIN,TOTAL 0.5 mg/dL (0.2-1.0); CALCIUM, SERUM 8.3 mg/dL (8.5-10.1); CREATININE 2.6 mg/dL (0.6-1.3); MAGNESIUM 2.2 mg/dL (1.8-2.4); PHOSPHORUS 3.9 mg/dL (2.5-4.9); POTASSIUM 4.7 mmol/L (3.5-5.1); TOTAL PROTEIN, SERUM 5.5 g/dL (6.4-8.2)
--- NOTE | 2018-09-25 07:20 | NUR ---
MS/RN CLOSING NOTES PT RESTING COMFORTABLY IN BED. A/OX3. ON 2L O2 VIA NC, BREATHING EVEN AND UNLABORED. DENIES SOB. IN NO ACUTE DISTRESS. STILL WITH RIGHT SIDED ABDOMINAL PAIN DURING SHIFT, MANAGED WITH PRN DILAUDID. WITH EPISODES OF NAUSEA BUT NO EPISODES OF VOMITING DURING SHIFT. PT AWARE OF POSSIBLE GASTRIC EMPYING STUDY/MRCP TODAY. IV TO RAC PATENT AND INTACT RUNNING IVF. NO SIGNIFICANT CHANGES OVERNIGHT. BED REMAINS IN LOW/LOCKED POSITION WITH CALL LIGHT IN REACH. HOB ELEVATED. BILAT. UPPER SIDE RAILS IN PLACE. WILL ENDORSE TO DAY SHIFT RN NILSA.
--- NOTE | 2018-09-25 07:28 | NUR ---
MS/RN OPENING NOTE PATIENT IN BED IN STABLE CONDITION. A/O X 4. NO SIGNS OF ACUTE DISTRESS. NO COMPLAIN OF PAIN OR DISCOMFORT. ALL NEEDS ATTENDED TO AT THIS TIME. CALL LIGHT WITHIN REACH. WILL CONTINUE TO MONITOR TO ENSURE SAFETY.
[2018-09-25 08:00] VITALS: BP 139/74
[2018-09-25] MEDS: FAMOTIDINE/PF INJ 20 MG/2 ML VIAL IV SCH ×2 (08:16→16:30)
[2018-09-25] MEDS: IV NS 0.9% 1,000 ML IV PRN (08:20)
[2018-09-25 08:31] LABS: EOSINOPHILS % (MANUAL) 2 % (0-4); LYMPHOCYTES % (MANUAL) 22 % (16-48); MONOCYTES % (MANUAL) 6 % (0-11.0); NEUTROPHILS % (MANUAL) 70 (42-76)
--- NOTE | 2018-09-25 10:00 | NUR ---
MS/RN RECEIVED ORDER FROM DR ZAMBRANO TO START PATIENT ON CLEAR LIQUIDS DIET FOR LUNCH. PATIENT AWARE
[2018-09-25] MEDS ORDERED: METOCLOPRAMIDE HCL 10 MG/2 ML VIAL IV SCH (11:30)
--- NOTE | 2018-09-25 12:37 | NUR ---
MS/RN PATIENT NOTED WITH IV LINE ACCESS BLEEDING AND LEAKING FLUIDS. PREVIOUS IV ACCESS ON RIGHT AC REMOVED AT THIS TIME. UNABLE TO OBTAIN ANOTHER IV ACCESS, DR ZAMBRANO IS AWARE WITH ORDERS FOR INSERTION OF MIDLINE, NURSING SUP MELONIE Hawkins AWARE.
[2018-09-25 14:13] LABS: PTH, INTACT 127 pg/mL (15-65)
--- NOTE | 2018-09-25 17:56 | NUR ---
MS/RN PATIENT NOTED TOLERATING CLEAR LIQUIDS DIET WELL AND ADVANCE TO FULL LIQUIDS FOR BREAKFAST IN AM.
--- NOTE | 2018-09-25 18:07 | NUR ---
MS/RN CLOSING NOTE PATIENT IN BED IN STABLE CONDITION. A/O X 4. NO SIGNS OF ACUTE DISTRESS. NO COMPLAIN OF PAIN OR DISCOMFORT. ALL NEEDS ATTENDED TO. CALL LIGHT WITHIN REACH. WILL ENDORSE TO NEXT SHIFT FOR CONTINUITY OF CARE.
--- NOTE | 2018-09-25 19:05 | NUR ---
MS RN OPENING NOTES Patient received sitting up in bed, alert, oriented x 4. Family at bedside. Breathing even and unlabored. Not in any distress. No complaints at this time. Peripheral IV infusing at 50mL/hr. Safety measures in place; call light within reach, bed in low, locked position. Will continue to monitor accordingly
[2018-09-25 20:00] VITALS: BP 170/94
[2018-09-25 21:00] VITALS: BP 162/86
[2018-09-25] MEDS: METOCLOPRAMIDE HCL 10 MG/2 ML VIAL IV PRN (21:10)
--- NOTE | 2018-09-25 21:12 | NUR ---
RN NOTES Patient c/o abdominal pain, 10/23. Requesting for dilaudid. Dilaudid 0.5mg given as ordered. Excess wasted with another RN. Will continue to monitor accordingly
--- NOTE | 2018-09-25 21:27 | NUR ---
RN NOTES BSL- 146mg/dL. 2 units of insulin given per sliding scale. Snacks provided
[2018-09-26] MEDS: METOCLOPRAMIDE HCL 10 MG/2 ML VIAL IV PRN ×3 (03:16→18:31)
[2018-09-26] MEDS: IV NS 0.9% 1,000 ML IV PRN (04:21)
[2018-09-26] MEDS: BLOOD SUGAR DIAGNOSTIC 1 EACH STRIP IN SCH ×4 (06:30→21:45)
[2018-09-26] MEDS: INSULIN REGULAR, HUMAN 100 UNIT/ML 3 ML VIAL SQ PRN ×3 (06:32→18:11)
--- NOTE | 2018-09-26 06:32 | NUR ---
RN NOTES BSL- 133mg/dL. 2 units of insulin given per sliding scale
--- NOTE | 2018-09-26 06:37 | NUR ---
MS RN CLOSING NOTES PATIENT RESTING COMFORTABLY IN BED. A/OX4. BREATHING EVEN AND UNLABORED. IN NO ACUTE DISTRESS. RIGHT SIDED ABDOMINAL PAIN DURING SHIFT MANAGED WITH PRN DILAUDID. WITH EPISODES OF NAUSEA BUT NO EPISODES OF VOMITING DURING SHIFT, RELIEVED BY REGLAN. REN MIDLINE PATENT AND INTACT RUNNING IVF AT 50ML/HR. NO SIGNIFICANT CHANGES OVERNIGHT. BED REMAINS IN LOW/LOCKED POSITION WITH CALL LIGHT IN REACH. HOB ELEVATED. BILATERAL UPPER SIDE RAILS IN PLACE. WILL ENDORSE TO DAY SHIFT RN NILSA.
--- NOTE | 2018-09-26 07:10 | NUR ---
RN OPENING NOTES RECEIVED PATIENT IN BED IN STABLE CONDITION. A/O X 2-3, ABLE TO MAKE NEEDS KNOWN, FORGETFUL. NO SIGNS OF ACUTE DISTRESS. NO COMPLAIN OF PAIN OR DISCOMFORT. IV ACCESS INTACT AND PATENT. KEPT PATIENT SAFE AND COMFORTABLE. BED IN LOW/LOCKED POSITION SIDERAILS UPX2, CALL LIGHT IN REACH. WILL CONTINUE TO MONITOR TO ENSURE SAFETY. Addendum: 09/26/18 at 0806 by LEONIDES CONTRERAS CORRECTION: PATIENT IS A/OX4, AND "NOT FORGETFUL".
[2018-09-26] MEDS: HYDROMORPHONE 1 MG/1 ML DISP.SYRIN IV PRN ×3 (07:44→18:21)
--- NOTE | 2018-09-26 07:44 | NUR ---
RN NOTES COMPLAINTS OF ABDOMINAL PAIN 10/23. DILAUDID 0.5MG IV GIVEN ORDERED. WILL REASSESS PATIENT.
[2018-09-26] MEDS: FAMOTIDINE/PF INJ 20 MG/2 ML VIAL IV SCH ×2 (08:22→16:28)
[2018-09-26 08:28] VITALS: BP 160/96
--- NOTE | 2018-09-26 12:15 | NUR ---
RN NOTES LINDA COREAS NP AT BEDSIDE TALKING TO PATIENT. ADDRESSED PATIENT'S COMPLAINT OF BRUISE AND PAIN DISTAL TO MIDLINE ACCESS. SITE NON-TENDER NOTED. PER LINDA, JUST MONITOR FOR NOW.
[2018-09-26 12:16] LABS: BASOPHILS % (AUTO) 0.8 % (0.0-2.0); EOSINOPHILS % (AUTO) 2.2 % (0.0-6.0); HEMATOCRIT 32 % (33-45); HEMOGLOBIN 11.1 g/dL (11.5-14.8); LYMPHOCYTES # (AUTO) 1.8 /CMM (0.8-4.8); LYMPHOCYTES % (AUTO) 29.3 % (20.0-44.0); MEAN CORPUSCULAR HGB CONC 35 g/dl (31.0-36.0); MEAN CORPUSCULAR VOLUME 92 fL (82-100); MONOCYTES # (AUTO) 0.4 /CMM (0.1-1.30); MONOCYTES % (AUTO) 6.2 % (2.0-12.0); NEUTROPHILS # (AUTO) 3.7 /CMM (1.8-8.9); NEUTROPHILS % (AUTO) 61.5 % (43.0-81.0); RED BLOOD CELL COUNT(AUTO) 3.45 MIL/uL (4.0-5.2)
[2018-09-26 12:21] LABS: PLATELET COUNT (AUTO) 40 /CMM (150-450)
[2018-09-26 12:24] LABS: CALCIUM, SERUM 8.2 mg/dL (8.5-10.1); CREATININE 2.4 mg/dL (0.6-1.3); POTASSIUM 4.4 mmol/L (3.5-5.1)
[2018-09-26 12:28] LABS: MAGNESIUM 1.6 mg/dL (1.8-2.4); PHOSPHORUS 3.2 mg/dL (2.5-4.9)
[2018-09-26 13:07] LABS: BAND % (MANUAL) 1 % (0.0-5.0); EOSINOPHILS % (MANUAL) 4 % (0-4); LYMPHOCYTES % (MANUAL) 26 % (16-48); MONOCYTES % (MANUAL) 8 % (0-11.0); NEUTROPHILS % (MANUAL) 61 (42-76)
[2018-09-26 16:23] VITALS: BP 169/87
[2018-09-26] MEDS: Magnesium 1GM/D5W 100ML PREMIX 100 ML IV SCH ×4 (16:29→17:24)
[2018-09-26] MEDS ORDERED: ALBUTEROL SULFATE 8 GM HFA.AER.AD IH PRN (17:30)
--- NOTE | 2018-09-26 17:30 | NUR ---
RN NOTES MAGNESIUM IV NON ADMIN, CHANGED TO PO. PATIENT NOT TOLERATING IV MAGNESIUM WELL, "PAINFUL". NOTIFIED LINDA POPE NP. NEW ORDER OF MAG-OX 400MG PO ONE TIME.
[2018-09-26] MEDS ORDERED: MAGNESIUM OXIDE 400 MG TABLET PO ONE (18:00)
[2018-09-26] MEDS: clonazePAM 0.5 MG TABLET PO SCH (18:18)
[2018-09-26] MEDS: CARVEDILOL 3.125 MG TABLET PO SCH (18:19)
[2018-09-26] MEDS: CLONIDINE HCL 0.1 MG TABLET PO SCH (18:19)
--- NOTE | 2018-09-26 19:21 | NUR ---
RN CLOSING NOTES PATIENT IN STABLE CONDITION. ALL NEEDS ATTENDED AND PROVIDED. ALL DUE MEDICATIONS GIVEN ORDERED. ASSISTED WITH ADLS. KEPT PATIENT SAFE AND COMFORTABLE. BED IN LOW/LOCKED POSITION, SIDERAILS UPX2, CALL LIGHT IN REACH. ENDORSED TO NIGHT RN FOR NILSA.
--- NOTE | 2018-09-26 19:22 | NUR ---
MS RN OPENING NOTES Received patient A/O x2-3, awake on semi-Falcon's position on bed. On RA, no SOB/respiratory distress noted at the time. No complaints of pain/discomfort at this time. Kept patient on bed clean, dry and comfortable. On fall precautions. Call light within easy reach. Will continue to monitor accordingly.
[2018-09-26 20:00] VITALS: BP 131/72
[2018-09-26] MEDS ORDERED: hydrOXYzine PAMOATE 25 MG CAPSULE PO PRN (20:00)
[2018-09-26] MEDS: hydrALAZINE HCL 50 MG TABLET PO SCH (20:27)
[2018-09-26 20:45] VITALS: BP 131/72
--- NOTE | 2018-09-26 21:46 | NUR ---
MS RN NOTES BS check - 129. Patient refused Lantus at this time. Explained to patient the risk of not taking this medications and the s/sx of hypo/hyperglycemia. Patient verbalized understanding but insisted to refused meds. Will continue to monitor accordingly.
[2018-09-26] MEDS ORDERED: INSULIN GLARGINE, 100 UNIT/ML CARTRIDGE SQ SCH (22:00)
[2018-09-27] MEDS: METOCLOPRAMIDE HCL 10 MG/2 ML VIAL IV PRN (00:52)
[2018-09-27] MEDS: HYDROMORPHONE 1 MG/1 ML DISP.SYRIN IV PRN ×2 (00:52→11:55)
[2018-09-27] MEDS: IV NS 0.9% 1,000 ML IV PRN (01:04)
[2018-09-27 06:17] LABS: BASOPHILS % (AUTO) 0.3 % (0.0-2.0); EOSINOPHILS % (AUTO) 2.9 % (0.0-6.0); HEMATOCRIT 29 % (33-45); LYMPHOCYTES # (AUTO) 1.6 /CMM (0.8-4.8); LYMPHOCYTES % (AUTO) 27.8 % (20.0-44.0); MEAN CORPUSCULAR HGB CONC 35 g/dl (31.0-36.0); MEAN CORPUSCULAR VOLUME 92 fL (82-100); MONOCYTES # (AUTO) 0.4 /CMM (0.1-1.30); MONOCYTES % (AUTO) 6.8 % (2.0-12.0); NEUTROPHILS # (AUTO) 3.6 /CMM (1.8-8.9); NEUTROPHILS % (AUTO) 62.2 % (43.0-81.0); RED BLOOD CELL COUNT(AUTO) 3.12 MIL/uL (4.0-5.2); WHITE BLOOD COUNT (AUTO) 5.8 K/uL (4.3-11.0)
[2018-09-27 06:20] LABS: PLATELET COUNT (AUTO) 34 /CMM (150-450)
[2018-09-27 06:35] LABS: CALCIUM, SERUM 7.9 mg/dL (8.5-10.1); CREATININE 2.2 mg/dL (0.6-1.3); MAGNESIUM 1.6 mg/dL (1.8-2.4); PHOSPHORUS 3.2 mg/dL (2.5-4.9); POTASSIUM 4.1 mmol/L (3.5-5.1)
[2018-09-27] MEDS: BLOOD SUGAR DIAGNOSTIC 1 EACH STRIP IN SCH ×2 (06:53→12:29)
--- NOTE | 2018-09-27 07:00 | NUR ---
MS RN CLOSING NOTES Patient asleep on bed, easily awaken. Kept on NPO for NM Gastric emptying, patient made aware of the prep. Informed consents signed by patient. Critical level platelet reported by lab - 34. Dr Dobbs was notified with NNO. No new complaints noted from the patient. All nursing needs attended. Kept patient clean, dry and comfortable. Call light within easy reach. Endorsed to the next shift.
--- NOTE | 2018-09-27 07:21 | NUR ---
RN OPENING NOTE PT WAS RECEIVED IN BED AT LOWEST AND LOCKED POSITION WITH SIDE RAILS UPX2, A/O X4 BREATHING EVEN AND UNLABORED ON RA, NO S/S OF ANY DISTRESS NOTED AT THIS TIME, CURRENT COMPLAINT OF PAIN OF 6 OUT OF 10 IN HER ABD, PT PLATELET WAS NOTED TO BE 34 AND PER NIGHT RN NO NEW ORDERS FROM MD, PLAN FOR PT TO GET CT ABD WITH CONTRAST AND NM GASTRIC EMPTYING TODAY. SAFETY PRECAUTIONS IN PLACE, CALL LIGHT WITHIN REACH, WILL MONITOR ACCORDINGLY.
[2018-09-27 07:48] LABS: BAND % (MANUAL) 1 % (0.0-5.0); EOSINOPHILS % (MANUAL) 4 % (0-4); LYMPHOCYTES % (MANUAL) 26 % (16-48); MONOCYTES % (MANUAL) 8 % (0-11.0); NEUTROPHILS % (MANUAL) 61 (42-76)
[2018-09-27 08:00] VITALS: BP 160/90
[2018-09-27 08:09] LABS: *SPE ALBUMIN 2.5 g/dL (2.9-4.4); *SPE ALPHA-1-GLOBULIN 0.2 g/dL (0.0-0.4); *SPE ALPHA-2-GLOBULIN 0.6 g/dL (0.4-1.0); *SPE BETA GLOBULIN 0.9 g/dL (0.7-1.3); *SPE GLOBULIN, TOTAL 2.6 g/dL (2.2-3.9); *SPE M-SPIKE Not Observed g/dL (Not Observed); *SPEGAMMA GLOBULIN 0.9 g/dL (0.4-1.8)
[2018-09-27] MEDS: FAMOTIDINE/PF INJ 20 MG/2 ML VIAL IV SCH (08:36)
[2018-09-27] MEDS: hydrALAZINE HCL 50 MG TABLET PO SCH ×2 (08:44→12:29)
[2018-09-27] MEDS: CARVEDILOL 3.125 MG TABLET PO SCH (08:45)
[2018-09-27] MEDS: CLONIDINE HCL 0.1 MG TABLET PO SCH (08:45)
[2018-09-27] MEDS: clonazePAM 0.5 MG TABLET PO SCH (08:48)
--- NOTE | 2018-09-27 08:48 | NUR ---
RN NOTE PT SCHEDULED FOR CT ABD/PELVIS WITH CONTRAST AND NM GASTRIC EMPTYING LATER THIS DAY. RECEIVED CALL FROM XRAY REGARDING CREATININE LEVEL OF 2.2, MESSAGE SENT TO CALIXTO HURTADO REGARDING HIGH LEVEL, AWAITING TO HEAR BACK. WILL GIVE AM BP MEDS DUE TO A BP OF 160/90 AND WILL HOLD THE REST. WILL MONITOR ACCORDINGLY
[2018-09-27] MEDS ORDERED: FLUTICASONE/VILANTEROL 1 EACH BLST.W.DEV IH SCH (09:00)
[2018-09-27] MEDS ORDERED: BETAMETHASONE DIP 0.05% CREAM 15 GM TUBE TP SCH (09:00)
[2018-09-27] MEDS ORDERED: LOSARTAN POTASSIUM 50 MG TABLET PO SCH (09:00)
[2018-09-27] MEDS ORDERED: PREGABALIN 25 MG CAPSULE PO SCH (09:00)
[2018-09-27] MEDS ORDERED: COLCHICINE 0.6 MG TABLET PO SCH (09:00)
[2018-09-27] MEDS ORDERED: DULOXETINE HCL 30 MG CAPSULE.DR PO SCH (09:00)
[2018-09-27] MEDS ORDERED: FLUTICASONE PROPIONATE 16 GM BOTTLE NS SCH (09:00)
[2018-09-27] MEDS ORDERED: ESCITALOPRAM OXALATE (10 MG) 10 MG TABLET PO SCH (09:00)
[2018-09-27] MEDS ORDERED: ISOSORBIDE MONONITRATE (30MG) 30 MG TAB.SR.24H PO SCH (09:00)
[2018-09-27] MEDS ORDERED: DOCUSATE SODIUM 250 MG CAPSULE PO SCH (09:00)
[2018-09-27] MEDS ORDERED: Medication Not On Formulary EA (Tenofovir Alafenamide Fumarate (Vemlidy) 25 MG) PO SCH (09:00)
[2018-09-27] MEDS ORDERED: FEBUXOSTAT PO SCH (09:00)
[2018-09-27] MEDS ORDERED: MULTIVITAMINS,THERAGRAN 1 UDTAB TABLET PO SCH (09:00)
[2018-09-27] MEDS ORDERED: ERGOCALCIFEROL (VITAMIN D 2) 50,000 UNIT CAPSULE PO SCH (09:30)
--- NOTE | 2018-09-27 10:22 | NUR ---
RN NOTE ORDER RECEIVED FROM [facility] [place] STRUCTURAL BIOLOGIST THAT IT IS OKAY TO CANCEL CT ABD/PELVIS WITH CONTRAST FOR NOW, WILL INFORM XRAY
[2018-09-27] MEDS: Magnesium 1GM/D5W 100ML PREMIX 100 ML IV SCH ×2 (10:36→11:02)
[2018-09-27] MEDS ORDERED: MAGNESIUM OXIDE 400 MG TABLET PO STA ×2 (11:21→12:09)
[2018-09-27] MEDS: INSULIN REGULAR, HUMAN 100 UNIT/ML 3 ML VIAL SQ PRN (12:31)
[2018-09-27] MEDS ORDERED: METO5TAB87 PO (14:18)
[2018-09-27 15:59] VITALS: BP 137/80
--- NOTE | 2018-09-27 16:34 | NUR ---
DISCHARGE NOTE PT WAS D/C AT THIS TIME IN MEDICALLY STABLE CONDITION BACK HOME WITH SON AND COUSIN AT THIS TIME. IV AND ID BAND WERE REMOVED. PHOTOS OF SKIN TAKEN AND PLACED IN THE CHART. ALL D/C PAPERWORK, EXITCARE, AND BELONGINGS LIST WERE SIGNED, DISCUSSED, AND HANDED TO THE PATIENT. ALL NEEDS WERE ATTENDED TO DURING HIS STAY. PT WAS D/C AT THIS TIME IN STABLE CONDITION BACK HOME IN THEIR PRIVATE CAR WHERE THEY WERE TAKEN DOWN BY WHEELCHAIR BY TUCKER ELKINSITINE
[2018-09-27] MEDS ORDERED: SUVOREXANT 20 MG PO SCH (22:00)
[2018-09-28 08:08] LABS: COMPLEMENT C3, SERUM 110 mg/dL (82-167); COMPLEMENT C4, SERUM 23 mg/dL (14-44)
== END 2018-09-27 16:00 | disposition home or self-care (01) | DRG 438 ==
LOC: ER 13:01 → MEDSG2 18:54
PROVIDERS: ADMIT Registered Nurse; ATTEND Registered Nurse
PROC: 05H933Z Insertion of Infusion Device into Right Brachial Vein, Percutaneous Approach (ICD-10-PCS; principal; 2018-09-25)
DX: K85.90 Acute pancreatitis without necrosis or infection, unspecified (principal); N17.0 Acute kidney failure with tubular necrosis; K76.7 Hepatorenal syndrome; E43 Unspecified severe protein-calorie malnutrition; I13.0 Hypertensive heart and chronic kidney disease with heart failure and stage 1 through stage 4 chronic kidney disease, or unspecified chronic kidney disease; B18.1 Chronic viral hepatitis B without delta-agent; B37.3 Candidiasis of vulva and vagina; I50.9 Heart failure, unspecified; N18.9 Chronic kidney disease, unspecified; E11.65 Type 2 diabetes mellitus with hyperglycemia; E78.5 Hyperlipidemia, unspecified; E83.42 Hypomagnesemia; I25.10 Atherosclerotic heart disease of native coronary artery without angina pectoris; Z95.1 Presence of aortocoronary bypass graft; Z90.49 Acquired absence of other specified parts of digestive tract; Z83.3 Family history of diabetes mellitus; Z79.899 Other long term (current) drug therapy; Z79.51 Long term (current) use of inhaled steroids; Z79.4 Long term (current) use of insulin; Z88.5 Allergy status to narcotic agent; D69.59 Other secondary thrombocytopenia; E66.01 Morbid (severe) obesity due to excess calories; Z68.35 Body mass index [BMI] 35.0-35.9, adult; E11.43 Type 2 diabetes mellitus with diabetic autonomic (poly)neuropathy; K31.84 Gastroparesis; E11.21 Type 2 diabetes mellitus with diabetic nephropathy; E11.22 Type 2 diabetes mellitus with diabetic chronic kidney disease; K21.9 Gastro-esophageal reflux disease without esophagitis; K74.60 Unspecified cirrhosis of liver; E03.9 Hypothyroidism, unspecified; R16.1 Splenomegaly, not elsewhere classified; K57.30 Diverticulosis of large intestine without perforation or abscess without bleeding; K29.70 Gastritis, unspecified, without bleeding; I70.0 Atherosclerosis of aorta
CPT/HCPCS: 36415; 36569; 76700-TC; 80048-TC; 80053-TC; 80061-TC; 80076-TC; 81000-TC; 82140-TC; 82550-TC; 82570-TC; 82962-TC; 83690-TC; 83735-TC; 83970; 84100-TC; 84155; 84155-TC; 84165; 84300-TC; 84443-TC; 84484-TC; 84702-TC; 85025-TC; 85652-TC; 85730-TC; 87045-TC; 87081-TC; 97116-TC; 97530-TC; A4216; A9541; G0378; J0500; J1170; J1815; J2405; J2765; J3475; J3490; J7030; Q0163; Q0177

== ENCOUNTER 2018-09-28 16:41 | Inpatient (IN) | payer MEDICARE, OTHER ==
[~2018-09-28] VITALS: Ht 160 cm; Wt 97.5 kg
[~2018-09-28 16:41] MED LIST changes: +ALBU18HF2 IH; -AMLO2.5T4 PO; +BETA45CR3 TP; -CALC667C6 PO; +CHOL500052 PO; +DULO30CA2 PO; +ESCI20TA PO; +FLUT16SP16 NS; -FURO40TA5 PO; -GABA-534 PO; +HYDR-3028 PO; +ISOS30TA6 PO; -LEVO5TAB13 PO; -MAGN400T6 PO; -MECL-102 PO; +METO5TAB87 PO; -MULT-213 PO; +MULT1TAB73 PO; +NITR0.4T48 SL; -OMEP40CA37 PO; -POTA20TA83 PO; -ROSU10TA2 PO; -SPIR50TA5 PO; +SUVO20TA PO; -TOPI50TA PO; -TRAM50TA2 PO; -URSO500T10 PO; -ZOLP10TA2 PO
--- NOTE | 2018-09-28 17:00 | NUR ---
PT BIBSELF FOR L SIDED CHEST PAIN; PT AAOX4, -SOB, NAD NOTED, PT ON MONITOR, VSS, PENDING MD NANCE
[2018-09-28 18:23] LABS: BASOPHILS % (AUTO) 0.8 % (0.0-2.0); EOSINOPHILS % (AUTO) 1.2 % (0.0-6.0); HEMATOCRIT 31 % (33-45); LYMPHOCYTES # (AUTO) 0.9 /CMM (0.8-4.8); LYMPHOCYTES % (AUTO) 18.2 % (20.0-44.0); MEAN CORPUSCULAR HGB CONC 35 g/dl (31.0-36.0); MEAN CORPUSCULAR VOLUME 93 fL (82-100); MONOCYTES # (AUTO) 0.3 /CMM (0.1-1.30); MONOCYTES % (AUTO) 5.3 % (2.0-12.0); NEUTROPHILS # (AUTO) 3.8 /CMM (1.8-8.9); NEUTROPHILS % (AUTO) 74.5 % (43.0-81.0); PLATELET COUNT (AUTO) 52 /CMM (150-450); RED BLOOD CELL COUNT(AUTO) 3.38 MIL/uL (4.0-5.2); WHITE BLOOD COUNT (AUTO) 5.1 K/uL (4.3-11.0)
[2018-09-28 18:29] LABS: CALCIUM, SERUM 8.1 mg/dL (8.5-10.1); CARBON DIOXIDE 24 mmol/L (21-32); CHLORIDE 107 mmol/L (98-107); CREATININE 2.4 mg/dL (0.6-1.3); GLUCOSE 229 mg/dL (74-106); POTASSIUM 4.7 mmol/L (3.5-5.1); SODIUM SERUM 139 mmol/L (136-145); UREA NITROGEN, BLOOD 32 mg/dL (7-18)
[2018-09-28 20:00] VITALS: BP 186/101
[2018-09-28] MEDS ORDERED: LABETALOL HCL IV 100MG VIAL ONE (20:03)
[2018-09-28] MEDS ORDERED: Z GUARD REMEDY 2 OZ OINT TP PRN (20:30)
[2018-09-28] MEDS ORDERED: LABETALOL HCL IV 100MG VIAL IV ONE (20:30)
[2018-09-28] MEDS ORDERED: PROCHLORPERAZINE MALEATE 10 MG TABLET PO PRN (20:30)
[2018-09-28] MEDS ORDERED: hydrALAZINE HCL IV 20 MG VIAL IV PRN (20:30)
[2018-09-28] MEDS ORDERED: MAG HYDROX/AL HYDROX/SIMETH 30 ML UDC PO PRN (20:30)
[2018-09-28] MEDS ORDERED: ALBUTEROL SULFATE 8 GM HFA.AER.AD IH PRN (20:30)
[2018-09-28] MEDS ORDERED: NITROGLYCERIN 0.4 MG/TAB BOTTLE SL PRN (20:30)
[2018-09-28] MEDS ORDERED: MAGNESIUM HYDROXIDE 30 ML UDC PO PRN (20:30)
[2018-09-28] MEDS ORDERED: MORPHINE SULFATE INJ 2 MG/ML DISP.SYRIN IV PRN (20:30)
[2018-09-28] MEDS ORDERED: ACETAMINOPHEN 325 MG TABLET PO PRN (20:30)
[2018-09-28] MEDS ORDERED: CLONIDINE HCL 0.1 MG TABLET PO PRN (20:30)
[2018-09-28] MEDS ORDERED: HYDROCODONE/APAP 5/325MG 1 EACH TABLET PO PRN (20:30)
[2018-09-28 20:40] VITALS: BP 186/101
--- NOTE | 2018-09-28 20:40 | NUR ---
PRODUCTION SUPPORT ENGINEER OPENING ADMITTING NOTES RECEIVED PATIENT FROM ER VIA [facility] SAFELY TRANSFERRED TO BED IN 304 PATIENT IS AMBULATORY STEADY, AWAKE ALERT AND ORIENTED X4, RESPIRATIONS EVEN AND UNLABORED WITH EQUAL RISE AND FALL OF CHEST, C/O FEELING PRESSURE LIKE PAIN TO CHEST AREA, PLACED ON SHEARING SUPERVISOR SR 80, LEFT WRIST #22 GAUZE INTACT AND PATENT , NO REDNESS, NO INFILTRATION PRESENT, BELONGINGS LIST DONE, PICTURES TAKE PLACED IN CHART FOR DISCOLORATIONS, PER PATIENT "SHE HAS NO WOUNDS" WHEN ASKED TO SEE BACK. ORIENTED TO STAFF AND CALL LIGHT AND KEPT WITHIN REACH, LOW BED AND LOCKED, SAFETY PRECAUTIONS IN PLACE, ALL NEEDS ATTENDED AT THIS TIME, WILL CONTINUE TO ADDRESS NEEDS AND FOLLOW MD ORDERS.
--- NOTE | 2018-09-28 20:43 | NUR ---
REPORT GIVEN TO LEEANN RIVAS FOR NILSA; PT WILL BE TRANSPORTED TO 3RD FLOOR VIA [facility]
[2018-09-28] MEDS: INSULIN GLARGINE, 100 UNIT/ML CARTRIDGE SQ SCH (21:11)
[2018-09-28] MEDS: NITROGLYCERIN PACKET 1 GM PACKET TOP SCH (21:26)
[2018-09-28 21:32] LABS: BAND % (MANUAL) 1 % (0.0-5.0); LYMPHOCYTES % (MANUAL) 21 % (16-48); MONOCYTES % (MANUAL) 4 % (0-11.0); NEUTROPHILS % (MANUAL) 74 (42-76)
[2018-09-28] MEDS ORDERED: Medication Not On Formulary EA (Suvorexant (Belsomra) 20 MG) PO SCH (22:00)
[2018-09-28] MEDS: ZOLPIDEM TARTRATE 5 MG TABLET PO PRN (22:11)
--- NOTE | 2018-09-28 22:11 | NUR ---
EVELYN MS NOTES PATIENT REQUESTING FOR SLEEP AIDE, JUSTIN OFFERED, PATIENT AGREED GIVEN ORDERED. WILL CONTINUE TO MONITOR FOR EFFECTIVENESS. Addendum: 09/29/18 at 0652 by LEEANN ALEXANDRE RN CLARIFICATION EVELYN COX
--- NOTE | 2018-09-28 23:21 | NUR ---
EVELYN COX S/B MADE AWARE OF MORPHINE ALLERGY AND PATIENT REQUESTING FOR DILAUDID N.O OBTAINED AND READ BACK DILAUDID 1MG IV Q6HR PRN FOR PAIN AND DISCONTINUE MORPHINE. Addendum: 09/29/18 at 0652 by LEEANN ALEXANDRE RN CLARIFICATION EVELYN COX
[2018-09-29] VITALS (7 sets, daily range): BP systolic 108–149; BP diastolic 57–75
[2018-09-29] MEDS ORDERED: Medication Not On Formulary EA (Ondansetron Hcl (Zofran) 4 MG) PO SCH
[2018-09-29] MEDS: HYDROMORPHONE 1 MG/1 ML DISP.SYRIN IV PRN ×3 (00:03→18:24)
--- NOTE | 2018-09-29 00:03 | NUR ---
OFFICE CLERK ASSISTANT NOTES PATIENT C/O PAIN /10 ABDOMEN AREA CRAMPING AND CHEST PRESSURE PAIN , REQUESTING FOR DILAUDID VS WNL DILAUDID PRN GIVEN ORDERED WILL CONTINUE TO MONITOR FOR EFFECTIVENESS.
[2018-09-29] MEDS: ONDANSETRON HCL/PF 4 MG/2 ML VIAL IVP PRN ×3 (00:09→17:11)
--- NOTE | 2018-09-29 00:09 | NUR ---
URANIUM PROCESSING SUPERVISOR NOTES PATIENT REQUESTING FOR ZOFRAN TO BE TAKEN WITH DILAUDID. ZOFRAN PRN GIVEN ORDERED.
--- NOTE | 2018-09-29 01:20 | NUR ---
SUMMER ANALYST NOTES NOTED PATIENT BLOOD PRESSURE HAS DECREASED SINCE ADMISSION HOWEVER B/P IS STILL AT 166/89,HR 84 CLONIDINE PRN GIVEN ORDERED WILL CONTINUE TO MONITOR FOR EFFECTIVENESS.
[2018-09-29] MEDS ORDERED: PANTOPRAZOLE 40 MG VIAL IV SCH (01:30)
[2018-09-29] MEDS ORDERED: DEXTROSE 50%-WATER 50 ML DISP.SYRIN IV PRN (01:30)
[2018-09-29] MEDS ORDERED: *INSULIN REGULAR(HUMULIN R)HUM 100 UNIT/ML VIAL SQ PRN (01:30)
--- NOTE | 2018-09-29 02:55 | NUR ---
DEAF TEACHER NOTES UNABLE TO ADMINISTER PROTONIX ,MEDICATION IS NOT AVAILABLE IN HOSPITAL. WILL NOTIFY HOSPITALIST AND FOLLOW UP.
[2018-09-29] MEDS: NITROGLYCERIN PACKET 1 GM PACKET TOP SCH ×3 (05:02→21:05)
[2018-09-29] MEDS: BLOOD SUGAR DIAGNOSTIC 1 EACH STRIP VI SCH ×4 (06:36→21:47)
[2018-09-29] MEDS: INSULIN REGULAR, HUMAN 100 UNIT/ML 3 ML VIAL SQ PRN ×3 (06:36→17:07)
--- NOTE | 2018-09-29 06:45 | NUR ---
RN MS NOTE PATIENT IN BED SLEEPING BUT EASILY AROUSABLE , RESPIRATIONS EVEN AND UNLABORED WITH EQUAL RISE AND FALL OF CHEST, ON 2 L VIA NC FOR COMFORT AND PATIENT'S REQUEST. IV SITE TO LEFT WRIST #22 SL , NO REDNESS, NO INFILTRATION PRESENT. ON CARDIAC MONITORING SR 79, ALL NEEDS ATTENDED AT THIS TIME, UNABLE TO ADMINISTER PROTONIX NOT AVAILABLE IN HOSPITAL , WILL ENDORSE TO NEXT SHIFT FOR F/UP. STATES PAIN HAS GOTTEN BETTER WITH DILAUDID BUT FEELS PRESSURE STILL. AT THIS TIME. REMAINS COMFORTABLE, ALL NEEDS WERE ATTENDED , SAFETY PRECAUTIONS IN PLACE, LOW BED AND LOCKED .WILL ENDORSE TO NEXT SHIFT. NO CHANGES OR NO EPISODES OF DISTRESS SINCE ADMITTED TO FLOOR. Addendum: 09/29/18 at 0651 by LEEANN ALEXANDRE RN CLARIFICATION JIG BORE OPERATOR NOTES CLOSING
[2018-09-29 06:50] LABS: BASOPHILS % (AUTO) 0.4 % (0.0-2.0); EOSINOPHILS % (AUTO) 2.5 % (0.0-6.0); HEMATOCRIT 27 % (33-45); HEMOGLOBIN 9.2 g/dL (11.5-14.8); LYMPHOCYTES # (AUTO) 1.8 /CMM (0.8-4.8); LYMPHOCYTES % (AUTO) 36.3 % (20.0-44.0); MEAN CORPUSCULAR HGB CONC 35 g/dl (31.0-36.0); MEAN CORPUSCULAR VOLUME 92 fL (82-100); MONOCYTES # (AUTO) 0.4 /CMM (0.1-1.30); MONOCYTES % (AUTO) 8.6 % (2.0-12.0); NEUTROPHILS # (AUTO) 2.6 /CMM (1.8-8.9); NEUTROPHILS % (AUTO) 52.2 % (43.0-81.0); RED BLOOD CELL COUNT(AUTO) 2.89 MIL/uL (4.0-5.2)
[2018-09-29 06:54] LABS: PLATELET COUNT (AUTO) 37 /CMM (150-450)
--- NOTE | 2018-09-29 06:58 | NUR ---
DESK PENS ASSEMBLER NOTES RECEIVED CALL FROM LAB AT THIS TIME FOR CL PLT LEVEL OF 37. WILL TRY TO REACH HOSPITALIST IF UNABLE WILL ENDORSE TO NEXT SHIFT FOR CONTINUITY OF CARE.
[2018-09-29 07:01] LABS: CALCIUM, SERUM 7.7 mg/dL (8.5-10.1); CREATININE 2.2 mg/dL (0.6-1.3); MAGNESIUM 1.6 mg/dL (1.8-2.4); PHOSPHORUS 4.4 mg/dL (2.5-4.9); POTASSIUM 3.8 mmol/L (3.5-5.1)
--- NOTE | 2018-09-29 07:30 | NUR ---
FILM PROCESS OPERATOR NOTES PT IN BED, AWAKE, ALERT AND ORIENTED, NO COMPLAINT OF PAIN AT THIS TIME, RESPIRATIONS NORMAL, CALL LIGHT WITHIN REACH, NEEDS ATTENDED.
[2018-09-29 07:34] LABS: EOSINOPHILS % (MANUAL) 1 % (0-4); LYMPHOCYTES % (MANUAL) 40 % (16-48); MONOCYTES % (MANUAL) 6 % (0-11.0); NEUTROPHILS % (MANUAL) 53 (42-76)
--- NOTE | 2018-09-29 08:25 | NUR ---
AUTOMOTIVE MECHANIC NOTES PT IN BED, SEEN BY , PLAN OF CARE DISCUSSED WITH PT, PLAN FOR GI CONSULT, MD AWARE OF PLT COUNT, NO NEW ORDER GIVEN.
[2018-09-29] MEDS ORDERED: LOSARTAN POTASSIUM 50 MG TABLET PO SCH (09:00)
[2018-09-29] MEDS: FLUTICASONE PROPIONATE 16 GM BOTTLE NS SCH ×2 (09:00→17:00)
[2018-09-29] MEDS ORDERED: PREGABALIN 25 MG CAPSULE PO SCH (09:00)
[2018-09-29] MEDS: COLCHICINE 0.6 MG TABLET PO SCH ×3 (09:00→17:00)
[2018-09-29] MEDS: DOCUSATE SODIUM 250 MG CAPSULE PO SCH ×2 (09:00→09:08)
[2018-09-29] MEDS ORDERED: clonazePAM 0.5 MG TABLET PO SCH (09:00)
[2018-09-29] MEDS ORDERED: hydrOXYzine PAMOATE 25 MG CAPSULE PO PRN (09:00)
[2018-09-29] MEDS ORDERED: METOCLOPRAMIDE HCL 10 MG TABLET PO SCH (09:00)
[2018-09-29] MEDS: FLUTICASONE/VILANTEROL 1 EACH BLST.W.DEV IH SCH (09:07)
[2018-09-29] MEDS: ASPIRIN 325 MG TABLET PO SCH (09:08)
[2018-09-29] MEDS: PANTOPRAZOLE 40 MG TABLET.DR PO SCH (09:08)
[2018-09-29] MEDS: MULTIVITAMINS,THERAGRAN 1 UDTAB TABLET PO SCH (09:09)
[2018-09-29] MEDS: CLONIDINE HCL 0.1 MG TABLET PO SCH ×2 (09:09→16:52)
[2018-09-29] MEDS: ESCITALOPRAM OXALATE (10 MG) 10 MG TABLET PO SCH (09:10)
[2018-09-29] MEDS: ISOSORBIDE MONONITRATE (30MG) 30 MG TAB.SR.24H PO SCH (09:10)
[2018-09-29] MEDS: CARVEDILOL 3.125 MG TABLET PO SCH ×2 (09:10→16:52)
[2018-09-29] MEDS: hydrALAZINE HCL 50 MG TABLET PO SCH ×3 (09:14→16:51)
[2018-09-29] MEDS: DULOXETINE HCL 30 MG CAPSULE.DR PO SCH (09:27)
[2018-09-29] MEDS: IV NS 0.9% 1,000 ML IV PRN (10:17)
[2018-09-29] MEDS: Magnesium 1GM/D5W 100ML PREMIX 100 ML IV SCH ×2 (10:17→11:20)
[2018-09-29] MEDS: METOCLOPRAMIDE HCL 10 MG/2 ML VIAL IV PRN (12:15)
[2018-09-29] MEDS: BETAMETHASONE DIP 0.05% CREAM 15 GM TUBE TP SCH ×2 (12:48→17:00)
--- NOTE | 2018-09-29 13:00 | NUR ---
RN MS NOTES PT IN BED, RESTING, PAIN AND NAUSEA MEDS GIVEN NEEDED, VERBALIZED RELIEF, RECEIVED ORDERS FROM [facility] P[facility] TE[facility], PLAN FOR EGD TOMORROW, PT INFORMED, CALL LIGHT WITHIN REACH.
[2018-09-29] MEDS: TENOFOVIR ALAFENAMIDE 25 MG PO SCH (17:08)
[2018-09-29 19:36] LABS: ALBUMIN 1.9 g/dL (3.4-5.0); BILIRUBIN,DIRECT 0.1 mg/dL (0.0-0.2); BILIRUBIN,TOTAL 0.4 mg/dL (0.2-1.0); TOTAL PROTEIN, SERUM 4.6 g/dL (6.4-8.2)
--- NOTE | 2018-09-29 19:36 | NUR ---
RN MS NOTES PT IN BED, AWAKE, ALERT AND ORIENTED, PAIN MEDS GIVEN FOR PAIN MANAGEMENT, NOT IN DISTRESS, SEEN BY [facility]TADO, PLAN FOR EGD TOMORROW, CONSENT GIVEN BY PT, ALL NEEDS ATTENDED.
--- NOTE | 2018-09-29 20:27 | NUR ---
RECIEVED ALERT AND ORIENTATED NO C/O REVIEWED THE CALL LIGHT WITH HER AND TOLD HER TO ALWAYS CALL FOR ASSIST TO GET oob
[2018-09-29] MEDS: clonazePAM 0.5 MG TABLET PO SCH (21:04)
[2018-09-29] MEDS: PREGABALIN 25 MG CAPSULE PO SCH (21:05)
[2018-09-29] MEDS: INSULIN GLARGINE, 100 UNIT/ML CARTRIDGE SQ SCH (21:47)
[2018-09-29] MEDS: ZOLPIDEM TARTRATE 5 MG TABLET PO PRN (21:52)
[2018-09-30] MEDS: IV NS 0.9% 1,000 ML IV PRN (01:54)
[2018-09-30] MEDS: NITROGLYCERIN PACKET 1 GM PACKET TOP SCH ×3 (05:03→21:27)
--- NOTE | 2018-09-30 05:27 | NUR ---
CLOSING NOTES: AMBULATED TO THE BRP WITH STAND BY ASSIST, STEADY ON HER LEGS. MEDICATED TIMES 1 FOR PAIN AND EFFECTIVE. SLEP THRU THE NIGHT. LATEST B/P 130/66 HR 63. NPO SINCE MIDNIGHT D/T SCHEDULED FOR AN EGD AT 8:15am. CONSENT SIGNED CHECKOFF LIST DONE
--- NOTE | 2018-09-30 06:06 | NUR ---
AM BLOOD SUGAR 74 PATIENT IS NPO TEXTED MD MONZON TO SEE IF HE 'D LIKE A D5w TO BE GIVEN IV UNTIL AFTER THE PROCEDURE RESPONSE PENDING
--- NOTE | 2018-09-30 06:13 | NUR ---
MD MONZON ORDERED D5W IV FOR NOW UNTIL AFTER THE PROCEDURE D/T HER BLOOD SUGAR 74 THIS AM
[2018-09-30 06:28] LABS: BASOPHILS % (AUTO) 0.5 % (0.0-2.0); EOSINOPHILS % (AUTO) 3.5 % (0.0-6.0); HEMATOCRIT 31 % (33-45); HEMOGLOBIN 10.9 g/dL (11.5-14.8); LYMPHOCYTES # (AUTO) 2.3 /CMM (0.8-4.8); LYMPHOCYTES % (AUTO) 34.3 % (20.0-44.0); MEAN CORPUSCULAR HGB CONC 35 g/dl (31.0-36.0); MEAN CORPUSCULAR VOLUME 93 fL (82-100); MONOCYTES # (AUTO) 0.6 /CMM (0.1-1.30); MONOCYTES % (AUTO) 8.9 % (2.0-12.0); NEUTROPHILS # (AUTO) 3.5 /CMM (1.8-8.9); NEUTROPHILS % (AUTO) 52.8 % (43.0-81.0); RED BLOOD CELL COUNT(AUTO) 3.36 MIL/uL (4.0-5.2); WHITE BLOOD COUNT (AUTO) 6.6 K/uL (4.3-11.0)
[2018-09-30] MEDS ORDERED: IV D5W 1,000 ML IV ONE (06:30)
[2018-09-30] MEDS: BLOOD SUGAR DIAGNOSTIC 1 EACH STRIP VI SCH ×4 (06:33→21:28)
[2018-09-30 07:00] LABS: ALBUMIN 1.9 g/dL (3.4-5.0); BILIRUBIN,TOTAL 0.4 mg/dL (0.2-1.0); CALCIUM, SERUM 7.8 mg/dL (8.5-10.1); CREATININE 2.5 mg/dL (0.6-1.3); MAGNESIUM 2.1 mg/dL (1.8-2.4); PHOSPHORUS 4.4 mg/dL (2.5-4.9); POTASSIUM 4.1 mmol/L (3.5-5.1); TOTAL PROTEIN, SERUM 5.1 g/dL (6.4-8.2)
[2018-09-30] MEDS: PANTOPRAZOLE 40 MG TABLET.DR PO SCH (07:23)
[2018-09-30] MEDS: ONDANSETRON HCL/PF 4 MG/2 ML VIAL IVP PRN ×2 (07:28→17:37)
[2018-09-30 07:33] LABS: PLATELET COUNT (AUTO) 47 /CMM (150-450)
--- NOTE | 2018-09-30 07:35 | NUR ---
MS/RN - Assessment Patient is awake, A/O x 4, denies pain, c/o nausea, Zofran 4 mg IVP given, stable on room air. Patient currently NPO for EGD today at 08:20. Consents signed by the patient and pre-op checklist were completed. IVF D5 at 75 ml/hr infusing well on the right hand with no signs of infiltration. Labs reviewed, noted with platelets 47, trending up, relayed to Dr. Lopez with no new order at this time. Fall precautions maintained. Will continue with current medical management.
[2018-09-30 07:52] LABS: BAND % (MANUAL) 1 % (0.0-5.0); LYMPHOCYTES % (MANUAL) 28 % (16-48); MONOCYTES % (MANUAL) 9 % (0-11.0); NEUTROPHILS % (MANUAL) 61 (42-76)
[2018-09-30 07:53] LABS: EOSINOPHILS % (MANUAL) 1 % (0-4)
--- NOTE | 2018-09-30 07:55 | NUR ---
MS/RN - Notes Patient taken to OR for EGD, saline lock on the right hand is patent and intact, nausea improved, denies pain at this time. Endorsed accordingly.
[2018-09-30 08:00] VITALS: BP 143/74
[2018-09-30] MEDS: DULOXETINE HCL 30 MG CAPSULE.DR PO SCH (09:00)
[2018-09-30] MEDS: FLUTICASONE PROPIONATE 16 GM BOTTLE NS SCH ×2 (09:00→17:00)
[2018-09-30] MEDS: ISOSORBIDE MONONITRATE (30MG) 30 MG TAB.SR.24H PO SCH (09:00)
[2018-09-30] MEDS: DOCUSATE SODIUM 250 MG CAPSULE PO SCH (09:00)
[2018-09-30] MEDS: hydrALAZINE HCL 50 MG TABLET PO SCH ×3 (09:00→17:00)
[2018-09-30] MEDS: PREGABALIN 25 MG CAPSULE PO SCH ×2 (09:00→21:28)
[2018-09-30] MEDS: FLUTICASONE/VILANTEROL 1 EACH BLST.W.DEV IH SCH (09:00)
[2018-09-30] MEDS: CARVEDILOL 3.125 MG TABLET PO SCH ×2 (09:00→17:00)
[2018-09-30] MEDS: clonazePAM 0.5 MG TABLET PO SCH ×2 (09:00→21:28)
[2018-09-30] MEDS: CLONIDINE HCL 0.1 MG TABLET PO SCH ×2 (09:00→17:00)
[2018-09-30] MEDS: MULTIVITAMINS,THERAGRAN 1 UDTAB TABLET PO SCH (09:00)
[2018-09-30] MEDS: ESCITALOPRAM OXALATE (10 MG) 10 MG TABLET PO SCH (09:00)
[2018-09-30] MEDS: BETAMETHASONE DIP 0.05% CREAM 15 GM TUBE TP SCH ×2 (09:00→17:00)
[2018-09-30] MEDS: TENOFOVIR ALAFENAMIDE 25 MG PO SCH (09:00)
[2018-09-30] MEDS: COLCHICINE 0.6 MG TABLET PO SCH ×2 (09:00→17:00)
--- NOTE | 2018-09-30 09:15 | NUR ---
MS/RN - Notes Patient came back from recovery room, awake, A/O x 4, denies pain, stable on room air, vitals monitored per protocol, post-op orders noted and carried out.
[2018-09-30] MEDS: ASPIRIN 325 MG TABLET PO SCH (09:18)
--- NOTE | 2018-09-30 11:00 | NUR ---
MS/RN - Notes Patient watching TV in no acute distress. All needs attended. Will continue to monitor closely.
[2018-09-30] MEDS: METOCLOPRAMIDE HCL 10 MG/2 ML VIAL IV PRN ×2 (11:46→19:57)
[2018-09-30] MEDS: HYDROMORPHONE 1 MG/1 ML DISP.SYRIN IV PRN ×2 (12:52→18:57)
--- NOTE | 2018-09-30 15:00 | NUR ---
MS/RN - Notes Patient watching TV comfortably, denies pain, no apparent distress seen. All needs attended and met. Will continue to monitor.
[2018-09-30 16:00] VITALS: BP 121/64
[2018-09-30] MEDS: INSULIN REGULAR, HUMAN 100 UNIT/ML 3 ML VIAL SQ PRN (18:05)
--- NOTE | 2018-09-30 19:16 | NUR ---
MS/RN - End of shift summary No significant change in condition seen, still c/o abdominal pain and nausea, Dilaudid given for pain, Zofran IV alternate with Reglan IV were effective. No active bleeding seen. Anticipate discharge home tomorrow if condition improves.
--- NOTE | 2018-09-30 19:30 | NUR ---
MS/RN RECEIVE PATIENT AWAKE, ALERT, ORIENTED, TOLERABLE PAIN LEVEL AT THIS TIME, NO DISTRESS NOTED, CALL LIGHT IN REACH. WILL MONITOR.
[2018-09-30 20:00] VITALS: BP 140/80
[2018-09-30] MEDS: INSULIN GLARGINE, 100 UNIT/ML CARTRIDGE SQ SCH (21:29)
--- NOTE | 2018-09-30 22:58 | NUR ---
MS/RN PATIENT IS SLEEPING AT THIS TIME, AROUSABLE, APPEAR COMFORTABLE, NO SIGNS OF DISTRESS NOTED, CALL LIGHT IN REACH. WILL CONTINUE TO MONITOR.
[2018-10-01] MEDS: HYDROMORPHONE 1 MG/1 ML DISP.SYRIN IV PRN ×2 (00:19→07:01)
[2018-10-01] MEDS: ONDANSETRON HCL/PF 4 MG/2 ML VIAL IVP PRN (01:13)
[2018-10-01] MEDS: NITROGLYCERIN PACKET 1 GM PACKET TOP SCH ×2 (06:00→12:30)
[2018-10-01] MEDS: IV NS 0.9% 1,000 ML IV PRN (06:06)
--- NOTE | 2018-10-01 06:18 | NUR ---
MS/RN ACCU CHECK BLOOD SUGAR 57, PATIENT IS ASYMPTOMATIC, APPLE JUICE GIVEN WILL RECHECK BLOOD SUGAR.
[2018-10-01] MEDS: METOCLOPRAMIDE HCL 10 MG/2 ML VIAL IV PRN (06:57)
[2018-10-01] MEDS: BLOOD SUGAR DIAGNOSTIC 1 EACH STRIP VI SCH ×2 (07:02→11:53)
--- NOTE | 2018-10-01 07:20 | NUR ---
MS RN OPENING NOTES RECEIVED PT IN BED, AWAKE, A/O X4. DURING ROOM ROUNDS, PT IS BEING GIVEN PAIN MEDICATION PRN FROM NIGHT NURSE AROUND 0700. PT TOLERATING RA, WITH NO ACUTE RESPIRATORY DISTRESS NOTED. IVF NS AT 100ML/HR TO RIGHT HAND G22, INTACT AND FLUID INFUSING WELL. PT DENIES ANY QUESTIONS OR CONCERNS AT THIS TIME. PT KEPT COMFORTABLE. PT'S BED IN LOWEST, LOCKED POSITION WITH SR X2. CALL LIGHT KEPT WITHIN REACH. WILL CONTINUE PLAN OF CARE.
[2018-10-01 08:00] VITALS: BP 130/69
[2018-10-01] MEDS: DOCUSATE SODIUM 250 MG CAPSULE PO SCH (08:00)
[2018-10-01] MEDS: DULOXETINE HCL 30 MG CAPSULE.DR PO SCH (08:00)
[2018-10-01] MEDS: ISOSORBIDE MONONITRATE (30MG) 30 MG TAB.SR.24H PO SCH (08:00)
[2018-10-01] MEDS: clonazePAM 0.5 MG TABLET PO SCH (08:04)
[2018-10-01] MEDS: CARVEDILOL 3.125 MG TABLET PO SCH (08:04)
[2018-10-01] MEDS: CLONIDINE HCL 0.1 MG TABLET PO SCH (08:04)
[2018-10-01] MEDS: COLCHICINE 0.6 MG TABLET PO SCH (08:04)
[2018-10-01] MEDS: ESCITALOPRAM OXALATE (10 MG) 10 MG TABLET PO SCH (08:04)
[2018-10-01] MEDS: PANTOPRAZOLE 40 MG TABLET.DR PO SCH (08:08)
[2018-10-01] MEDS: MULTIVITAMINS,THERAGRAN 1 UDTAB TABLET PO SCH (08:26)
[2018-10-01] MEDS: TENOFOVIR ALAFENAMIDE 25 MG PO SCH (08:26)
[2018-10-01] MEDS: FLUTICASONE PROPIONATE 16 GM BOTTLE NS SCH (08:28)
[2018-10-01] MEDS: FLUTICASONE/VILANTEROL 1 EACH BLST.W.DEV IH SCH (08:28)
[2018-10-01] MEDS: BETAMETHASONE DIP 0.05% CREAM 15 GM TUBE TP SCH (08:29)
[2018-10-01] MEDS: PREGABALIN 25 MG CAPSULE PO SCH (08:30)
[2018-10-01] MEDS: hydrALAZINE HCL 50 MG TABLET PO SCH ×2 (08:32→12:31)
--- NOTE | 2018-10-01 09:18 | NUR ---
MS RN NOTES PT SEEN AND EVALUATED BY MD/ED. MD INFORMED PT PLAN OF CARE AND PLAN OF DISCHARGE. WILL CONTINUE TO MONITOR PT.
[2018-10-01 12:31] VITALS: BP 118/68
--- NOTE | 2018-10-01 13:00 | NUR ---
MS WINDOWS APPLICATION PACKAGER NOTES PT DISCHARGED TO HOME. PT LEFT THE HOSPITAL ALONE TRANSPORT VIA [facility] PER PT'S PREFERENCE. PT A/O X4. AMBULATORY; STEADY GAIT. TOLERATING RA, WITH NO ACUTE RESPIRATORY DISTRESS NOTED. PT DENIES ANY PAIN OR DISCOMFORT AT THE TIME OF DISCHARGE. PT STATED HER SKIN IS INTACT AND DOESN'T HAVE WOUNDS THAT NEEDS PICTURE TO BE TAKEN. NO PICTURES FILED PER PT'S PREFERENCE. DISCHARGE INSTRUCTIONS AND INVENTORY LIST REVIEWED AND SIGNED BY PY HERSELF. ALL BELONGINGS WITH THE PT. ALL NEEDS AND CARE ATTENDED AND PROVIDED. PRESCRIPTIONS GIVEN TO PT. PIV TO RIGHT HAND REMOVED AND APPLIED DRY DRESSING. HAND TUBE BENDER ESCORTED PT TO THE LOBBY AND WAITED FOR [employer] CAR TO TOBACCO SAMPLE PULLER PT. PT LEFT THE UNIT AT 1250. PT LEFT THE LOBBY AT 1255. MD/ED AND BEN/LAYO AWARE OF DISCHARGE. VS STABLE AND RECORDED.
[2018-10-11] MEDS ORDERED: ERGOCALCIFEROL (VITAMIN D 2) 50,000 UNIT CAPSULE PO SCH (09:00)
== END 2018-10-01 12:40 | disposition home or self-care (01) | DRG 391 ==
LOC: ER 16:47 → TELE 20:19 → MED 09-29 09:44
PROVIDERS: ADMIT Internal Medicine; ATTEND Internal Medicine
PROC: 0DB78ZX Excision of Stomach, Pylorus, Via Natural or Artificial Opening Endoscopic, Diagnostic (ICD-10-PCS; principal; 2018-09-30)
DX: K29.70 Gastritis, unspecified, without bleeding (principal); E43 Unspecified severe protein-calorie malnutrition; N17.0 Acute kidney failure with tubular necrosis; I13.0 Hypertensive heart and chronic kidney disease with heart failure and stage 1 through stage 4 chronic kidney disease, or unspecified chronic kidney disease; I50.32 Chronic diastolic (congestive) heart failure; K76.6 Portal hypertension; B18.1 Chronic viral hepatitis B without delta-agent; K21.9 Gastro-esophageal reflux disease without esophagitis; D69.59 Other secondary thrombocytopenia; E11.22 Type 2 diabetes mellitus with diabetic chronic kidney disease; N18.9 Chronic kidney disease, unspecified; K74.60 Unspecified cirrhosis of liver; K29.80 Duodenitis without bleeding; G89.4 Chronic pain syndrome; E11.42 Type 2 diabetes mellitus with diabetic polyneuropathy; I25.10 Atherosclerotic heart disease of native coronary artery without angina pectoris; K44.9 Diaphragmatic hernia without obstruction or gangrene; K57.30 Diverticulosis of large intestine without perforation or abscess without bleeding; Z95.1 Presence of aortocoronary bypass graft; Z83.3 Family history of diabetes mellitus; Z90.49 Acquired absence of other specified parts of digestive tract; E78.5 Hyperlipidemia, unspecified; Z88.5 Allergy status to narcotic agent; Z79.51 Long term (current) use of inhaled steroids; Z79.899 Other long term (current) drug therapy; E83.42 Hypomagnesemia; D64.9 Anemia, unspecified; Z79.4 Long term (current) use of insulin; D69.6 Thrombocytopenia, unspecified; Z68.38 Body mass index [BMI] 38.0-38.9, adult; E66.9 Obesity, unspecified
CPT/HCPCS: 36415; 71045-TC; 80048-TC; 80053-TC; 80061-TC; 80076-TC; 82150-TC; 82247-TC; 82248-TC; 82728-TC; 82962-TC; 83540-TC; 83690-TC; 83735-TC; 84100-TC; 84484-TC; 85025-TC; 85610-TC; 87081-TC; 93307-TC; C9113; G0378; J1170; J1815; J2405; J2765; J3475; J3490; J7030; J7050; J7070; J8597; Q0164; Q0177

== ENCOUNTER 2019-01-31 11:57 | Inpatient (IN) | payer MEDICARE, OTHER ==
[~2019-01-31] VITALS: Ht 160 cm; Wt 85.7 kg
[~2019-01-31 11:57] MED LIST changes: -CLON0.5T12 PO; +CLON0.5T4 PO
--- NOTE | 2019-01-31 12:04 | NUR ---
"C/O ABD PAIN, +N/V, -DIARRHEA x 3 DAYS" PT AAOX4, -SOB, NAD NOTED, VSS ,PENDING MD NANCE
[2019-01-31 12:17] LABS: BASOPHILS % (AUTO) 0.5 % (0.0-2.0); EOSINOPHILS % (AUTO) 5.1 % (0.0-6.0); HEMATOCRIT 37 % (33-45); HEMOGLOBIN 12.5 g/dL (11.5-14.8); LYMPHOCYTES # (AUTO) 1.4 /CMM (0.8-4.8); LYMPHOCYTES % (AUTO) 29.3 % (20.0-44.0); MEAN CORPUSCULAR HGB CONC 34 g/dl (31.0-36.0); MEAN CORPUSCULAR VOLUME 94 fL (82-100); MONOCYTES # (AUTO) 0.4 /CMM (0.1-1.30); MONOCYTES % (AUTO) 8.1 % (2.0-12.0); NEUTROPHILS # (AUTO) 2.8 /CMM (1.8-8.9); PLATELET COUNT (AUTO) 65 /CMM (150-450); RED BLOOD CELL COUNT(AUTO) 3.92 MIL/uL (4.0-5.2); WHITE BLOOD COUNT (AUTO) 4.9 K/uL (4.3-11.0)
[2019-01-31 12:27] LABS: CALCIUM, SERUM 9.1 mg/dL (8.5-10.1); CARBON DIOXIDE 26 mmol/L (21-32); CHLORIDE 105 mmol/L (98-107); CREATININE 2.6 mg/dL (0.6-1.3); GLUCOSE 161 mg/dL (74-106); POTASSIUM 4.1 mmol/L (3.5-5.1); SODIUM SERUM 139 mmol/L (136-145); UREA NITROGEN, BLOOD 36 mg/dL (7-18)
[2019-01-31] MEDS ORDERED: KETOROLAC TROMETHAMINE INJ 30 MG/ML VIAL IV ONE (12:30)
[2019-01-31] MEDS ORDERED: ONDANSETRON HCL/PF 4 MG/2 ML VIAL IVP ONE (12:30)
[2019-01-31 12:33] LABS: ALANINE AMINOTRANSFERASE 20 U/L (12-78); ALBUMIN 2.9 g/dL (3.4-5.0); ALKALINE PHOSPHATASE 136 U/L (46-116); ASPARTATE AMINOTRANSFERASE 24 U/L (15-37); BILIRUBIN,DIRECT 0.1 mg/dL (0.0-0.2); BILIRUBIN,TOTAL 0.5 mg/dL (0.2-1.0); LIPASE 301 U/L (73-393); TOTAL PROTEIN, SERUM 7.2 g/dL (6.4-8.2)
[2019-01-31 12:36] LABS: APPEARANCE,URINE Slightly Cloudy (CLEAR); BILIRUBIN,URINE Negative (NEGATIVE); BLOOD, URINE Small Ery/uL (NEGATIVE); COLOR,URINE Yellow (YELLOW); KETONES,URINE Negative (NEGATIVE); LEUKOCYTE ESTERASE ,URINE Negative (NEGATIVE); NITRITE, URINE Negative (NEGATIVE); PROTEIN,URINE >=300 mg/dl (NEGATIVE); UGLUCOSE 100 MG/DL mg/dL (NEGATIVE); UROBILINOGEN,URINE 0.2 EU/dL (0.2)
[2019-01-31] MEDS ORDERED: KETOROLAC TROMETHAMINE INJ 30 MG/ML VIAL ONE (12:36)
[2019-01-31] MEDS ORDERED: ONDANSETRON HCL/PF 4 MG/2 ML VIAL ONE (12:36)
[2019-01-31 12:56] LABS: BACTERIA,URINE Few /HPF (None Seen); HYALINE CASTS, URINE Few /LPF (None Seen); SQUAMOUS EPITHELIAL CELL,UR Few /HPF (None Seen); WBC,URINE 0-2 /HPF (0-3)
[2019-01-31] MEDS ORDERED: TRAZ-182 PO (13:31)
[2019-01-31] MEDS ORDERED: AMLO5TAB4 PO (13:31)
[2019-01-31] MEDS ORDERED: CHOL500052 PO (13:31)
[2019-01-31] MEDS ORDERED: TENO25TA PO (13:31)
--- NOTE | 2019-01-31 14:09 | NUR ---
[facility]
--- NOTE | 2019-01-31 15:00 | NUR ---
report given to fede otero for sivakumar pt will be transported to 3rd floor
[2019-01-31 15:11] LABS: EOSINOPHILS % (MANUAL) 5 % (0-4); LYMPHOCYTES % (MANUAL) 30 % (16-48); MONOCYTES % (MANUAL) 10 % (0-11.0); NEUTROPHILS % (MANUAL) 55 (42-76)
[2019-01-31] MEDS ORDERED: MAG HYDROX/AL HYDROX/SIMETH 30 ML UDC PO PRN (15:30)
[2019-01-31] MEDS ORDERED: ZOLPIDEM TARTRATE 5 MG TABLET PO PRN (15:30)
[2019-01-31] MEDS ORDERED: MAGNESIUM HYDROXIDE 30 ML UDC PO PRN (15:30)
[2019-01-31] MEDS ORDERED: ACETAMINOPHEN 325 MG TABLET PO PRN (15:30)
[2019-01-31] MEDS ORDERED: Z GUARD REMEDY 2 OZ OINT TP PRN (15:30)
[2019-01-31] MEDS ORDERED: TRAZODONE 50 MG TABLET PO PRN (15:30)
[2019-01-31 16:00] VITALS: BP 131/60
[2019-01-31] MEDS: hydrALAZINE HCL 50 MG TABLET PO SCH (16:10)
[2019-01-31] MEDS: ONDANSETRON HCL/PF 4 MG/2 ML VIAL IVP PRN ×2 (16:11→22:37)
[2019-01-31] MEDS: PANTOPRAZOLE 40 MG TABLET.DR PO SCH (16:11)
[2019-01-31] MEDS: IV NS 0.9% 1,000 ML IV PRN (16:12)
[2019-01-31] MEDS: PREGABALIN 25 MG CAPSULE PO SCH (16:14)
[2019-01-31] MEDS: HYDROMORPHONE INJ 2 MG/ML DISP.SYRIN IV PRN ×2 (16:15→20:36)
[2019-01-31] MEDS: CARVEDILOL 3.125 MG TABLET PO SCH (16:29)
[2019-01-31] MEDS: diphenhydrAMINE HCL 50 MG/ML VIAL IV PRN ×2 (16:32→23:02)
[2019-01-31] MEDS ORDERED: CLONIDINE HCL 0.1 MG TABLET PO PRN (17:00)
[2019-01-31 17:20] VITALS: BP 171/100
--- NOTE | 2019-01-31 17:26 | NUR ---
M/S C PYTHON DEVELOPER NOTES PATIENT RECEIVED VIA GURNEY FROM ER WITH ADMITTING DX OF ABDOMINAL PAIN. A/O x4 ABLE TO MAKE NEEDS KNOWN. ROOM AIR, NO SIGNS OF RESPIRATORY DISTRESS. AMBULATORY AND STABLE WITH NO ASSIST NEEDED. PATIENT IS CONTINENT WITH BRP. CLEAR LIQUID DIET UNTIL EVALUATION BY GI. IV LOCATED ON [facility] #20 RUNNING NS 75 ML/ HR. ADMITTING ORDERS GIVEN BY DR. DEJESUS. BED IN LOWEST POSITION, BRAKES ON, AND CALL LIGHT WITHIN REACH. WILL CONTINUE TO MONITOR.
--- NOTE | 2019-01-31 18:56 | NUR ---
M/S RN NOTES PATIENT CURRENTLY RESTING IN BED WITH DAUGHTER AT BEDSIDE. PATIENT HAS NO SIGNS OF DISTRESS. A/O x4 AND AMBULATORY ABLE TO LET NEEDS BE KNOWN. PATIENT ON CLEAR LIQUID DIET. IV LOCATED ON L AC #20. SAFETY PRECAUTIONS IN PLACE WITH BED IN LOWEST POSITION, BREAKS ON, AND CALL LIGHT WITHIN REACH. ALL MEDS WERE GIVEN. WILL ENDORSE TO ONCOMING NURSE ABOUT NILSA.
--- NOTE | 2019-01-31 19:20 | NUR ---
MS/RN NOTES RECEIVED PT. LYING IN BED. PT. IS AWAKE, ALERT AND ORIENTED X4. BREATHING EVEN AND UNLABORED ON ROOM AIR. NO SOB OR RESPIRATORY DISTRESS NOTED AT THIS TIME. PT. COMPLAINING OF ABDOMINAL PAIN, WILL ADMINISTER TO PT. PAIN MEDICATION ORDERED. PT. WITH LEFT AC 20 GAUGE PERIPHERAL IV PRESENT, PATENT AND INTACT ADMINISTERING TO PT. NS @ 75 ML/HR. BED LOCKED AND IN LOWEST POSITION, SIDE RAILS UP X2, CALL LIGHT WITHIN REACH, WILL CONTINUE TO MONITOR.
[2019-01-31 20:00] VITALS: BP 132/81
[2019-02-01] MEDS: HYDROMORPHONE INJ 2 MG/ML DISP.SYRIN IV PRN ×4 (02:17→21:52)
[2019-02-01] MEDS: ONDANSETRON HCL/PF 4 MG/2 ML VIAL IVP PRN ×3 (05:12→18:43)
[2019-02-01] MEDS: IV NS 0.9% 1,000 ML IV PRN ×2 (05:42→19:02)
[2019-02-01] MEDS: diphenhydrAMINE HCL 50 MG/ML VIAL IV PRN ×3 (05:42→19:51)
--- NOTE | 2019-02-01 06:45 | NUR ---
MS/RN NOTES PT. IS LYING IN BED RESTING. BREATHING EVEN AND UNLABORED ON ROOM AIR. NO SOB, RESPIRATORY DISTRESS OR COMPLAINTS OF PAIN NOTED AT THIS TIME. PT. WITH LEFT AC 20 GAUGE PERIPHERAL IV PRESENT, PATENT AND INTACT ADMINISTERING TO PT. NS @ 75 ML/HR. ALL PT. NEEDS MET. BED LOCKED AND IN LOWEST POSITION, SIDE RAILS UP X2, CALL LIGHT WITHIN REACH, WILL ENDORSE TO DAYSHIFT NURSE FOR CONTINUITY OF CARE.
[2019-02-01 07:46] LABS: ALBUMIN 2.4 g/dL (3.4-5.0); BILIRUBIN,TOTAL 0.5 mg/dL (0.2-1.0); CALCIUM, SERUM 8.2 mg/dL (8.5-10.1); CREATININE 2.6 mg/dL (0.6-1.3); MAGNESIUM 1.8 mg/dL (1.8-2.4); PHOSPHORUS 4.9 mg/dL (2.5-4.9); POTASSIUM 4.4 mmol/L (3.5-5.1); TOTAL PROTEIN, SERUM 5.8 g/dL (6.4-8.2)
--- NOTE | 2019-02-01 07:49 | NUR ---
M/S RN OPENING NOTES PATIENT RECEIVED RESTING IN BED WATCHING TV A/O x4. PATIENT ABLE TO MAKE NEEDS KNOWN. NO SIGNS OF DISTRESS AND NO CURRENT COMPLAINTS OF PAIN. PATIENT ABLE TO AMBULATE IN AND OUT OF BED, STABLE. IV LOCATED ON RAC #18 INTACT AND PATIENT. BED IS IN LOWEST POSITION, BED LOCKED, AND CALL LIGHT WITHIN REACH. WILL CONTINUE TO MONITOR.
[2019-02-01 07:57] LABS: BASOPHILS % (AUTO) 0.4 % (0.0-2.0); EOSINOPHILS % (AUTO) 5.6 % (0.0-6.0); HEMATOCRIT 32 % (33-45); HEMOGLOBIN 11.1 g/dL (11.5-14.8); LYMPHOCYTES # (AUTO) 0.7 /CMM (0.8-4.8); LYMPHOCYTES % (AUTO) 20.4 % (20.0-44.0); MEAN CORPUSCULAR HGB CONC 34 g/dl (31.0-36.0); MEAN CORPUSCULAR VOLUME 94 fL (82-100); MONOCYTES # (AUTO) 0.3 /CMM (0.1-1.30); MONOCYTES % (AUTO) 8.4 % (2.0-12.0); NEUTROPHILS # (AUTO) 2.2 /CMM (1.8-8.9); NEUTROPHILS % (AUTO) 65.2 % (43.0-81.0); RED BLOOD CELL COUNT(AUTO) 3.43 MIL/uL (4.0-5.2); WHITE BLOOD COUNT (AUTO) 3.4 K/uL (4.3-11.0)
[2019-02-01 08:00] VITALS: BP 188/97
[2019-02-01 08:17] LABS: PLATELET COUNT (AUTO) 34 /CMM (150-450)
[2019-02-01] MEDS: DOCUSATE SODIUM 250 MG CAPSULE PO SCH (08:31)
[2019-02-01] MEDS: PREGABALIN 25 MG CAPSULE PO SCH ×2 (08:31→16:43)
[2019-02-01] MEDS: PANTOPRAZOLE 40 MG TABLET.DR PO SCH ×2 (08:31→16:42)
[2019-02-01] MEDS: AMLODIPINE BESYLATE 5 MG TABLET PO SCH (08:32)
[2019-02-01] MEDS: TENOFOVIR ALAFENAMIDE FUMARATE 25 MG PO SCH (08:32)
[2019-02-01] MEDS: ISOSORBIDE MONONITRATE (30MG) 30 MG TAB.SR.24H PO SCH (08:32)
[2019-02-01] MEDS: hydrALAZINE HCL 50 MG TABLET PO SCH ×3 (08:32→16:43)
[2019-02-01] MEDS: CARVEDILOL 3.125 MG TABLET PO SCH ×2 (08:32→16:42)
[2019-02-01 08:41] LABS: EOSINOPHILS % (MANUAL) 9 % (0-4); LYMPHOCYTES % (MANUAL) 17 % (16-48); MONOCYTES % (MANUAL) 5 % (0-11.0); NEUTROPHILS % (MANUAL) 69 (42-76)
[2019-02-01] MEDS: CIPROFLOXACIN IV RTU 400 MG in PREMIX 1 EA IV SCH ×2 (11:13→21:40)
[2019-02-01] MEDS: METRONIDAZOLE 500MG/ NS 100ML 500 MG in PREMIX 1 EA IV SCH ×2 (12:10→19:52)
--- NOTE | 2019-02-01 15:55 | NUR ---
M/S RN NOTES PATIENT VOMITED 50 ML, CLEAR. GIVEN ICE CHIPS HOB ELEVATED.
[2019-02-01 16:00] VITALS: BP 119/70
--- NOTE | 2019-02-01 17:49 | NUR ---
M/S RN CLOSING NOTES PATIENT IS CURRENTLY RESTING IN BED WATCHING TV A/O x4. PATIENT IS AMBULATORY, NO CURRENT COMPLAINTS OF PAIN. NO SIGNS OF DISTRESS. IV LOCATION ON L AC #20 RUNNING NS @ 75 ML/HR. SAFETY PRECAUTIONS IN ARE IN PLACE WITH BED IN LOWEST POSITION, BREAKS ON, AND CALL LIGHT WITHIN REACH. GI CONSULT PENDING. WILL ENDORSE TO ONCOMING CHASSIS MECHANIC NURSE ABOUT NILSA.
--- NOTE | 2019-02-01 19:25 | NUR ---
MS/RN NOTES RECEIVED PT. LYING IN BED. PT. IS AWAKE, ALERT AND ORIENTED X4. BREATHING EVEN AND UNLABORED ON ROOM AIR. NO SOB, RESPIRATORY DISTRESS OR COMPLAINTS OF PAIN NOTED AT THIS TIME. PT. WITH LEFT AC 20 GAUGE PERIPHERAL IV PRESENT, PATENT AND INTACT ADMINISTERING TO PT. NS @ 75 ML/HR. PT. FAMILY MEMBERS PRESENT AT BEDSIDE. BED LOCKED AND IN LOWEST POSITION, SIDE RAILS UP X2, CALL LIGHT WITHIN REACH, WILL CONTINUE TO MONITOR.
[2019-02-01 20:00] VITALS: BP 131/78
[2019-02-02] MEDS: METRONIDAZOLE 500MG/ NS 100ML 500 MG in PREMIX 1 EA IV SCH ×3 (04:16→21:42)
[2019-02-02] MEDS: HYDROMORPHONE INJ 2 MG/ML DISP.SYRIN IV PRN ×4 (05:38→19:40)
[2019-02-02] MEDS: ONDANSETRON HCL/PF 4 MG/2 ML VIAL IVP PRN ×3 (06:14→19:39)
--- NOTE | 2019-02-02 06:28 | NUR ---
MS/RN NOTES PT. IS LYING IN BED, AWAKE, ALERT AND ORIENTED X4. BREATHING EVEN AND UNLABORED ON ROOM AIR. NO SOB, RESPIRATORY DISTRESS OR COMPLAINTS OF PAIN NOTED AT THIS TIME. PT. WITH LEFT AC 20 GAUGE PERIPHERAL IV PRESENT, PATENT AND INTACT ADMINISTERING TO PT. NS @ 75 ML/HR. ALL PT. NEEDS MET. BED LOCKED AND IN LOWEST POSITION, SIDE RAILS UP X2, CALL LIGHT WITHIN REACH, WILL ENDORSE TO DAYSHIFT NURSE FOR CONTINUITY OF CARE.
[2019-02-02 06:49] LABS: BASOPHILS % (AUTO) 0.6 % (0.0-2.0); EOSINOPHILS % (AUTO) 6.6 % (0.0-6.0); HEMATOCRIT 34 % (33-45); HEMOGLOBIN 11.8 g/dL (11.5-14.8); LYMPHOCYTES % (AUTO) 27.6 % (20.0-44.0); MEAN CORPUSCULAR HGB CONC 35 g/dl (31.0-36.0); MEAN CORPUSCULAR VOLUME 94 fL (82-100); MONOCYTES # (AUTO) 0.3 /CMM (0.1-1.30); MONOCYTES % (AUTO) 8.1 % (2.0-12.0); NEUTROPHILS # (AUTO) 2.2 /CMM (1.8-8.9); NEUTROPHILS % (AUTO) 57.1 % (43.0-81.0); RED BLOOD CELL COUNT(AUTO) 3.62 MIL/uL (4.0-5.2); WHITE BLOOD COUNT (AUTO) 3.8 K/uL (4.3-11.0)
[2019-02-02 07:02] LABS: CALCIUM, SERUM 8.3 mg/dL (8.5-10.1); CREATININE 3.1 mg/dL (0.6-1.3); POTASSIUM 4.8 mmol/L (3.5-5.1)
[2019-02-02 07:05] LABS: THYROID STIMULATING HORMONE 1.58 uIU/mL (0.358-3.74)
[2019-02-02 07:07] LABS: PLATELET COUNT (AUTO) 45 /CMM (150-450)
--- NOTE | 2019-02-02 07:30 | NUR ---
MS/RN Opening note Patient received resting in bed, A/O x4, breathing is even and unlabored on room air, no signs of SOB noted at this time. IV in the LAC 20g is clean and patent running at 75mL/hr. Bed is in lowest position, side rails x2 in upright position. Call light is within reach and patient is aware of how to call for assistance when needed. Will continue with plan of care.
[2019-02-02 08:00] VITALS: BP 138/74
[2019-02-02] MEDS: CIPROFLOXACIN IV RTU 400 MG in PREMIX 1 EA IV SCH ×2 (08:24→20:08)
[2019-02-02] MEDS: AMLODIPINE BESYLATE 5 MG TABLET PO SCH (08:29)
[2019-02-02] MEDS: DOCUSATE SODIUM 250 MG CAPSULE PO SCH ×2 (08:29→08:38)
[2019-02-02] MEDS: CARVEDILOL 3.125 MG TABLET PO SCH ×2 (08:30→16:27)
[2019-02-02] MEDS: hydrALAZINE HCL 50 MG TABLET PO SCH ×3 (08:31→16:28)
[2019-02-02] MEDS: PANTOPRAZOLE 40 MG TABLET.DR PO SCH ×2 (08:32→16:28)
[2019-02-02] MEDS: ISOSORBIDE MONONITRATE (30MG) 30 MG TAB.SR.24H PO SCH (08:32)
[2019-02-02] MEDS: PREGABALIN 25 MG CAPSULE PO SCH ×2 (08:32→16:28)
[2019-02-02] MEDS: TENOFOVIR ALAFENAMIDE FUMARATE 25 MG PO SCH (08:32)
[2019-02-02 08:51] LABS: EOSINOPHILS % (MANUAL) 4 % (0-4); LYMPHOCYTES % (MANUAL) 26 % (16-48); MONOCYTES % (MANUAL) 5 % (0-11.0); NEUTROPHILS % (MANUAL) 65 (42-76)
[2019-02-02] MEDS ORDERED: IV 1/2NS 1000 ML 1,000 ML IV PRN (09:00)
[2019-02-02] MEDS ORDERED: DEXTROSE 50%-WATER 50 ML DISP.SYRIN IV PRN (09:00)
[2019-02-02] MEDS ORDERED: TENOFOVIR DISOPROXIL FUMARATE 300 MG TABLET PO SCH (09:00)
[2019-02-02] MEDS: SUCRALFATE 1 G TABLET PO SCH ×4 (09:24→21:59)
[2019-02-02 10:04] VITALS: BP 122/69
--- NOTE | 2019-02-02 10:45 | NUR ---
MS/RN Iv removed IV in the LAC was leaking and removed. New IV placed on the RAC 20g and running at 75mls/hr.
[2019-02-02] MEDS: diphenhydrAMINE HCL 50 MG/ML VIAL IV PRN ×2 (11:08→20:15)
[2019-02-02] MEDS: BLOOD SUGAR DIAGNOSTIC 1 EACH STRIP VI SCH ×3 (11:56→22:20)
[2019-02-02] MEDS: IV D5/ 0.9% NACL 1,000 ML IV PRN (12:12)
[2019-02-02] MEDS ORDERED: PIPERACILLIN /TAZOBACTAM 2.25 G in IV D5W 50 ML IV SCH (13:00)
[2019-02-02 16:00] VITALS: BP 131/70
--- NOTE | 2019-02-02 17:53 | NUR ---
MS/RN Closing note Patient is resting in bed, A/O x4, showing no signs of acute distress or SOB, vital signs WNL and saturating well on RA. IV line on RAC removed due to leaking, new IV line placed on right hand 22g running at 75ml/hr. All patient needs met and all due meds given. Bed is in lowest position, side rails x2 in upright position, call light is within reach and patient is aware of how to call for assistance when needed. Will endorse to manager business process. Addendum: 02/02/19 at 1800 by AMEYA AVILES RN *new IV line placed on left hand 22g.
--- NOTE | 2019-02-02 19:05 | NUR ---
RN MS OPENING NOTES RECEIVED PATIENT IN BED AWAKE ALERT AND ORIENTED X4, RESPIRATIONS EVEN AND UNLABORED WITH EQUAL RISE AND FALL OF CHEST, AT THIS TIME DENIES ANY PAIN OR DISCOMFORT, IV SITE TO LEFT HAND #22 INTACT AND PATENT NO REDNESS, NO INFILTRATION PRESENT, IVF RUNNING ORDERED, ORIENTED TO STAFF AND CALL LIGHT AND KEPT WITHIN, DISCUSSED PLAN OF CARE, SAFETY PRECAUTIONS IN PLACE, LOW BED AND LOCKED, ALL NEEDS ATTENDED AT THIS TIME, WILL CONTINUE TO MONITOR AND ATTEND TO NEEDS.
--- NOTE | 2019-02-02 19:40 | NUR ---
RN MS NOTES PATIENT COMPLAINT OF PAIN TO LEFT SIDE ABDOMEN AREA 08/23 STATES " ACHING, STAB LIKE PAIN. CAN I HAVE DILAUDID AND ZOFRAN" VS ASSESSED WNL 120/75,68,20,98%RA. DILAUDID PRN ORDERED GIVEN 0.5MG /0.25ML, REST WASTED AND WITNESSED WITH ANOTHER RN ZOFRAN PRN GIVEN ORDERED. WILL CONTINUE TO MONITOR FOR EFFECTIVENESS.
[2019-02-02 20:00] VITALS: BP 120/75
--- NOTE | 2019-02-02 20:19 | NUR ---
RN MS NOTES PATIENT COMPLAINT OF ITCHINESS REQUESTING FOR BENADRYL BENADRYL PRN GIVEN ORDERED, WILL CONTINUE TO MONITOR FOR EFFECTIVENESS.
[2019-02-02] MEDS: *INSULIN REGULAR(HUMULIN R)HUM 100 UNIT/ML VIAL SQ PRN (22:20)
[2019-02-03] MEDS: ONDANSETRON HCL/PF 4 MG/2 ML VIAL IVP PRN ×3 (03:15→18:05)
[2019-02-03] MEDS: HYDROMORPHONE INJ 2 MG/ML DISP.SYRIN IV PRN ×4 (03:16→21:12)
--- NOTE | 2019-02-03 03:16 | NUR ---
RN MS NOTES PATIENT COMPLAINT OF PAIN TO LEFT SIDE ABDOMEN AREA 09/22 STATES " ACHING CAN I HAVE DILAUDID AND ZOFRAN" VS ASSESSED WNL DILAUDID PRN ORDERED GIVEN 0.5MG /0.25ML, REST WASTED AND WITNESSED WITH ANOTHER RN ZOFRAN PRN GIVEN ORDERED. WILL CONTINUE TO MONITOR FOR EFFECTIVENESS.
[2019-02-03] MEDS: IV D5/ 0.9% NACL 1,000 ML IV PRN ×2 (03:25→18:00)
[2019-02-03] MEDS: METRONIDAZOLE 500MG/ NS 100ML 500 MG in PREMIX 1 EA IV SCH ×3 (04:34→20:49)
[2019-02-03] MEDS: diphenhydrAMINE HCL 50 MG/ML VIAL IV PRN ×3 (04:35→19:48)
--- NOTE | 2019-02-03 04:35 | NUR ---
RN MS NOTES PATIENT COMPLAINT OF ITCHINESS REQUESTING FOR BENADRYL BENADRYL PRN GIVEN ORDERED, WILL CONTINUE TO MONITOR FOR EFFECTIVENESS.
[2019-02-03] MEDS: BLOOD SUGAR DIAGNOSTIC 1 EACH STRIP VI SCH ×4 (06:18→21:15)
[2019-02-03] MEDS: INSULIN REGULAR, HUMAN 100 UNIT/ML 3 ML VIAL SQ PRN (06:18)
--- NOTE | 2019-02-03 06:38 | NUR ---
RN MS CLOSING NOTES PATIENT IN BED AWAKE ALERT AND ORIENTED X4, RESPIRATIONS EVEN AND UNLABORED WITH EQUAL RISE AND FALL OF CHEST, AT THIS TIME DENIES ANY PAIN OR DISCOMFORT, IV SITE TO LEFT HAND #22 INTACT AND PATENT NO REDNESS, NO INFILTRATION PRESENT, IVF RUNNING ORDERED, ALL DUE MEDS GIVEN ORDERED WITH NO ADVERSE REACTIONS NOTED, CALL LIGHT KEPT WITHIN, SAFETY PRECAUTIONS IN PLACE, LOW BED AND LOCKED, ALL NEEDS ATTENDED AT THIS TIME, TOILETING OFFERED ,WILL CONTINUE TO MONITOR AND ATTEND TO NEEDS AND ENDORSE TO NEXT SHIFT. NO S/S OF BLEEDING. NO INSULIN NEEDED THIS SHIFT BASED ON SLIDING SCALE.
[2019-02-03 07:41] LABS: BASOPHILS % (AUTO) 0.5 % (0.0-2.0); HEMATOCRIT 30 % (33-45); HEMOGLOBIN 10.1 g/dL (11.5-14.8); LYMPHOCYTES # (AUTO) 1.2 /CMM (0.8-4.8); LYMPHOCYTES % (AUTO) 34.8 % (20.0-44.0); MEAN CORPUSCULAR HGB CONC 33 g/dl (31.0-36.0); MEAN CORPUSCULAR VOLUME 95 fL (82-100); MONOCYTES # (AUTO) 0.3 /CMM (0.1-1.30); MONOCYTES % (AUTO) 8.4 % (2.0-12.0); NEUTROPHILS # (AUTO) 1.7 /CMM (1.8-8.9); NEUTROPHILS % (AUTO) 50.3 % (43.0-81.0); RED BLOOD CELL COUNT(AUTO) 3.17 MIL/uL (4.0-5.2); WHITE BLOOD COUNT (AUTO) 3.3 K/uL (4.3-11.0)
--- NOTE | 2019-02-03 07:46 | NUR ---
M/S RN OPENING NOTES PATIENT RECEIVED RESTING IN BED ALERT AND ORIENTED x4. ABLE TO FOLLOW COMMANDS AND MAKE NEEDS KNOWN. NO SIGNS OF DISTRESS, BREATHING EVEN AND UNLABORED ON ROOM AIR. CURRENTLY, NO COMPLAINTS OF PAIN. IV LOCATED ON LEFT HAND RUNNING D5 NS, PATENT AND IN TACT. PATIENT REMAINS ON CLEAR LIQUID DIET. SAFETY PRECAUTIONS ARE IN PLACE WITH BED IN LOWEST POSITION, BREAKS ON, AND CALL LIGHT WITHIN REACH. WILL CONTINUE TO MONITOR.
[2019-02-03 07:50] LABS: CALCIUM, SERUM 8.1 mg/dL (8.5-10.1); CREATININE 3.2 mg/dL (0.6-1.3); POTASSIUM 4.7 mmol/L (3.5-5.1)
[2019-02-03 07:55] LABS: PLATELET COUNT (AUTO) 49 /CMM (150-450)
[2019-02-03 08:00] VITALS: BP 139/83
[2019-02-03 08:06] LABS: HIV SCRN 4G wRFX Non Reactive (Non Reactive); IMMUNOGLOBULIN A, SERUM 226 mg/dL (87-352); IMMUNOGLOBULIN G, SERUM 1383 mg/dL (700-1600); IMMUNOGLOBULIN M, SERUM 117 mg/dL (26-217)
[2019-02-03 08:07] LABS: BAND % (MANUAL) 1 % (0.0-5.0); EOSINOPHILS % (MANUAL) 7 % (0-4); LYMPHOCYTES % (MANUAL) 33 % (16-48); MONOCYTES % (MANUAL) 7 % (0-11.0); NEUTROPHILS % (MANUAL) 52 (42-76)
[2019-02-03] MEDS: SUCRALFATE 1 G TABLET PO SCH ×4 (08:23→21:15)
[2019-02-03] MEDS: PANTOPRAZOLE 40 MG TABLET.DR PO SCH ×2 (08:23→17:19)
[2019-02-03] MEDS: ISOSORBIDE MONONITRATE (30MG) 30 MG TAB.SR.24H PO SCH (08:24)
[2019-02-03] MEDS: hydrALAZINE HCL 50 MG TABLET PO SCH ×3 (08:25→17:19)
[2019-02-03] MEDS: CARVEDILOL 3.125 MG TABLET PO SCH ×2 (08:25→17:19)
[2019-02-03] MEDS: AMLODIPINE BESYLATE 5 MG TABLET PO SCH (08:25)
[2019-02-03] MEDS: DOCUSATE SODIUM 250 MG CAPSULE PO SCH (08:26)
[2019-02-03] MEDS: PREGABALIN 25 MG CAPSULE PO SCH ×2 (08:28→17:20)
[2019-02-03] MEDS: TENOFOVIR ALAFENAMIDE FUMARATE 25 MG PO SCH (08:41)
[2019-02-03] MEDS: CIPROFLOXACIN IV RTU 400 MG in PREMIX 1 EA IV SCH ×2 (08:41→20:50)
--- NOTE | 2019-02-03 09:40 | NUR ---
M/S RN CONSENT CONSENT ATTAINED FROM PATIENT FOR PROCEDURE.
[2019-02-03 16:00] VITALS: BP 137/70
--- NOTE | 2019-02-03 17:48 | NUR ---
M/S RN CLOSING NOTES PATIENT CURRENTLY RESTING IN BED WATCHING TV, A/O x4. ABLE TO MAKE NEEDS KNOWN. NO SIGNS OF ACUTE DISTRESS AND NO CURRENT COMPLAINTS OF PAIN. PATIENT AMBULATORY. NPO AFTER MIDNIGHT DUE TO PROCEDURE TOMORROW. IV LOCATED ON L HAND #22. SAFETY PRECAUTIONS IN PLACE WITH BED IN LOWEST POSITION, BREAKS ON, SIDE RAILS UP x2, AND CALL LIGHT WITHIN REACH. WILL ENDORSE TO ONCOMING ELECTRICAL INTERN ABOUT NILSA.
[2019-02-03 20:11] VITALS: BP 128/62
[2019-02-04] MEDS: ONDANSETRON HCL/PF 4 MG/2 ML VIAL IVP PRN ×3 (00:47→22:20)
[2019-02-04] MEDS: HYDROMORPHONE INJ 2 MG/ML DISP.SYRIN IV PRN ×3 (02:19→22:28)
[2019-02-04] MEDS: diphenhydrAMINE HCL 50 MG/ML VIAL IV PRN ×2 (02:20→09:45)
[2019-02-04] MEDS: METRONIDAZOLE 500MG/ NS 100ML 500 MG in PREMIX 1 EA IV SCH ×3 (05:06→20:42)
--- NOTE | 2019-02-04 06:03 | NUR ---
MS RN NOTES AWAKE & RESPONSIVE. NOT IN ANY DISTRESS. NO SOB NOTED. DENIES ANY PAIN OR DISCOMFORT AT THIS TIME. WITH IVF INFUSING WELL. MONITORED ACCORDINGLY. CALL LIGHT WITHIN REACH. BED IN LOWEST POSITION. SR UP X 2 FOR SAFETY.W ILL ENDORSE TO NEXT SHIFT.
--- NOTE | 2019-02-04 06:10 | NUR ---
MS RN NOTES AWAKE & RESPONSIVE. NOT IN ANY DISTRESS. NO SOB NOTED. DENIES ANY PAIN OR DISCOMFORT AT THIS TIME. KEPT ON NPO P MN WITH IVF INFUSING WELL. MONITORED ACCORDINGLY. CALL LIGHT WITHIN REACH. BED IN LOWEST POSITION. SR UP X 2 FOR SAFETY.W ILL ENDORSE TO NEXT SHIFT.
[2019-02-04] MEDS: BLOOD SUGAR DIAGNOSTIC 1 EACH STRIP VI SCH ×4 (06:11→22:10)
[2019-02-04 06:30] LABS: *SPE A/G RATIO 0.9 (0.7-1.7); *SPE ALBUMIN 2.7 g/dL (2.9-4.4); *SPE ALPHA-1-GLOBULIN 0.2 g/dL (0.0-0.4); *SPE ALPHA-2-GLOBULIN 0.7 g/dL (0.4-1.0); *SPE BETA GLOBULIN 0.9 g/dL (0.7-1.3); *SPE GLOBULIN, TOTAL 3.1 g/dL (2.2-3.9); *SPE M-SPIKE Not Observed g/dL (Not Observed); *SPEGAMMA GLOBULIN 1.3 g/dL (0.4-1.8)
[2019-02-04 07:11] LABS: BASOPHILS % (AUTO) 0.4 % (0.0-2.0); EOSINOPHILS % (AUTO) 4.7 % (0.0-6.0); HEMATOCRIT 33 % (33-45); LYMPHOCYTES # (AUTO) 1.2 /CMM (0.8-4.8); LYMPHOCYTES % (AUTO) 35.6 % (20.0-44.0); MEAN CORPUSCULAR HGB CONC 33 g/dl (31.0-36.0); MEAN CORPUSCULAR VOLUME 96 fL (82-100); MONOCYTES # (AUTO) 0.2 /CMM (0.1-1.30); MONOCYTES % (AUTO) 7.1 % (2.0-12.0); NEUTROPHILS # (AUTO) 1.7 /CMM (1.8-8.9); NEUTROPHILS % (AUTO) 52.2 % (43.0-81.0); RED BLOOD CELL COUNT(AUTO) 3.43 MIL/uL (4.0-5.2); WHITE BLOOD COUNT (AUTO) 3.3 K/uL (4.3-11.0)
[2019-02-04] MEDS: SUCRALFATE 1 G TABLET PO SCH ×4 (07:30→22:10)
--- NOTE | 2019-02-04 07:30 | NUR ---
MS RN OPENING NOTES RECEIVED PT IN BED, AWAKE. EASILY AROUSED. A/O X3-4. PT TOLERATING RA, WITH NO ACUTE RESPIRATORY DISTRESS NOTED. PT DENIES ANY PAIN OR DISCOMFORT AT THIS TIME. PT DENIES ANY CONCERNS OR QUESTIONS WELL AT THIS MOMENT. PT AWARE OF THE PLAN OF CARE FOR TODAY. IVF D5 NS @ 75ML/HR TO LEFT HAND G22, INTACT AND FLUID INFUSING WELL. PT KEPT COMFORTABLE. CALL LIGHT KEPT WITHIN REACH. PT'S BED IN LOWEST, LOCKED POSITION WITH SR X3. WILL CONTINUE PLAN OF CARE.
[2019-02-04 07:38] LABS: PLATELET COUNT (AUTO) 48 /CMM (150-450)
[2019-02-04 07:41] LABS: BAND % (MANUAL) 1 % (0.0-5.0); CALCIUM, SERUM 8.3 mg/dL (8.5-10.1); CREATININE 3.4 mg/dL (0.6-1.3); EOSINOPHILS % (MANUAL) 3 % (0-4); LYMPHOCYTES % (MANUAL) 37 % (16-48); MAGNESIUM 1.5 mg/dL (1.8-2.4); MONOCYTES % (MANUAL) 6 % (0-11.0); NEUTROPHILS % (MANUAL) 53 (42-76); PHOSPHORUS 4.3 mg/dL (2.5-4.9); POTASSIUM 4.4 mmol/L (3.5-5.1)
[2019-02-04 08:00] VITALS: BP 153/79
[2019-02-04] MEDS: AMLODIPINE BESYLATE 5 MG TABLET PO SCH (08:01)
[2019-02-04] MEDS: CARVEDILOL 3.125 MG TABLET PO SCH ×2 (08:01→16:40)
[2019-02-04] MEDS: ISOSORBIDE MONONITRATE (30MG) 30 MG TAB.SR.24H PO SCH (08:02)
[2019-02-04] MEDS: hydrALAZINE HCL 50 MG TABLET PO SCH ×3 (08:02→16:40)
[2019-02-04] MEDS ORDERED: ANESTHESIA TRAY IN PYXIS 1 EA TRAY MC ONE (08:27)
--- NOTE | 2019-02-04 08:32 | NUR ---
MS RN NOTES PT LEFT THE UNIT AND WENT TO EGD PROCEDURE AT 0825.
[2019-02-04] MEDS ORDERED: ERGOCALCIFEROL (VITAMIN D 2) 50,000 UNIT CAPSULE PO SCH (09:00)
[2019-02-04 09:35] VITALS: BP 96/49
--- NOTE | 2019-02-04 09:44 | NUR ---
MS RN NOTES pt just came back from procedure. vitals rechecked and recorded.
[2019-02-04] MEDS: PREGABALIN 25 MG CAPSULE PO SCH ×2 (09:45→16:40)
[2019-02-04] MEDS: DOCUSATE SODIUM 250 MG CAPSULE PO SCH (09:45)
[2019-02-04] MEDS: PANTOPRAZOLE 40 MG TABLET.DR PO SCH ×2 (09:45→16:40)
[2019-02-04] MEDS: CIPROFLOXACIN IV RTU 400 MG in PREMIX 1 EA IV SCH ×2 (09:54→22:10)
[2019-02-04] MEDS: TENOFOVIR ALAFENAMIDE FUMARATE 25 MG PO SCH (09:54)
[2019-02-04] MEDS: Magnesium 1GM/D5W 100ML PREMIX 100 ML IV SCH ×2 (10:51→12:10)
[2019-02-04] MEDS: INSULIN REGULAR, HUMAN 100 UNIT/ML 3 ML VIAL SQ PRN ×2 (11:54→16:47)
--- NOTE | 2019-02-04 15:30 | NUR ---
MS RN NOTES PER DR STEVENS NO NEED FOR NPO BEFORE BONE MARROW BIOPSY FOR TOMORROW. PT AWARE OF PLAN. WILL ENDORSE TO INCOMING [facility] NURSE FOR NILSA.
[2019-02-04 16:00] VITALS: BP 131/74
[2019-02-04] MEDS: IV D5/ 0.9% NACL 1,000 ML IV PRN (17:22)
--- NOTE | 2019-02-04 18:38 | NUR ---
MS RN CLOSING NOTES PT IN BED, INTERMITTENTLY DOZING OFF. EASILY AROUSED. A/O X3-4. PT TOLERATING RA, WITH NO ACUTE RESPIRATORY DISTRESS NOTED. PT DENIES ANY PAIN OR DISCOMFORT AT THIS TIME. PT DENIES ANY CONCERNS OR QUESTIONS WELL AT THIS MOMENT. PT AWARE OF THE PLAN OF CARE FOR TODAY. IVF D5 NS @ 75ML/HR TO LEFT HAND G22, INTACT AND FLUID INFUSING WELL. ALL NEEDS AND CARE ATTENDED. PT KEPT COMFORTABLE. CALL LIGHT KEPT WITHIN REACH. PT'S BED IN LOWEST, LOCKED POSITION WITH SR X3. WILL ENDORSE TO INCOMING NIGHT NURSE FOR NILSA.
--- NOTE | 2019-02-04 19:45 | NUR ---
MSRN SLEEPING, TO CONTINUE
[2019-02-04 20:00] VITALS: BP 110/58
--- NOTE | 2019-02-04 20:15 | NUR ---
MSRN EASILY AWAKENED. PRESENT IVF INFUSING, SITE CLOSELY WATCHED. AMBULATORY, VOIDED FREELY, STEADY GAIT.
[2019-02-04 20:28] VITALS: BP 110/58
--- NOTE | 2019-02-04 22:00 | NUR ---
MSRN ACCUCHECK WAS 123, NO COVERAGE, SNACKS PROVIDED.
--- NOTE | 2019-02-04 22:30 | NUR ---
MSRN IV SITE DISLODGED, SITE SLIGHTLY SWOLLEN. RESTARTED BY RN, UNSUCCESSFUL, FEW ATTEMPTS MADE HARD STICK. HAVE FARAZ RN RESTART HL, 22 GAUGE ON LEFT WRIST WITH GOOD BLOOD RETURN. PRESENT ANTIBIOTICS CONTINUED.
[2019-02-05] MEDS: diphenhydrAMINE HCL 50 MG/ML VIAL IV PRN ×3 (00:41→22:10)
[2019-02-05] MEDS: METRONIDAZOLE 500MG/ NS 100ML 500 MG in PREMIX 1 EA IV SCH ×3 (05:45→20:34)
--- NOTE | 2019-02-05 06:50 | NUR ---
MSRN BS 88. NO OTHER NEEDS MADE.PRESENT IVF INFUSING WELL.
[2019-02-05 07:16] LABS: BASOPHILS % (AUTO) 0.5 % (0.0-2.0); EOSINOPHILS % (AUTO) 4.1 % (0.0-6.0); HEMATOCRIT 29 % (33-45); HEMOGLOBIN 9.9 g/dL (11.5-14.8); LYMPHOCYTES # (AUTO) 1.5 /CMM (0.8-4.8); LYMPHOCYTES % (AUTO) 39.6 % (20.0-44.0); MEAN CORPUSCULAR HGB CONC 34 g/dl (31.0-36.0); MEAN CORPUSCULAR VOLUME 95 fL (82-100); MONOCYTES # (AUTO) 0.3 /CMM (0.1-1.30); MONOCYTES % (AUTO) 6.8 % (2.0-12.0); NEUTROPHILS # (AUTO) 1.8 /CMM (1.8-8.9); RED BLOOD CELL COUNT(AUTO) 3.09 MIL/uL (4.0-5.2); WHITE BLOOD COUNT (AUTO) 3.7 K/uL (4.3-11.0)
[2019-02-05 07:38] LABS: PLATELET COUNT (AUTO) 40 /CMM (150-450)
[2019-02-05 07:41] LABS: CALCIUM, SERUM 8.2 mg/dL (8.5-10.1); CREATININE 3.2 mg/dL (0.6-1.3); PHOSPHORUS 3.3 mg/dL (2.5-4.9); POTASSIUM 4.5 mmol/L (3.5-5.1)
[2019-02-05] MEDS: HYDROMORPHONE INJ 2 MG/ML DISP.SYRIN IV PRN ×3 (07:56→20:16)
[2019-02-05] MEDS: ONDANSETRON HCL/PF 4 MG/2 ML VIAL IVP PRN ×3 (07:56→20:15)
--- NOTE | 2019-02-05 07:56 | NUR ---
MEDICATED FOR PAIN AND NAUSEA.IV RUNNING,NO OTHER COMPLAINTS.IN GOOD SPIRITS.
[2019-02-05 08:00] VITALS: BP 151/80
[2019-02-05 08:36] LABS: EOSINOPHILS % (MANUAL) 4 % (0-4); LYMPHOCYTES % (MANUAL) 40 % (16-48); MONOCYTES % (MANUAL) 5 % (0-11.0); NEUTROPHILS % (MANUAL) 51 (42-76)
[2019-02-05] MEDS: PANTOPRAZOLE 40 MG TABLET.DR PO SCH ×2 (09:00→17:36)
[2019-02-05] MEDS: SUCRALFATE 1 G TABLET PO SCH ×4 (09:00→21:29)
--- NOTE | 2019-02-05 09:00 | NUR ---
[place] NGUYEN INFORMED THAT PLATELET COUNT IS LOW.
[2019-02-05] MEDS: ISOSORBIDE MONONITRATE (30MG) 30 MG TAB.SR.24H PO SCH (09:01)
[2019-02-05] MEDS: DOCUSATE SODIUM 250 MG CAPSULE PO SCH (09:01)
[2019-02-05] MEDS: PREGABALIN 25 MG CAPSULE PO SCH ×2 (09:01→17:35)
[2019-02-05] MEDS: CARVEDILOL 3.125 MG TABLET PO SCH ×2 (09:01→17:36)
[2019-02-05] MEDS: AMLODIPINE BESYLATE 5 MG TABLET PO SCH (09:02)
[2019-02-05] MEDS: BLOOD SUGAR DIAGNOSTIC 1 EACH STRIP VI SCH ×4 (09:03→20:35)
[2019-02-05] MEDS: TENOFOVIR ALAFENAMIDE FUMARATE 25 MG PO SCH (09:05)
[2019-02-05] MEDS: CIPROFLOXACIN IV RTU 400 MG in PREMIX 1 EA IV SCH ×2 (09:05→21:27)
--- NOTE | 2019-02-05 09:19 | NUR ---
MEDICATED FOR ITCHING WITH BENADRYL.
[2019-02-05] MEDS: hydrALAZINE HCL 50 MG TABLET PO SCH ×3 (11:03→17:00)
--- NOTE | 2019-02-05 11:07 | NUR ---
BP RECHECKED AND PT. DID NOT WANT APRESOLINE AT THIS TIME,BP 137/64 HEART RATE 79.
--- NOTE | 2019-02-05 13:40 | NUR ---
MEDICATED AGAIN FOR PAIN AND NAUSEA.
--- NOTE | 2019-02-05 15:12 | NUR ---
RESTING AT THIS TIME.
[2019-02-05] MEDS: IV D5/ 0.9% NACL 1,000 ML IV PRN (15:40)
[2019-02-05 16:00] VITALS: BP 123/66
--- NOTE | 2019-02-05 19:20 | NUR ---
MS RN NOTES RECEIVED ON BED A/O X4,BREATHING REGULAR,NOT IN ANY FORM OF DISTRESS.IVF IN PROGRESS AT 75ML/HR RATE VIA IV PUMP ON LEFT WRIST.SITE PATENT.DENIES DISCOMFORTS AT THE MOMENT.CALL LIGHT IN REACH,NEEDS ANTICIPATED.
[2019-02-05 20:00] VITALS: BP 132/69
--- NOTE | 2019-02-05 20:15 | NUR ---
MS RN NOTES FEELING NAUSEATED,ZOFRAN 4MG IV GIVEN ORDERED.
--- NOTE | 2019-02-05 20:16 | NUR ---
MS RN NOTES PAIN MANAGEMENT C/O ABDOMINAL PAIN 8/10 ON PAIN SCALE, MEDICATED WITH DILAUDID 0.5MG IV ORDERED
[2019-02-05 20:24] VITALS: BP 133/69
--- NOTE | 2019-02-05 21:07 | NUR ---
MS RN NOTES ACCU-CHECK BLOOD SUGAR CHECK 125,NO INSULIN COVERAGE.WITH SNACKS AT BEDSIDE PER PATIENT REQUEST.
[2019-02-06] MEDS: METRONIDAZOLE 500MG/ NS 100ML 500 MG in PREMIX 1 EA IV SCH (05:01)
[2019-02-06] MEDS: BLOOD SUGAR DIAGNOSTIC 1 EACH STRIP VI SCH ×4 (05:57→21:20)
--- NOTE | 2019-02-06 06:10 | NUR ---
MS RN NOTES ACCU-CHECK BLOOD SUGAR CHECK 121,NO INSULIN COVERAGE.
--- NOTE | 2019-02-06 06:25 | NUR ---
MS RN NOTES NO SIGNIFICANT CHANGE IN STATUS,PAIN MANAGEMENT EFFECTIVE,ITCHINESS IMPROVED.SALINE LOCK LEFT WRIST REMAINS PATENT, IV ABX TOLERATED WELL.NEGATIVE FOR DIARRHEA.CALL LIGHT IN REACH,NEEDS ATTENDED.WILL ENDORSE TO DAY NURSE FOR NILSA.
[2019-02-06 06:28] LABS: BASOPHILS % (AUTO) 0.6 % (0.0-2.0); EOSINOPHILS % (AUTO) 4.4 % (0.0-6.0); HEMATOCRIT 30 % (33-45); HEMOGLOBIN 10.1 g/dL (11.5-14.8); LYMPHOCYTES # (AUTO) 1.1 /CMM (0.8-4.8); LYMPHOCYTES % (AUTO) 32.9 % (20.0-44.0); MEAN CORPUSCULAR HGB CONC 34 g/dl (31.0-36.0); MEAN CORPUSCULAR VOLUME 96 fL (82-100); MONOCYTES # (AUTO) 0.2 /CMM (0.1-1.30); MONOCYTES % (AUTO) 6.7 % (2.0-12.0); NEUTROPHILS # (AUTO) 1.9 /CMM (1.8-8.9); NEUTROPHILS % (AUTO) 55.4 % (43.0-81.0); RED BLOOD CELL COUNT(AUTO) 3.08 MIL/uL (4.0-5.2); WHITE BLOOD COUNT (AUTO) 3.4 K/uL (4.3-11.0)
[2019-02-06 06:30] LABS: CALCIUM, SERUM 7.9 mg/dL (8.5-10.1)
--- NOTE | 2019-02-06 07:29 | NUR ---
MS RN OPENING NOTES RECEIVED PATIENT IN BED RESTING COMFORTABLY IN MODERATE HIGH BACK REST. A/O X 4. NO SIGNS OF DISTRESS NOTED AT THIS TIME. ON IV FLUIDS ON LEFT WRIST #22 RUNNING @75 ML/HR. PATENT AND INTACT. SAFETY MEASURES IN PLACE, BED IN LOW LOCKED POSITION WITH SIDE RAILS UP X2. CALL LIGHT WITHIN REACH. WILL CONTINUE TO MONITOR.
[2019-02-06 08:17] VITALS: BP 156/74
[2019-02-06] MEDS: TENOFOVIR ALAFENAMIDE FUMARATE 25 MG PO SCH (08:20)
[2019-02-06] MEDS: PREGABALIN 25 MG CAPSULE PO SCH ×2 (08:20→16:40)
[2019-02-06] MEDS: SUCRALFATE 1 G TABLET PO SCH ×4 (08:21→21:07)
[2019-02-06] MEDS: PANTOPRAZOLE 40 MG TABLET.DR PO SCH ×2 (08:21→16:40)
[2019-02-06] MEDS: DOCUSATE SODIUM 250 MG CAPSULE PO SCH (08:21)
[2019-02-06] MEDS: ISOSORBIDE MONONITRATE (30MG) 30 MG TAB.SR.24H PO SCH (08:21)
[2019-02-06] MEDS: CARVEDILOL 3.125 MG TABLET PO SCH ×2 (08:21→16:40)
[2019-02-06] MEDS: AMLODIPINE BESYLATE 5 MG TABLET PO SCH (08:22)
[2019-02-06] MEDS: hydrALAZINE HCL 50 MG TABLET PO SCH ×3 (08:22→16:40)
--- NOTE | 2019-02-06 08:30 | NUR ---
RN NOTES RECEIVED REPORT FROM LAB THAT PATIENT PLATELET IS 10, ON UNIT MADE AWARE OF CRITICAL RESULTS.
[2019-02-06] MEDS: CIPROFLOXACIN HCL 500 MG TABLET PO SCH ×2 (08:36→20:07)
[2019-02-06 08:40] LABS: PLATELET COUNT (AUTO) 41 /CMM (150-450)
--- NOTE | 2019-02-06 08:40 | NUR ---
RN NOTES RECEIVED A REPORT FROM LAB THAT THE PLATELET IS NOT 10, PLATELET COUNT IS 41. MD ON UNIT MADE AWARE. WILL CONTINUE TO MONITOR PATIENT.
[2019-02-06] MEDS: HYDROMORPHONE INJ 2 MG/ML DISP.SYRIN IV PRN ×3 (08:44→19:47)
[2019-02-06 09:04] LABS: EOSINOPHILS % (MANUAL) 1 % (0-4); LYMPHOCYTES % (MANUAL) 32 % (16-48); MONOCYTES % (MANUAL) 3 % (0-11.0); NEUTROPHILS % (MANUAL) 64 (42-76)
[2019-02-06] MEDS: INSULIN REGULAR, HUMAN 100 UNIT/ML 3 ML VIAL SQ PRN (11:26)
[2019-02-06] MEDS: METRONIDAZOLE 500 MG TABLET PO SCH ×2 (12:07→20:07)
[2019-02-06] MEDS ORDERED: LIDOCAINE 1% INJ 50 ML MDV IJ ONE (13:00)
[2019-02-06] MEDS: IV D5/ 0.9% NACL 1,000 ML IV PRN (14:21)
[2019-02-06 16:12] VITALS: BP 145/82
[2019-02-06] MEDS: diphenhydrAMINE HCL 50 MG/ML VIAL IV PRN (16:41)
--- NOTE | 2019-02-06 19:00 | NUR ---
MS RN CLOSING NOTES PATIENT IN BED RESTING COMFORTABLY IN MODERATE HIGH BACK REST. A/O X 4. NO SIGNS OF DISTRESS NOTED THROUGHOUT THE SHIFT. ON IV FLUIDS ON REN MIDLINE RUNNING @75 ML/HR. PATENT AND INTACT. SAFETY MEASURES IN PLACE, BED IN LOW LOCKED POSITION WITH SIDE RAILS UP X2. CALL LIGHT WITHIN REACH. WILL ENDORSE TO PROCUREMENT INTERNSHIP NURSE FOR NILSA.
--- NOTE | 2019-02-06 19:33 | NUR ---
MS R OPENING NOTE RECEIVED PATIENT IN BED. A/OX4. TOLERATING ROOM AIR. RESPIRATIONS ARE EVEN AND UNLABORED. NO S/S SOB NOTE. REQUESTING PAIN MEDICATION, INFORMED I WILL COMPLETE REPORT AND SEE WHEN SCHEDULED MED IS DUE. IN NO APPARENT DISTRESS. IV ACCESS IN REN MIDLINE RUNNING D5NS@75ML/HR. BED IS LOW AND LOCKED, SIDE RAILS UP X2, HOB ELEVATED 20 DEGREES, CALL LIGHT WITHIN REACH. WILL CONTINUE TO MONITOR.
[2019-02-06] MEDS: ONDANSETRON HCL/PF 4 MG/2 ML VIAL IVP PRN (19:45)
--- NOTE | 2019-02-06 19:59 | NUR ---
MS RN NOTE ADMINISTER PRN DILAUDID 0.5 MG FOR PAIN 8/10 AT BIOPSY SITE, AND PRN ZOFRAN 4MG FOR NAUSEA. WILL CONTINUE TO MONITOR.
[2019-02-06 20:00] VITALS: BP 124/68
--- NOTE | 2019-02-06 20:07 | NUR ---
MS RN NOTE WASTED MEDICATION WITH PRECIOUS RIVAS IN OMNI CELL. PLACED IN WASTE PHARMACEUTICAL BIN, WITNESSED BY PRECIOUS RIVAS.
[2019-02-06] MEDS: *INSULIN REGULAR(HUMULIN R)HUM 100 UNIT/ML VIAL SQ PRN (21:28)
[2019-02-07] MEDS: HYDROMORPHONE INJ 2 MG/ML DISP.SYRIN IV PRN ×3 (00:59→10:31)
[2019-02-07] MEDS: ONDANSETRON HCL/PF 4 MG/2 ML VIAL IVP PRN (04:44)
[2019-02-07] MEDS: IV D5/ 0.9% NACL 1,000 ML IV PRN (04:44)
[2019-02-07] MEDS: METRONIDAZOLE 500 MG TABLET PO SCH ×2 (04:44→12:11)
[2019-02-07 06:22] LABS: BASOPHILS % (AUTO) 0.5 % (0.0-2.0); EOSINOPHILS % (AUTO) 4.5 % (0.0-6.0); HEMATOCRIT 30 % (33-45); HEMOGLOBIN 10.1 g/dL (11.5-14.8); LYMPHOCYTES # (AUTO) 1.6 /CMM (0.8-4.8); LYMPHOCYTES % (AUTO) 39.4 % (20.0-44.0); MEAN CORPUSCULAR HGB CONC 34 g/dl (31.0-36.0); MEAN CORPUSCULAR VOLUME 95 fL (82-100); MONOCYTES # (AUTO) 0.2 /CMM (0.1-1.30); MONOCYTES % (AUTO) 6.2 % (2.0-12.0); NEUTROPHILS % (AUTO) 49.4 % (43.0-81.0); RED BLOOD CELL COUNT(AUTO) 3.14 MIL/uL (4.0-5.2); WHITE BLOOD COUNT (AUTO) 3.9 K/uL (4.3-11.0)
[2019-02-07] MEDS: BLOOD SUGAR DIAGNOSTIC 1 EACH STRIP VI SCH ×3 (06:28→16:40)
--- NOTE | 2019-02-07 06:43 | NUR ---
MS RN CLOSING NOTE PATIENT IN BED. A/OX4. REMAINS TOLERATING ROOM AIR. RESPIRATIONS ARE EVEN AND UNLABORED. NO SOB NOTE. MANAGED PAIN WITH 0.5 MG DILAUDID THROUGHOUT NIGHT. NAUSEA MANAGED WITH ZOFRAN, NO EPISODE OF EMESIS. NO DISTRESS NOTED. IV ACCESS MAINTAINED IN REN MIDLINE RUNNING D5NS@75ML/HR. BED REMAINS LOW AND LOCKED, SIDE RAILS UP X2, HOB ELEVATED 20 DEGREES, CALL LIGHT WITHIN REACH. WILL ENDORSE TO NEXT SHIFT
[2019-02-07 06:52] LABS: CALCIUM, SERUM 7.9 mg/dL (8.5-10.1); CREATININE 2.9 mg/dL (0.6-1.3); POTASSIUM 4.6 mmol/L (3.5-5.1)
[2019-02-07 06:55] LABS: PLATELET COUNT (AUTO) 42 /CMM (150-450)
--- NOTE | 2019-02-07 06:55 | NUR ---
MS EVLEYN NOTE RECEIVED A CRITICAL LAB FOR PLATELET LEVEL 42. CALLED , UNABLE TO REACH AT THIS TIME. WILL ENDORSE TO NEXT RN TO FOLLOW UP WITH MD. Addendum: 02/07/19 at 0701 by JANET MOREJON RN [facility] AWARE
--- NOTE | 2019-02-07 07:22 | NUR ---
MS RN OPENING NOTES RECEIVED PATIENT IN BED RESTING COMFORTABLY IN MODERATE HIGH BACK REST. A/O X 4. NO SIGNS OF DISTRESS NOTED AT THIS TIME. ON IV FLUIDS ON RIGHT UPPER ARM MIDLINE RUNNING @75 ML/HR. PATENT AND INTACT. SAFETY MEASURES IN PLACE, BED IN LOW LOCKED POSITION WITH SIDE RAILS UP X2. CALL LIGHT WITHIN REACH. WILL CONTINUE TO MONITOR.
[2019-02-07 08:05] LABS: EOSINOPHILS % (MANUAL) 4 % (0-4); LYMPHOCYTES % (MANUAL) 36 % (16-48); MONOCYTES % (MANUAL) 7 % (0-11.0); NEUTROPHILS % (MANUAL) 53 (42-76)
[2019-02-07 08:10] VITALS: BP 149/76
[2019-02-07] MEDS: SUCRALFATE 1 G TABLET PO SCH ×3 (08:17→16:31)
[2019-02-07] MEDS: TENOFOVIR ALAFENAMIDE FUMARATE 25 MG PO SCH (08:18)
[2019-02-07] MEDS: PANTOPRAZOLE 40 MG TABLET.DR PO SCH ×2 (08:18→16:30)
[2019-02-07] MEDS: CIPROFLOXACIN HCL 500 MG TABLET PO SCH (08:18)
[2019-02-07] MEDS: ISOSORBIDE MONONITRATE (30MG) 30 MG TAB.SR.24H PO SCH (08:18)
[2019-02-07] MEDS: PREGABALIN 25 MG CAPSULE PO SCH ×2 (08:19→16:30)
[2019-02-07] MEDS: hydrALAZINE HCL 50 MG TABLET PO SCH ×3 (08:19→16:30)
[2019-02-07] MEDS: AMLODIPINE BESYLATE 5 MG TABLET PO SCH (08:19)
[2019-02-07] MEDS: CARVEDILOL 3.125 MG TABLET PO SCH ×2 (08:19→16:30)
[2019-02-07] MEDS: DOCUSATE SODIUM 250 MG CAPSULE PO SCH (08:23)
[2019-02-07] MEDS: diphenhydrAMINE HCL 50 MG/ML VIAL IV PRN (08:26)
--- NOTE | 2019-02-07 08:30 | NUR ---
RN NOTES BRYANT MERINO ON UNIT, INFORMED REGARDING PLATELET OF 42, WITH NO NEW ORDERS AT THIS TIME. WILL CONTINUE TO MONITOR.
[2019-02-07] MEDS ORDERED: *INS REG SQ (12:01)
[2019-02-07] MEDS ORDERED: HYDR-4384 PO (12:01)
[2019-02-07] MEDS ORDERED: OMEP20TA20 PO (12:01)
[2019-02-07] MEDS ORDERED: INSU100V28 SQ (12:01)
[2019-02-07] MEDS ORDERED: METR500T PO (12:01)
[2019-02-07] MEDS ORDERED: CIPR500T5 PO (12:01)
[2019-02-07 15:40] VITALS: BP 138/69
[2019-02-07 16:30] VITALS: BP 138/69
[2019-02-07] MEDS: INSULIN REGULAR, HUMAN 100 UNIT/ML 3 ML VIAL SQ PRN (16:41)
--- NOTE | 2019-02-07 18:20 | NUR ---
REPEATER OPERATOR NOTES PATIENT DISCHARGED IN STABLE CONDITION. A/O X4. ABLE TO MAKE NEEDS KNOWN. V/S TAKEN, STABLE AND RECORDED. PATIENT'S IV REMOVED AND APPLIED PRESSURE DRESSING. SKIN IS INTACT. NAME ARM BAND REMOVED. ALL BELONGINGS CHECKED AND SIGNED. HEALTH TEACHINGS/ DISCHARGE INSTRUCTIONS GIVEN AND VERBALIZED UNDERSTANDING. PATIENT LEFT UNIT VIA WHEELCHAIR WITH FAMILY AND HOSPITAL STAFF. NO SIGNS OF DISTRESS NOTED. CHARGE NURSE AWARE OF DISCHARGED.
== END 2019-02-07 18:45 | disposition home or self-care (01) | DRG 814 ==
LOC: ER 11:59 → MED 14:15
PROVIDERS: ADMIT Hospitalist; ATTEND Nurse Practitioner Acute Care
PROC: 0DB78ZX Excision of Stomach, Pylorus, Via Natural or Artificial Opening Endoscopic, Diagnostic (ICD-10-PCS; principal; 2019-02-04)
PROC: 05H933Z Insertion of Infusion Device into Right Brachial Vein, Percutaneous Approach (ICD-10-PCS; 2019-02-06)
PROC: 07DR3ZX Extraction of Iliac Bone Marrow, Percutaneous Approach, Diagnostic (ICD-10-PCS; 2019-02-06)
DX: D73.1 Hypersplenism (principal); E43 Unspecified severe protein-calorie malnutrition; N17.0 Acute kidney failure with tubular necrosis; L03.311 Cellulitis of abdominal wall; N18.4 Chronic kidney disease, stage 4 (severe); I13.0 Hypertensive heart and chronic kidney disease with heart failure and stage 1 through stage 4 chronic kidney disease, or unspecified chronic kidney disease; D61.818 Other pancytopenia; B18.1 Chronic viral hepatitis B without delta-agent; D68.59 Other primary thrombophilia; K76.6 Portal hypertension; I50.9 Heart failure, unspecified; G43.909 Migraine, unspecified, not intractable, without status migrainosus; K74.60 Unspecified cirrhosis of liver; K29.80 Duodenitis without bleeding; K29.70 Gastritis, unspecified, without bleeding; K21.9 Gastro-esophageal reflux disease without esophagitis; I25.10 Atherosclerotic heart disease of native coronary artery without angina pectoris; B19.20 Unspecified viral hepatitis C without hepatic coma; D69.6 Thrombocytopenia, unspecified; Z95.1 Presence of aortocoronary bypass graft; Z88.5 Allergy status to narcotic agent; Z79.4 Long term (current) use of insulin; Z79.899 Other long term (current) drug therapy; Z79.51 Long term (current) use of inhaled steroids; Z90.49 Acquired absence of other specified parts of digestive tract; Z83.3 Family history of diabetes mellitus; K44.9 Diaphragmatic hernia without obstruction or gangrene; E78.5 Hyperlipidemia, unspecified; E10.22 Type 1 diabetes mellitus with diabetic chronic kidney disease; E66.9 Obesity, unspecified; K31.89 Other diseases of stomach and duodenum; Z68.33 Body mass index [BMI] 33.0-33.9, adult; K25.9 Gastric ulcer, unspecified as acute or chronic, without hemorrhage or perforation; Z74.09 Other reduced mobility
CPT/HCPCS: 36415; 71045-TC; 80048-TC; 80053-TC; 80061-TC; 80076-TC; 81000-TC; 82378; 82728-TC; 82784; 82962-TC; 83540-TC; 83690-TC; 83735-TC; 84100-TC; 84155; 84165; 84443-TC; 84484-TC; 85025-TC; 85610-TC; 85730-TC; 86334; 86706; 86803; 87081-TC; 87340; 93976-TC; 97116-TC; 97530-TC; A4216; G0378; J0744; J1170; J1200; J1815; J1885; J2405; J2543; J2704; J3475; J3490; J7030; J7042; J7060